=== PATIENT | female | born 1990 | race Caucasian/White ===

== ENCOUNTER 2023-06-28 20:35 | Outpatient (REF) | payer OTHER, SELFPAY ==
[2023-07-03 07:09] LABS: Age Gdln ACOG Testing Note (.); HPV Aptima Negative (Negative); IGP, Aptima HPV, rfx 16/18,45 Note (.)
== END 2023-06-28 20:36 | disposition home or self-care (01) ==
LOC: LAB 20:35
PROVIDERS: Visit Provider Obstetrics & Gynecology
DX: Z12.4 Encounter for screening for malignant neoplasm of cervix (principal)
CPT/HCPCS: 87624; G0145

== ENCOUNTER 2023-06-30 08:31 | Outpatient (OUT) | payer OTHER, SELFPAY ==
--- NOTE | 2023-06-30 08:32 | US_ITS ---
The [address] [address] Patient Name: PAM LAST MRN: [id number] date: 1990 Sex: F Assigned Patient Location: Current Patient Location: US Accession/Order Number: [id number] Exam Date: 06/30/2023 08:31 Report Date: 06/30/2023 09:19 At the request of: AMAN IRVING Procedure: US pelvis w/ transvaginal EXAM: Pelvic ultrasound HISTORY: . IUD PLACEMENT . COMPARISON: None. TECHNIQUE: Transabdominal and transvaginal scanning was performed FINDINGS: Scanning of the pelvis demonstrates an anteverted uterus measuring 7.8 x 3.9 x 4.9 cm. Endometrial complex measures 7 mm. Echogenic linear foci are noted within the endometrial complex consistent with an IUD which appears in adequate position. Right ovary measures 3.3 x 1.8 x 2.8 cm. Color-flow is noted. Resistive indexes 0.6. Follicles are noted. Left ovary measures 2.3 x 1 x 1.9 cm. Color-flow was noted. Follicles are noted. No free fluid was noted in the cul-de-sac. US/US pelvis w/ transvaginal IMPRESSION: 1. Normal-appearing uterus and endometrial complex with IUD in place. 2. Normal-appearing ovaries. Electronically authenticated by: ELVIN SMITH Date: 06/30/2023 09:19
== END 2023-06-30 08:32 | disposition home or self-care (01) ==
LOC: US 08:31
PROVIDERS: Visit Provider Obstetrics & Gynecology
DX: N93.8 Other specified abnormal uterine and vaginal bleeding (principal)
CPT/HCPCS: 76830; 76856

== ENCOUNTER 2023-09-30 10:10 | Emergency (ER) | payer OTHER, SELFPAY ==
[2023-09-30 10:16] VITALS: BP 122/86; PULSE 92; RESP 16; TEMP 36.7; O2SAT 96; BMI 39.0
--- NOTE | 2023-09-30 10:33 | ED.ABDPAIN1 ---
HPI - Abdominal Pain General Chief Complaint: Abdominal Pain Stated Complaint: ABD PAIN X3 DAYS Time Seen by Provider: 09/30/23 10:27 Source: patient Mode of arrival: walk-in History of Present Illness HPI narrative: 33-year-old female presents for abdominal pain. It's in the epigastric area and right upper quadrant and she's had it for three days. It's keeping her awake at night. She's never had gallbladder issues. The fever or constipation. She has had some slight diarrhea but that is normal for her. The pain is moderate. Related Data Home Medications Medication Instructions Recorded Confirmed empagliflozin 25 mg tablet 25 mg PO DAILY 09/30/23 09/30/23 (Jardiance) metformin 500 mg tablet 1,000 mg PO QAM 09/30/23 09/30/23 tirzepatide 10 mg/0.5 mL 10 mg subcut QAM 09/30/23 09/30/23 subcutaneous pen injector (Mounjaro) Previous Rx's Medication Instructions Recorded acetaminophen 300 mg-codeine 30 mg 1 tab PO Q6H PRN pain 5 days #20 09/30/23 tablet tabs ondansetron 4 mg disintegrating 4 mg PO Q6H PRN nausea and 09/30/23 tablet vomiting #20 tabs Allergies Allergy/AdvReac Type Severity Reaction Status Date / Time No Known Drug Allergies Allergy Verified 09/30/23 10:16 Review of Systems ROS Narrative A ten point review of systems is negative except as noted above. Exam Narrative Exam Narrative: Nurses note and vital signs reviewed and patient is not hypoxic. General: The patient appears well and in no apparent distress. Patient is resting comfortably on cart. Skin: Warm, dry, no pallor noted. There is no rash noted. Head: Normocephalic, atraumatic Eye: Normal conjunctiva, no drainage Ears, Nose, Mouth, and Throat: oral mucosa is moist. Nares patent. Cardiovascular: Regular Rate and Rhythm Respiratory: Patient is in no distress, no accessory muscle use, lungs are clear to auscultation, no wheezing, rales or rhonchi Back: non-tender GI: mild tenderness in the epigastric area and right upper quadrant. No mass. Musculoskeletal: The patient has no evidence of calf tenderness, no pitting edema, symmetrical pulses noted bilaterally Neurological: A&O, normal speech Psychiatric: Cooperative Constitutional Vital Signs, click to edit/add: Last Vital Signs Temp 98.0 F 09/30/23 10:16 Pulse 92 H 09/30/23 10:16 Resp 16 09/30/23 10:16 BP 122/86 09/30/23 10:16 Pulse Ox 96 09/30/23 10:16 O2 Del Method Room Air 09/30/23 10:16 Course Vital Signs Vital signs: Vital Signs Temperature 98.0 F 09/30/23 10:16 Pulse Rate 92 H 09/30/23 10:16 Respiratory Rate 16 09/30/23 10:16 Blood Pressure 122/86 09/30/23 10:16 Pulse Oximetry 96 09/30/23 10:16 Oxygen Delivery Method Room Air 09/30/23 10:16 Temperature 98.0 F 09/30/23 10:16 Pulse Rate 92 H 09/30/23 10:16 Respiratory Rate 16 09/30/23 10:16 Blood Pressure 122/86 09/30/23 10:16 Pulse Oximetry 96 09/30/23 10:16 Oxygen Delivery Method Room Air 09/30/23 10:16 MDM - Abdominal Pain MDM Narrative Medical decision making narrative: Blood work is nonspecific. GB ultrasound shows stones. She is referred to general surgery. No evidence of acute cholecystitis. Treatment diagnosis and follow-up were discussed with the patient. Differential Diagnosis Differential diagnosis: Likely abdominal pain, pancreatitis and other (biliary colic, cholelithiasis, hepatitis) Lab Data Attestation: I reviewed the patient's lab results. Labs: Lab Results 09/30/23 Range/Units 10:25 WBC 11.1 H (4.0-11.0) 10^3/uL RBC 5.21 (4.20-5.40) 10^6/uL Hgb 13.1 (12.0-16.0) g/dL Hct 42.0 (36.0-48.0) % MCV 80.6 L (81.0-99.0) fL MCH 25.1 L (26.7-34.0) pg MCHC 31.2 (29.9-35.2) g/dL RDW 15.4 H (11.0-15.0) % Plt Count 368 (150-450) 10^3/uL MPV 9.3 L (9.5-13.5) fL Neut % (Auto) 61.1 (43.0-75.0) % Lymph % (Auto) 31.7 (20.5-60.0) % [place] % (Auto) 5.1 (1.7-12.0) % Eos % (Auto) 0.8 L (0.9-7.0) % Baso % (Auto) 0.6 (0.2-2.0) % Neut # (Auto) 6.8 H (1.4-6.5) 10^3/uL Lymph # (Auto) 3.5 (1.2-3.8) 10^3/uL [place] # (Auto) 0.6 (0.3-0.8) 10^3/uL Eos # (Auto) 0.1 (0.0-0.7) 10^3/uL Baso # (Auto) 0.1 (0.0-0.1) 10^3/uL Abs Immat Gran (auto) 0.08 H (0.00-0.03) 10^3/uL Imm/Tot Granulo (auto) 0.7 H (0.0-0.5) % Sodium 135 L (136-145) mmol/L Potassium 3.5 (3.5-5.1) mmol/L Chloride 100 (98-107) mmol/L Carbon Dioxide 25.2 (21.0-32.0) mmol/L Anion Gap 13.3 BUN 6.0 L (7.0-18.0) mg/dL Creatinine 0.67 (0.55-1.02) mg/dL Est GFR ( Amer) >60 (>=60) Est GFR (Non-Af Amer) >60 (>=60) BUN/Creatinine Ratio 9.0 Glucose 142 H (74-106) mg/dL Calcium 9.5 (8.5-10.1) mg/dL Total Bilirubin 1.0 (0.2-1.0) mg/dL Direct Bilirubin 0.2 (0.0-0.2) mg/dL AST 9 L (15-37) U/L ALT 20 (14-59) U/L Alkaline Phosphatase 67 (46-116) U/L Total Protein 7.9 (6.4-8.2) g/dL Albumin 3.7 (3.4-5.0) g/dL Globulin 4.2 g/dL Albumin/Globulin Ratio 0.9 Amylase 31 (25-115) U/L Lipase 24.0 (16.0-77.0) U/L Imaging Data gallbladder ultrasound: Radiologist's impression: ITS Impressions Upper Quadrant Ultrasound 09/30/23 11:13 IMPRESSION: Enlarged echogenic liver. Consider hepatic steatosis Cholelithiasis without evidence of acute cholecystitis Electronically authenticated by: ELVIN DELGADILLO Date: 09/30/2023 11:57 Discharge Plan Discharge Chief Complaint: Abdominal Pain Clinical Impression: Cholelithiasis Patient Disposition: Home, Self-Care Time of Disposition Decision: 12:08 Condition: Good Mode of Transportation: Private Vehicle Prescriptions / Home Meds: New acetaminophen-codeine 300-30 mg tablet 1 tab PO Q6H PRN (Reason: pain) 5 Days Qty: 20 0RF ondansetron 4 mg tablet,disintegrating 4 mg PO Q6H PRN (Reason: nausea and vomiting) Qty: 20 0RF No Action Jardiance 25 mg tablet 25 mg PO DAILY metformin 500 mg tablet 1,000 mg PO QAM Mounjaro 10 mg/0.5 mL pen injector 10 mg SUBCUT QAM Instructions: Gallstones (ED) Additional Instructions: Follow-up with Dr. Ellsworth Stand Alone Forms: Portal Instructions Referrals: Physician,Non-Staff, MD [Primary Care Provider] - 1 week
[2023-09-30 10:39] LABS: Basophils Absolute Auto 0.1 10^3/uL (0.0-0.1); Basophils Percent Auto 0.6 % (0.2-2.0); Eosinophils Absolute Auto 0.1 10^3/uL (0.0-0.7); Eosinophils Percent Auto 0.8 % (0.9-7.0); Hemoglobin 13.1 g/dL (12.0-16.0); Immature Granulocytes Abs Auto 0.08 10^3/uL (0.00-0.03); Immature Granulocytes Pct Auto 0.7 % (0.0-0.5); Lymphocytes Absolute Auto 3.5 10^3/uL (1.2-3.8); Lymphocytes Percent Auto 31.7 % (20.5-60.0); Mean Corpuscular HGB Conc 31.2 g/dL (29.9-35.2); Mean Corpuscular Hemoglobin 25.1 pg (26.7-34.0); Mean Corpuscular Volume 80.6 fL (81.0-99.0); Mean Platelet Volume 9.3 fL (9.5-13.5); Monocytes Absolute Auto 0.6 10^3/uL (0.3-0.8); Monocytes Percent Auto 5.1 % (1.7-12.0); Neutrophils Absolute Auto 6.8 10^3/uL (1.4-6.5); Neutrophils Percent Auto 61.1 % (43.0-75.0); Platelet Count 368 10^3/uL (150-450); Red Blood Count 5.21 10^6/uL (4.20-5.40); Red Cell Distribution Width 15.4 % (11.0-15.0); White Blood Count 11.1 10^3/uL (4.0-11.0)
[2023-09-30 10:56] LABS: Alanine Aminotransferase 20 U/L (14-59); Albumin Globulin Ratio 0.9; Albumin Level 3.7 g/dL (3.4-5.0); Alkaline Phosphatase 67 U/L (46-116); Amylase 31 U/L (25-115); Anion Gap 13.3; Aspartate Amino Transferase 9 U/L (15-37); Bilirubin Direct 0.2 mg/dL (0.0-0.2); Calcium 9.5 mg/dL (8.5-10.1); Carbon Dioxide 25.2 mmol/L (21.0-32.0); Chloride 100 mmol/L (98-107); Estimated GFR (African America >60 (>=60); Estimated GFR (Non-African Ame >60 (>=60); Globulin 4.2 g/dL; Glucose 142 mg/dL (74-106); Potassium 3.5 mmol/L (3.5-5.1); Sodium 135 mmol/L (136-145); Total Protein 7.9 g/dL (6.4-8.2)
--- NOTE | 2023-09-30 11:13 | US_ITS ---
The [place] [id number] Patient Name: PAM LAST MRN: [id number] date: 1990 Sex: F Assigned Patient Location: ER Current Patient Location: ER Accession/Order Number: [id number] Exam Date: 09/30/2023 11:15 Report Date: 09/30/2023 11:57 At the request of: NATHALIA ACUNA Procedure: US right upper quadrant EXAM: US right upper quadrant HISTORY: pain COMPARISON: None. TECHNIQUE: Grayscale, color and Doppler FINDINGS: The liver is enlarged in size measuring 23 cm in length. Diffuse increase in hepatic echotexture with no focal mass. Hepatopedal flow in the main portal vein. The gallbladder is normal in size. Negative sonographic Walker sign. The wall measures 2 mm. Echogenic foci in the anterior wall measuring 7 mm, an adherent stone is favored. The common bile duct measures 3.7 mm, normal. The visualized pancreas is normal The right kidney is normal measuring 13.4 x 5.9 x 5.4 cm. US/US right upper quadrant IMPRESSION: Enlarged echogenic liver. Consider hepatic steatosis Cholelithiasis without evidence of acute cholecystitis Electronically authenticated by: ELVIN DELGADILLO Date: 09/30/2023 11:57
== END 2023-09-30 12:19 | disposition home or self-care (01) ==
PROVIDERS: Emergency Provider Emergency Medicine
DX: K80.20 Calculus of gallbladder without cholecystitis without obstruction (principal); Z79.899 Other long term (current) drug therapy; Z79.84 Long term (current) use of oral hypoglycemic drugs
CPT/HCPCS: 36415; 76705; 80048; 80076; 82150; 83690; 85025; 99284

== ENCOUNTER 2023-11-17 09:20 | Emergency (ER) | payer OTHER, SELFPAY ==
[2023-11-17] VITALS (20 sets, daily range): BP systolic 126–129; BP diastolic 85; PULSE 75–91; RESP 9–19; TEMP 36.7; O2SAT 91–100; BMI 36.9
--- OUTSIDE RECORDS SUMMARY | 2023-11-17 09:37 | XMS_ITS | CCD ---
Author Name Unknown Address [email or web address] [place] [address] Organization [facility] Care Team Providers Care Vocational Rehabilitation Administrator Name Role Phone Abbi Martin Unavailable Unavailable Abbi Martin Unavailable Unavailable YUMIKO BOUDREAUX Unavailable Unavailable Abbi Martin Unavailable Unavailable Abbi Martin Unavailable Unavailable NONE, XXXX Unavailable Unavailable MD Lisa Moe Primary Care Provider MD Kelly Black Attending Provider MD Lisa Meo Primary Care Provider MD Kelly Black Attending Provider [phone] MD Dimple Del Rosario Attending Provider MD Kelly Black Referring Provider DO Leeroy Collazo M Emergency Provider ABHI, DR LAND Primary Care Unavailable ARISTIDES ., DR NEWTON Attending Unavailable ARISTIDES ., DR NEWTON Admitting Unavailable ABHI, DR LAND Primary Care Unavailable ARISTIDES ., DR NEWTON Attending Unavailable ARISTIDES ., DR NEWTON Admitting Unavailable ARISTIDES ., DR NEWTON Consulting Unavailable ZIEBER, DR JUAN JOSE Lopez Consulting Unavailable ARISTIDES ., DR NEWTON Attending Unavailable REQUEST, DR FISHER LISTED Primary Care Unavaila ble ARISTIDES ., DR NEWTON Admitting Unavailable ABHI, DR LAND Primary Care Unavailable ARISTIDES ., DR NEWTON Attending Unavailable ARISTIDES ., DR NEWTON Admitting Unavailable ABHI, DR LAND Primary Care Unavailable ARISTIDES ., DR NEWTON Attending Unavailable ARISTIDES ., DR NEWTON Admitting Unavailable ARISTIDES ., DR NEWTON Admitting Unavailable ARISTIDES ., DR NEWTON Attending Unavailable REQUEST, NONE LISTED Primary Care Unavaila ble ABHI, DR LAND Primary Care Unavailable KEARA, DR LOERA Admitting Unavailable KEARA, DR LOERA Attending Unavailable GRECHNY ., BENITO LECHUGA Consulting Unavailabl e HO, ARACELIS Consulting Unavailable KLIPPER, ELVIN Consulting Unavailable ABHI, DR LAND Primary Care Unavailable MISC, DR YANG Admitting Unavailable MISC, DR YANG Attending Unavailable MISC, DR YANG Consulting Unavailable ARISTIDES ., DR NEWTON Attending Unavailable ABHI, DR LAND Primary Care Unavailable PEVELY, DR ELVIN George Consulting Unavailable ARISTIDES ., DR NEWTON Admitting Unavailable ARISTIDES ., DR NEWTON Consulting Unavailable ARISTIDES ., DR NEWTON Consulting Unavailable ARISTIDES ., DR NEWTON Admitting Unavailable ARISTIDES ., DR NEWTON Attending Unavailable REQUEST, DR NONE LISTED Primary Care Unavaila ble ZIEBER, DR JUAN JOSE Lopez Consulting Unavailable ABHI, DR LAND Primary Care Unavailable ARISTIDES ., DR NEWTON Consulting Unavailable ARISTIDES ., DR NEWTON Attending Unavailable ARISTIDES ., DR NEWTON Admitting Unavailable KARASIK ., DR SIU Attending Unavailabl e KARASIK ., DR SIU Admitting Unavailabl e KARASIK ., DR SIU Consulting Unavailabl e REQUEST, NONE LISTED Primary Care Unavaila ble ABHI, DR LAND Primary Care Unavailable ARISTIDES ., DR NEWTON Attending Unavailable ARISTIDES ., DR NEWTON Consulting Unavailable ARISTIDES ., DR NEWTON Admitting Unavailable ZIEBER, DR JUA NJOSE Lopez Consulting Unavailable KARASIK ., DR SIU Attending Unavailabl e KARASIK ., DR SIU Admitting Unavailabl e KARASIK ., DR SIU Consulting Unavailabl e ABHI, DR LAND Primary Care Unavailable ARISTIDES ., DR NEWTON Consulting Unavailable ZIEBER, DR JUAN JOSE Lopez Consulting Unavailable ABHI, DR LAND Primary Care Unavailable IMMANUEL VARGHESE Attending Unavailable HALIMA, IMMANUEL Admitting Unavailable IMMANUEL VARGHESE Consulting Unavailable ABHI, DR LAND Primary Care Unavailable ARISTIDES ., DR NEWTON Attending Unavailable ARISTIDES ., DR NEWTON Consulting Unavailable ARISTIDES ., DR NEWTON Admitting Unavailable ZIEBER, DR JUAN JOSE Lopez Consulting Unavailable ABHI, DR LAND Primary Care Unavailable ARISTIDES ., DR NEWTON Admitting Unavailable ARISTIDES ., DR NEWTON Consulting Unavailable ARISTIDES ., DR NEWTON Attending Unavailable ARISTIDES ., DR NEWTON Admitting Unavailable REQUEST, DR NONE LISTED Primary Care Unavaila ble ARISTIDES ., DR NEWTON Consulting Unavailable ARISTIDES ., DR NEWTON Attending Unavailable PASQUALE VERDUZCO Consulting Unavailable UGBANA, SHERRYWA Consulting Unavailable NAINA II, BROOKLYN Consulting Unavailable ARISTIDES ., DR NEWTON Admitting Unavailable REQUEST, DR NONE LISTED Primary Care Unavaila ble ARISTIDES ., DR NEWTON Attending Unavailable Vale, Leeroy M Attending Unavailable Vale, Leeroy M Admitting Unavailable [place], Rugen M Primary Care Unavailable [place] Lisa LOVETT Primary Care Provider [phone] ABHI, RUGEN M Referring Unavailable ABHI, RUGEN M Primary Care Unavailable ELVIN VALENTE Attending Unavailable ELVIN VALENTE Referring Unavailable ABHI, RUGEN M Primary Care Unavailable ELVIN VALENTE Referring Unavailable ABHI, RUGEN M Primary Care Unavailable WALDEMAR, MENNATALLAH M Admitting Unavailable WALDEMAR, MENNATALLAH M Attending Unavailable WALDEMAR, MENNATALLAH M Referring Unavailable ABHI, RUGEN M Primary Care Unavailable MAINOR FINE Attending Unavailable ABHI, RUGEN M Primary Care Unavailable ABHI, RUGEN M Referring Unavailable ABHI, RUGEN M Primary Care Unavailable ABHI, RUGEN M Referring Unavailable ABHI, RUGEN M Primary Care Unavailable ABHI, RUGEN M Referring Unavailable ABHI, RUGEN M Primary Care Unavailable WALDEMAR, MENNATALLAH M Attending Unavailable ABHI, RUGEN M Referring Unavailable ABHI, RUGEN M Primary Care Unavailable FEMI GARCIA Attending Unavailable ABHI, RUGEN M Referring Unavailable ABHI, RUGEN M Primary Care Unavailable Medications Current Medications Medication Drug Class(es) Dates Sig (Normalized) Sig (Original) amphetamine aspartate 7.5 mg / amphetamine sulfate 7.5 mg / dextroamphetamine saccharate 7.5 mg / dextroamphetamine sulfate 7.5 mg oral tablet (3 sources) Central Nervous System Stimulant Start: 08-24-2023 take 1 tablet by mouth in the morning dextroamphetamine- amphetamine (ADDERALL) 30 mg tablet Take 1 tablet (30 mg total) by mouth in the morning. 0 08/24/2023 Active empagliflozin 25 mg oral tablet (3 sources) Sodium-Glucose Cotransporter 2 Inhibitor Start: 02-26-2023 End: 02-21-2024 take 1 tablet by mouth in the morning empagliflozin (JARDIANCE) 25 mg tablet tablet Take 1 tablet (25 mg total) by mouth in the morning. 0 02/26/2023 02/21/2024 Active ferrous sulfate 325 mg oral tablet (3 sources) Start: 07-13-2022 take 1 tablet by mouth twice daily Ferrous Sulfate (Iron) 325 mg (65 mg iron) Tablet Active 325 MG PO Twice daily July 12, 2022 11:00pm End: 10-12-2023 take 1 tablet by mouth once daily at breakfast ferrous sulfate 325 (65 FE) mg tablet Take 1 tablet (325 mg total) by mouth daily with breakfast. 0 10/12/2023 Discontinued (Therapy completed) 3 ml insulin glargine 300 unt/ml pen injector (2 sources) Insulin Analog Start: 07-13-2022 inject 22 [IU] by subcutaneous injection once daily Insulin Glargine U-300 Conc (Toujeo Max U-300 Solostar) 300 unit/mL (3 mL) Insulin Pen Active 22 UNIT SUBCUT Daily July 12, 2022 11:00pm levonorgestrel 0.063235 mg/hr intrauterine system (3 sources) Progestin, Progestin-contain ing Intrauterine Device Start: 03-16-2023 levonorgestreL (MIRENA) 21 mcg/24 hours (8 yrs) 52 mg IUD 1 each by intrauterine route once. 0 03/16/2023 Active metFORMIN hydrochloride 500 mg oral tablet (5 sources) Biguanide Start: 07-13-2022 metFORMIN (GLUCOPHAGE) 500 mg tablet Take 1000 mg (2 tablets) in the AM with breakfast and 1000 mg (2 tablets) in the evening 120 tablet 1 12/03/2022 Active ondansetron 4 mg disintegrating oral tablet (3 sources) Serotonin-3 Receptor Antagonist Start: 09-30-2023 take 1 tablet by mouth every eight hours as needed ondansetron ODT (ZOFRAN ODT) 4 mg disintegrating tablet Dissolve 1 tablet (4 mg total) on tongue every 8 (eight) hours as needed. 0 09/30/2023 Active Vit 28-Iron Fum-Folic (2 sources) Start: 07-13-2022 take 1 tablet by mouth once daily Vit 28-Iron Fum-Folic Active 1 TAB PO Daily July 12, 2022 11:00pm tirzepatide (MOUNJARO) 10 mg/0.5 mL pen injector (2 sources) tirzepatide (MOUNJARO) 10 mg/0.5 mL pen injector Inject 10 mg under the skin every 7 days. sundays 0 Active Completed/Discontinued Medications Medication Drug Class(es) Dates Sig (Normalized) Sig (Original) acetaminophen 500 mg oral tablet (1 source) Start: 10-25-2023 End: 11-08-2023 take 2 tablets by mouth every six hours acetaminophen (TYLENOL EXTRA STRENGTH) 500 mg tablet Take 2 tablets (1,000 mg total) by mouth every 6 (six) hours. 30 tablet 0 10/25/2023 11/08/2023 Discontinued (Patient Stopped On Own) aspirin 81 mg chewable tablet (1 source) Platelet Aggregation Inhibitor, Nonsteroidal Anti-inflammatory Drug Start: 09-27-2022 End: 10-12-2023 aspirin 81 mg chewable tablet Indications: with 11 completed weeks gestation , Pre-existing type 2 diabetes mellitus in in first trimester CHEW AND SWALLOW 1 TABLET BY MOUTH IN THE MORNING FOR 220 DAYS 90 tablet 1 09/27/2022 10/12/2023 Discontinued (Therapy completed) blood-glucose meter,continuous (DEXCOM G6 ASSOCIATE SOFTWARE DEVELOPER) misc (1 source) Start: 11-09-2022 End: 10-12-2023 blood-glucose meter,continuous (DEXCOM G6 ASSOCIATE SOFTWARE DEVELOPER) misc Indications: Pre-existing type 2 diabetes mellitus in in first trimester One unit 1 each 0 11/09/2022 10/12/2023 Discontinued (Therapy completed) blood-glucose sensor (DEXCOM G6 SENSOR) device (1 source) Start: 11-12-2022 End: 10-12-2023 blood-glucose sensor (DEXCOM G6 SENSOR) device Replace sensor every 10 days 9 each 3 11/12/2022 10/12/2023 Discontinued (Therapy completed) blood-glucose transmitter (DEXCOM G6 TRANSMITTER) device (1 source) Start: 11-12-2022 End: 10-12-2023 blood-glucose transmitter (DEXCOM G6 TRANSMITTER) device Indications: Pre-existing type 2 diabetes mellitus in in first trimester 1 unit to be used every 90 days 1 each 2 11/12/2022 10/12/2023 Discontinued (Therapy completed) cholecalciferol 0.025 mg oral capsule (1 source) Vitamin D Start: 01-05-2023 End: 10-12-2023 take 1 capsule by mouth in the morning cholecalciferol, vitamin D3, 25 mcg (1,000 unit) capsule Take 1 capsule (1,000 Units total) by mouth in the morning. 30 capsule 6 01/05/2023 10/12/2023 Discontinued (Therapy completed) DEXCOM G6 SENSOR device (1 source) Start: 09-08-2022 End: 10-12-2023 DEXCOM G6 SENSOR device Indications: Pre-existing type 2 diabetes mellitus in in first trimester USE 1 UNIT ONCE DAILY FOR 1 DOSE 3 each 20 09/08/2022 10/12/2023 Discontinued (Therapy completed) ibuprofen 600 mg oral tablet (1 source) Nonsteroidal Anti-inflammatory Drug Start: 10-25-2023 End: 11-08-2023 take 1 tablet by mouth every six hours ibuprofen (MOTRIN) 600 mg tablet Take 1 tablet (600 mg total) by mouth every 6 (six) hours. 30 tablet 0 10/25/2023 11/08/2023 Discontinued (Patient Stopped On Own) 3 ml insulin, regular, human 500 unt/ml pen injector (1 source) Insulin Start: 01-11-2023 End: 10-12-2023 insulin regular human U-500 concentrated (HumuLIN R U-500 conc KWIKPEN) injection Take 190 units with breakfast, 50 units with lunch and 210 units with dinner. Stop all other insulins 30 mL 1 01/11/2023 10/12/2023 Discontinued (Therapy completed) labetalol hydrochloride 200 mg oral tablet (1 source) beta-Adrenergic Saul End: 10-12-2023 take 1 tablet by mouth in the morning, then take 1 tablet by mouth at bedtime labetaloL (NORMODYNE) 200 mg tablet Take 1 tablet (200 mg total) by mouth in the morning and 1 tablet (200 mg total) before bedtime. 0 10/12/2023 Discontinued (Therapy completed) [id number] fumarate-FA () 28-800 mg-mcg tablet (1 source) End: 10-12-2023 SLC838-jplylim fumarate-FA () 28-800 mg-mcg tablet Take by mouth. 0 10/12/2023 Discontinued (Therapy completed) semaglutide 3 mg oral tablet (1 source) Start: 01-20-2023 End: 10-12-2023 take 1 tablet by mouth in the morning semaglutide (RYBELSUS) 3 mg tablet Take 3 mg by mouth in the morning. Not to start until after completed (estimated date February 02). 30 tablet 1 01/20/2023 10/12/2023 Discontinued (Therapy completed) Problems Active Problems Problem Classification Problem Date Documented Date Episodic/Chronic Biliary tract disease (4 sources) Biliary colic; Translations: [Calculus of bile duct without cholangitis or cholecystitis without obstruction] Onset: 10-12-2023 10-12-2023 Episodic Diabetes mellitus without complication (2 sources) Type 2 diabetes mellitus without complication; Translations: [Type 2 diabetes mellitus without complications] Onset: 10-15-2023 10-12-2023 Chronic Diabetes or abnormal glucose tolerance complicating ; childbirth; or the puerperium (4 sources) Pre-existing type 2 diabetes mellitus, in , third trimester; Translations: [Pre-existing type 2 diabetes mellitus in ] Onset: 08-19-2022 12-07-2022 Chronic Diabetes or abnormal glucose tolerance complicating ; childbirth; or the puerperium (4 sources) Gestational diabetes mellitus in , insulin controlled; Translations: [GESTATIONAL DM PREG INSULIN CONTROL] Onset: 01-12-2023 Episodic Hemorrhage during ; abruptio placenta; placenta previa (2 sources) Antepartum hemorrhage; Translations: [Hemorrhage in early , unspecified] 07-31-2022 Episodic Hypertension complicating ; childbirth and the puerperium (4 sources) Unspecified pre-existing hypertension complicating , third trimester; Translations: [Chronic hypertension complicating AND/OR reason for care during ] Onset: 11-10-2022 11-10-2022 Chronic Hypertension complicating ; childbirth and the puerperium (1 source) Gestational [-induced] hypertension without significant proteinuria, third trimester; Translations: [GEST HTN NO SIG PROTEINURIA 3RD TRI] Onset: 01-10-2023 Episodic Nutritional deficiencies (3 sources) Iron deficiency; Translations: [Iron deficiency] 07-14-2022 Episodic Other complications of (3 sources) Obesity; Translations: [Obesity complicating , unspecified trimester] Onset: 10-05-2022 11-10-2022 Chronic Other complications of (4 sources) Other specified related conditions, third trimester; Translations: [OTH SPEC PREG RELATED COND 3RD TRI] Onset: 12-25-2022 Episodic Other complications of (1 source) Supervision of other high risk pregnancies, third trimester; Translations: [SUP OTH HIGH RISK 3RD TRI] Onset: 12-18-2022 Episodic Residual codes; unclassified (1 source) 34 weeks gestation of ; Translations: [34 WEEKS GESTATION OF ] Onset: 01-16-2023 Episodic Residual codes; unclassified (1 source) 33 weeks gestation of ; Translations: [33 WEEKS GESTATION OF ] Onset: 01-10-2023 Episodic Residual codes; unclassified (1 source) 32 weeks gestation of ; Translations: [32 WEEKS GESTATION OF ] Onset: 01-03-2023 Episodic Residual codes; unclassified (1 source) 31 weeks gestation of ; Translations: [31 WEEKS GESTATION OF ] Onset: 12-25-2022 Episodic Residual codes; unclassified (1 source) 30 weeks gestation of ; Translations: [30 WEEKS GESTATION OF ] Onset: 12-18-2022 Episodic Residual codes; unclassified (1 source) 29 weeks gestation of ; Translations: [29 WEEKS GESTATION OF ] Onset: 12-12-2022 Episodic Residual codes; unclassified (1 source) Acquired absence of other specified parts of digestive tract; Translations: [Acquired absence of other specified parts of digestive tract] Onset: 11-08-2023 Episodic Residual codes; unclassified (1 source) Pain, unspecified; Translations: [Pain, unspecified] Onset: 10-05-2023 Episodic Thyroid disorders (3 sources) Hypothyroidism; Translations: [Hypothyroidism, unspecified] 07-14-2022 Chronic Unclassified (1 source) Post-op Onset: 11-08-2023 Unclassified (1 source) Cholelithiasis Onset: 10-12-2023 Past or Other Problems Problem Classification Problem Date Documented Da te Episodic/Chronic Abdominal pain (4 sources) Pelvic and perineal pain; Translations: [Unspecified abdominal pain] Onset: 07-31-2022 Episodic E Codes: Fall (1 source) Fall on same level from slipping, tripping and stumbling with subsequent striking against unspecified object, initial encounter; Translations: [FALL SAME LVL SLIP STRK UNS OBJ INT] Onset: 09-18-2022 Episodic Other aftercare (1 source) shelter (current) use of aspirin; Translations: [OCEAN FORWARDER CURRENT USE OF ASPIRIN] Onset: 09-18-2022 Episodic Other aftercare (1 source) petroleum terminal plant operator (current) use of insulin; Translations: [JAIL CURRENT USE OF INSULIN] Onset: 09-18-2022 Episodic Other aftercare (1 source) Other long chain quiller tender (current) drug therapy; Translations: [OTH OCEAN FORWARDER CURRENT DRUG THERAPY] Onset: 09-18-2022 Episodic Other circulatory disease (1 source) Elevated blood-pressure reading, without diagnosis of hypertension; Translations: [ELEVATED BP READING W/O DX HTN] Onset: 09-09-2022 Episodic Other complications of (1 source) Injury, poisoning and certain other consequences of external causes complicating , second trimester; Translations: [INJ POISON OTH EXT COMP PG 2ND TRI] Onset: 09-18-2022 Episodic Other complications of (4 sources) Other specified related conditions, second trimester; Translations: [OTH SPEC PREG RELATED COND 2ND TRI] Onset: 09-02-2022 Episodic Other complications of (1 source) Spotting complicating , unspecified trimester; Translations: [Spotting complicating , unspecified trimester] Onset: 07-31-2022 Episodic Other complications of (3 sources) Abnormal glucose tolerance in mother complicating , childbirth AND/OR puerperium; Translations: [Other specified related conditions, unspecified trimester] Onset: 11-10-2022 11-10-2022 Episodic Other complications of (3 sources) Edema; Translations: [Gestational edema, third trimester] Onset: 01-14-2023 01-14-2023 Episodic Residual codes; unclassified (1 source) 17 weeks gestation of ; Translations: [17 WEEKS GESTATION OF ] Onset: 09-18-2022 Episodic Residual codes; unclassified (1 source) 15 weeks gestation of ; Translations: [15 WEEKS GESTATION OF ] Onset: 09-09-2022 Episodic Screening and history of mental health and substance abuse codes (1 source) Personal history of nicotine dependence; Translations: [PERSONAL HISTORY OF NICOTINE DEPEND] Onset: 09-18-2022 Episodic Sprains and strains (1 source) Unspecified sprain of left wrist, initial encounter; Translations: [UNSPECIFIED SPRAIN LT WRIST INITIAL] Onset: 09-18-2022 Episodic Superficial injury; contusion (1 source) Contusion of abdominal wall, initial encounter; Translations: [CONTUSION ABDOMINAL WALL INITIAL] Onset: 09-18-2022 Episodic Results Test Name Value Interpretation Reference Range Facility HCG ( test) Ql (U)o n 10-25-2023 Beta HCG ( test) Ql (U) Negative Normal NEG [facility] Comment on above: Performed By: #### 2 106-3 #### [facility] ([id number]) [address] [place] [address], [place] [address] Surgical Pathologyon 024 Surgical Pathology Normal [facility] Comment on above: Result Comment: [facility] [address] [place] [address] Surgical Pathology Consultation Patient Name:SHANELL LAST:1990 (Age: 33)Gender:FTaken:4Reported:10/28/2023hysician(s):Colin Medeiros MD ([phone])Copy To: Rec. #:[id number]: #[id number] Final Pathologic Diagnosis Gallbladder (1 H&E): Mild chronic cholecystitis. Cholesterolosis. Report Electronically Signed Out gp/10/28/2023Mansoor Jefferson MD Interpretation performed at [address] [address], License number: [id number]. Clinical History Biliary colic. Gross Description Received in formalin labeled LAST, gallbladder is an intact gallbladder, 7.0 x 3.0 x 2.3 cm. The cystic duct is marked with a white plastic clamp, which is removed and the resection margin is shaved. The serosa is sanches-carrera smooth and glistening and the opposing hepatic bed is sanches-brown roughened and cauterized. The gallbladder is opened to reveal hemorrhagic mucoid bile. No calculi are identified within the lumen or within the container. The gallbladder mucosa is hemorrhagic and entirely surfaced by yellow flecks. Reproduction Technician sections are submitted in a single cassette to include the shaved cystic duct, a outside sales representative section of the gallbladder neck body and fundus. (1,ss,[id number], m6) [facility]/10/25/2023O Microscopic Findings Microscopic examination performed. Specimen(s) Received Gallbladder Fee Codes(s): 1; 38082 BASIC METABOLIC PANLon 10-15 Anion gap [Moles/Vol] 9 mmol/L Normal 5-15 [facility] Comment on above: Performed By: #### B MP #### [facility] ([id number]) [address] [place] [address] Calcium [Mass/Vol] 9.4 mg/dL Normal 8.5-10.5 [facility] Comment on above: Performed By: #### B MP #### [facility] ([id number]) [address] [place] [address] Chloride [Moles/Vol] 104 mmol/L Normal 98-109 [facility] Comment on above: Performed By: #### B MP #### [facility] ([id number]) [address] [facility] [place] [address] CO2 [Moles/Vol] 27 mmol/L Normal 22-[address] [facility] Comment on above: Performed By: #### B MP #### [facility] ([id number]) [address] [facility] [place] [address] Creatinine [Mass/Vol] 0.68 mg/dL Normal 0.40-1.00 [facility] Comment on above: Result Comment: METH OD TRACEABLE TO IDMS STANDARD Performed By: #### B MP #### [facility] ([id number]) [address] [place] [address] eGFR (CKD-EPI) NON-RACE DEPENDENT >90 Normal >59 [facility] Comment on above: Result Comment: Reported eGFR is based on the CKD-EPI 2020 equation that does not use a race coefficient. Performed By: #### B MP #### [facility] ([id number]) [address] [place] [address] Glucose [Mass/Vol] 118 mg/dL High 65-99 [facility] Comment on above: Performed By: #### B MP #### [facility] ([id number]) [address] [address] Potassium [Moles/Vol] 3.8 mmol/L Normal 3.5-5.0 [facility] Comment on above: Performed By: #### B MP #### [facility] ([id number]) [address] [address] Sodium [Moles/Vol] 140 mmol/L Normal 134-146 [facility] Comment on above: Performed By: #### B MP #### [facility] ([id number]) [address] [address] Urea nitrogen [Mass/Vol] 10 mg/dL Normal 5-23 [facility] Comment on above: Performed By: #### B MP #### [facility] ([id number]) [address] [address] Basic Metabolic Panelon 09-21 Anion gap [Moles/Vol] 9 mmol/L 5 - 15 mmol/L [facility] Calcium [Mass/Vol] 9.4 mg/dL 8.5 - 10. 5 mg/dL [facility] Chloride [Moles/Vol] 104 mmol/L 98 - 10 9 mmol/L [facility] CO2 [Moles/Vol] 27 mmol/L 22 - 32 mmol/L [facility] Creatinine [Mass/Vol] 0.68 mg/dL 0.40 - 1.00 mg/dL [facility] Comment on above: METHOD TRACEABLE TO IDIL STANDARD eGFR (CKD-EPI)non-race dependent - PINF [facility] Comment on above: Reported eGFR is based on the CKD-EPI 2020 equation that does not use a race coefficient. Glucose [Mass/Vol] 118 mg/dL High 65 - 99 mg/dL [facility] Interpretation and review of laboratory results Abnormal [facility] Potassium [Moles/Vol] 3.8 mmol/L 3.5 - 5.0 mmol/L [facility] Sodium [Moles/Vol] 140 mmol/L 134 - 146 mmol/L [facility] Urea nitrogen [Mass/Vol] 10 mg/dL 5 - 23 mg/dL [facility] ECG 12 leadon 10-15-2023 TRACEMASTERVUE [facility] CBC AUTO DIFFon 01-21-2023 BASO # 0.1 103/ul Normal 0.0-0.1 [facility] Comment on above: Performed By: #### C BC #### [facility] [address] [place] [address] Dr. Debby Mota Basophils/100 WBC (Bld) 0.5 % Normal 0.2-2.0 [facility] Comment on above: Performed By: #### C BC #### [facility] [address] [place] [address] Dr. Debby Mota EO # 0.1 103/ul Normal 0.0-0.7 [facility] Comment on above: Performed By: #### C BC #### [facility] [address] [place] [address] Dr. Debby Mota Eosinophils/100 WBC (Bld) 0.6 % Critically low 0.9-7.0 [facility] Comment on above: Performed By: #### C BC #### [facility] [address] [place] [address] Dr. Debby Mota Erythrocyte distribution width (RBC) [Ratio] 15.8 % Critically high 11.0-15.0 [facility] Comment on above: Performed By: #### C BC #### [facility] [address] [place] [address] Dr. Debby Mota Hematocrit (Bld) [Volume fraction] 34.9 % Critically low 36.0-48.0 [facility] Comment on above: Performed By: #### C BC #### [facility] [address] [place] [address] Dr. Debby Mota Hemoglobin (Bld) [Mass/Vol] 10.8 g/dL Critically low 12.0-16.0 [facility] Comment on above: Performed By: #### C BC #### [facility] [address] [place] [address] Dr. Debby Mota IG # 0.24 10e3/ul Critically high 0.00-0.[address] [facility] Comment on above: Performed By: #### C BC #### [facility] [address] [place] [address] Dr. Debby Mota IG % 1.7 % Critically high 0.0-0.5 [facility] Comment on above: Performed By: #### C BC #### [facility] [address] [place] [address] Dr. Debby Mota LYMPH # 2.4 103/ul Normal 1.2-3.8 [facility] Comment on above: Performed By: #### C BC #### [facility] [address] [place] [address] Dr. Debby Mota Lymphocytes/100 WBC (Bld) 16.8 % Critically low 20.5-60.0 [facility] Comment on above: Performed By: #### C BC #### [facility] [address] [place] [address] Dr. Debby Mota MANUAL DIFF REQ NO Normal [facility] Comment on above: Performed By: #### C BC #### [facility] [address] [place] [address] Dr. Debby Mota MCH (RBC) [Entitic mass] 24.9 pg Critically low 26.7-34.0 [facility] Comment on above: Performed By: #### C BC #### [facility] [address] [address] [address] Debby Mota MCHC (RBC) [Mass/Vol] 30.9 g/dL Normal 29.9-35.2 [facility] Comment on above: Performed By: #### C BC #### [facility] [address] [address] [address] Debby Mota MCV (RBC) [Entitic vol] 80.6 fL Critically low 81.0-99. 0 [facility] Comment on above: Performed By: #### C BC #### [facility] [address] [address] [address] Debby Mota MONO # 0.8 103/ul Normal 0.3-0.8 [facility] Comment on above: Performed By: #### C BC #### [facility] [address] [address] [address] Debby Mota Monocytes/100 WBC (Bld) 5.8 % Normal 1.7-12.0 [facility] Comment on above: Performed By: #### C BC #### [facility] [address] [address] [address] Debby Mota NEUT # 10.6 103/ul Critically high 1.4-6.5 [facility] Comment on above: Performed By: #### C BC #### [facility] [address] [address] [address] Debby Mota Neutrophils/100 WBC (Bld) 74.6 % Normal 43.0-75.0 [facility] Comment on above: Performed By: #### C BC #### [facility] [address] [address] [address] Debby Mota Platelet mean volume (Bld) [Entitic vol] 9.8 fL Normal 9.5-13.5 [facility] Comment on above: Performed By: #### C BC #### [facility] [address] [address] [address] Debby Mota PLT 319 103/ul Normal 150-450 [facility] Comment on above: Performed By: #### C BC #### [facility] [address] [place] [address] Dr. Debby Mota RBC 4.33 106/ul Normal 4.20-5.40 [facility] Comment on above: Performed By: #### C BC #### [facility] [address] [place] [address] Dr. Debby Mota WBC 14.2 103/ul Critically high 4.0-11.0 [facility] Comment on above: Performed By: #### C BC #### [facility] [address] [place] [address] Dr. Debby Mota CBC AUTO DIFFon 01-20-2023 BASO # 0.1 103/ul Normal 0.0-0.1 [facility] Comment on above: Performed By: #### U MICRO, UACSIND #### [facility] [address] [place] [address] Dr. Debby Mota Basophils/100 WBC (Bld) 0.5 % Normal 0.2-2.0 [facility] Comment on above: Performed By: #### U MICRO, UACSIND #### [facility] [address] [place] [address] Dr. Debby Mota EO # 0.1 103/ul Normal 0.0-0.7 [facility] Comment on above: Performed By: #### U MICRO, UACSIND #### [facility] [address] [place] [address] Dr. Debby Mota Eosinophils/100 WBC (Bld) 0.4 % Critically low 0.9-7.0 [facility] Comment on above: Performed By: #### U MICRO, UACSIND #### [facility] [address] [place] [address] Dr. Debby Mota Erythrocyte distribution width (RBC) [Ratio] 15.6 % Critically high 11.0-15.0 [facility] Comment on above: Performed By: #### U MICRO, UACSIND #### [facility] [address] [place] [address] Dr. Debby Mota Hematocrit (Bld) [Volume fraction] 33.9 % Critically low 36.0-48.0 [facility] Comment on above: Performed By: #### U MICRO, UACSIND #### [facility] [address] [address] [address] Debby Mota Hemoglobin (Bld) [Mass/Vol] 11.0 g/dL Critically low 12.0-16.0 [facility] Comment on above: Performed By: #### U MICRO, UACSIND #### [facility] [address] [address] [address] Debby Mota IG # 0.29 10e3/ul Critically high 0.00-0.[address] [facility] Comment on above: Performed By: #### U MICRO, UACSIND #### [facility] [address] [place] [address] Dr. Debby Mota IG % 2.0 % Critically high 0.0-0.5 [facility] Comment on above: Performed By: #### U MICRO, UACSIND #### [facility] [address] [place] [address] Dr. Debby Mota LYMPH # 1.8 103/ul Normal 1.2-3.8 [facility] Comment on above: Performed By: #### U MICRO, UACSIND #### [facility] [address] [place] [address] Dr. Debby Mota Lymphocytes/100 WBC (Bld) 12.5 % Critically low 20.5-60.0 [facility] Comment on above: Performed By: #### U MICRO, UACSIND #### [facility] [address] [place] [address] Dr. Debby Mota MANUAL DIFF REQ NO Normal [facility] Comment on above: Performed By: #### U MICRO, UACSIND #### [facility] [address] [place] [address] Dr. Debby Mota MCH (RBC) [Entitic mass] 25.3 pg Critically low 26.7-34.0 [facility] Comment on above: Performed By: #### U MICRO, UACSIND #### [facility] [address] [place] [address] Dr. Debby Mota MCHC (RBC) [Mass/Vol] 32.4 g/dL Normal 29.9-35.2 [facility] Comment on above: Performed By: #### U MICRO, UACSIND #### [facility] [address] [address] [address] Debyb Mota MCV (RBC) [Entitic vol] 78.1 fL Critically low 81.0-99. 0 [facility] Comment on above: Performed By: #### U MICRO, UACSIND #### [facility] [address] [place] [address] Dr. Debby Mota MONO # 0.7 103/ul Normal 0.3-0.8 [facility] Comment on above: Performed By: #### U MICRO, UACSIND #### [facility] [address] [place] [address] Dr. Debby Mota Monocytes/100 WBC (Bld) 4.8 % Normal 1.7-12.0 [facility] Comment on above: Performed By: #### U MICRO, UACSIND #### [facility] [address] [place] [address] Dr. Debby Mota NEUT # 11.4 103/ul Critically high 1.4-6.5 [facility] Comment on above: Performed By: #### U MICRO, UACSIND #### [facility] [address] [place] [address] Dr. Debby Mota Neutrophils/100 WBC (Bld) 79.8 % Critically high 43.0-75.0 [facility] Comment on above: Performed By: #### U MICRO, UACSIND #### [facility] [address] [place] [address] Dr. Debby Mota Platelet mean volume (Bld) [Entitic vol] 9.7 fL Normal 9.5-13.5 [facility] Comment on above: Performed By: #### U MICRO, UACSIND #### [facility] [address] [place] [address] Dr. Debby Mota PLT 282 103/ul Normal 150-450 [facility] Comment on above: Performed By: #### U MICRO, UACSIND #### [facility] [address] [address] [address] Debby Mota RBC 4.34 106/ul Normal 4.20-5.40 [facility] Comment on above: Performed By: #### U MICRO, UACSIND #### [facility] [address] [address] [address] Debby Mota WBC 14.3 103/ul Critically high 4.0-11.0 [facility] Comment on above: Performed By: #### U MICRO, UACSIND #### [facility] [address] [address] [address] Debby Mota DRUG SCREEN RAPID (URINE)on 01-20-2023 AMP Negative Normal NEGATIVE [facility] Comment on above: Performed By: #### U MICRO, UACSIND #### [facility] [address] [place] [address] Dr. Debby Mota BAR Negative Normal NEGATIVE [facility] Comment on above: Performed By: #### U MICRO, UACSIND #### [facility] [address] [address] [address] Debby Mota BUP Negative Normal NEGATIVE [facility] Comment on above: Performed By: #### U MICRO, UACSIND #### [facility] [address] [place] [address] Dr. Debby Mota BZO Negative Normal NEGATIVE [facility] Comment on above: Performed By: #### U MICRO, UACSIND #### [facility] [address] [address] [address] Debby Mota LINCOLN Negative Normal NEGATIVE [facility] Comment on above: Performed By: #### U MICRO, UACSIND #### [facility] [address] [place] [address] Dr. Debby Mota CUT-OFFS SEE BELOW Normal [facility] Comment on above: Result Comment: AMP (Amphetamine): 500ng/mL, BAR (Barbituates): 200 ng/mL, BZO (Benzodiazepines): 150 ng/mL, BUP (Buprenorphine): 10 ng/mL, LINCOLN (Cocaine): 150 ng/mL, mAMP (Methamphetamine): 500 ng/mL, MTD (Methadone): 200 ng/mL, OPI (Opiates): 100 ng/mL, OXY (Oxycodone): 100 ng/mL, PCP (Phencyclidine): 25 ng/mL, PPX (Propoxyphene): 300 ng/mL, THC (Cannabinoids): 50 ng/mL, TCA (Trycyclic Antidepressants): 300 ng/mL Performed By: #### U MICRO, UACSIND #### [facility] [address] [place] [address] Dr. Debby Mota DRUG CUT HEADER DRUG CLASS TEST SYSTEM CUT-OFF CONCENTRATIONS ARE FOLLOWS: Normal [facility] Comment on above: Performed By: #### U MICRO, UACSIND #### [facility] [address] [place] [address] Dr. Debby Mota mAMP Negative Normal NEGATIVE [facility] Comment on above: Performed By: #### U MICRO, UACSIND #### [facility] [address] [place] [address] Dr. Debby Mota MTD Negative Normal NEGATIVE [facility] Comment on above: Performed By: #### U MICRO, UACSIND #### [facility] [address] [place] [address] Dr. Debby Mota OPI Negative Normal NEGATIVE [facility] Comment on above: Performed By: #### U MICRO, UACSIND #### [facility] [address] [place] [address] Dr. Debby Mota OXY Negative Normal NEGATIVE [facility] Comment on above: Performed By: #### U MICRO, UACSIND #### [facility] [address] [place] [address] Dr. Debby Mota PCP Negative Normal NEGATIVE [facility] Comment on above: Performed By: #### U MICRO, UACSIND #### [facility] [address] [place] [address] Dr. Debby Mota PPX Negative Normal NEGATIVE [facility] Comment on above: Performed By: #### U MICRO, UACSIND #### [facility] [address] [place] [address] Dr. Debby Mota TCA Negative Normal NEGATIVE [facility] Comment on above: Performed By: #### U MICRO, UACSIND #### [facility] [address] [place] [address] Dr. Debby Mota THC Negative Normal NEGATIVE [facility] Comment on above: Performed By: #### U MICRO, UACSIND #### [facility] [address] [place] [address] Dr. Debby Mota LDHon 01-20-2023 LDH 149 U/L Normal 81-234 [facility] Comment on above: Performed By: #### U MICRO, UACSIND #### [facility] [address] [address] [address] Debby Mota PROF 14(COMP METB)on 023 Albumin [Mass/Vol] 2.2 g/dL Critically low 3.4-5.0 [facility] Comment on above: Performed By: #### U MICRO, UACSIND #### [facility] [address] [place] [address] Dr. Debby Mota Albumin/Globulin [Mass ratio] 0.5 {ratio} Normal [facility] Comment on above: Performed By: #### U MICRO, UACSIND #### [facility] [address] [place] [address] Dr. Debby Mota ALP [Catalytic activity/Vol] 107 U/L Normal 46-116 [facility] Comment on above: Performed By: #### U MICRO, UACSIND #### [facility] [address] [place] [address] Dr. Debby Mota ALT [Catalytic activity/Vol] 17 U/L Normal 14-59 [facility] Comment on above: Performed By: #### U MICRO, UACSIND #### [facility] [address] [place] [address] Dr. Debby Mota Anion gap [Moles/Vol] 12.5 mmol/L Normal [facility] Comment on above: Performed By: #### U MICRO, UACSIND #### [facility] [address] [place] [address] Dr. Debby Mota AST [Catalytic activity/Vol] 19 U/L Normal 15-37 [facility] Comment on above: Performed By: #### U MICRO, UACSIND #### [facility] [address] [address] [address] Debby Mota Bilirubin [Mass/Vol] 0.4 mg/dL Normal 0.2-1.0 [facility] Comment on above: Performed By: #### U MICRO, UACSIND #### [facility] [address] [address] [address] Debby Mota Calcium [Mass/Vol] 9.4 mg/dL Normal 8.5-10.1 [facility] Comment on above: Performed By: #### U MICRO, UACSIND #### [facility] [address] [place] [address] Dr. Debby Mota Chloride [Moles/Vol] 105 mmol/L Normal 98-107 [facility] Comment on above: Performed By: #### U MICRO, UACSIND #### [facility] [address] [place] [address] Dr. Debby Mota CO2 [Moles/Vol] 24.1 mmol/L Normal 21.0-32.0 [facility] Comment on above: Performed By: #### U MICRO, UACSIND #### [facility] [address] [place] [address] Dr. Debby Mota Creatinine [Mass/Vol] 0.52 mg/dL Critically low 0.55-1.02 [facility] Comment on above: Performed By: #### U MICRO, UACSIND #### [facility] [address] [place] [address] Dr. Debby Mota EGFR-AF QATARI >60 Normal >=60 [facility] Comment on above: Performed By: #### U MICRO, UACSIND #### [facility] [address] [place] [address] Dr. Debby Mota EGFR-NON AF QATARI >60 Normal >=60 [facility] Comment on above: Performed By: #### U MICRO, UACSIND #### [facility] [address] [address] [address] Debby Mota Globulin (S) [Mass/Vol] 4.6 g/dL Normal [facility] Comment on above: Performed By: #### U MICRO, UACSIND #### [facility] [address] [address] [address] Debby Mota Glucose [Mass/Vol] 103 mg/dL Normal 74-106 [facility] Comment on above: Performed By: #### U MICRO, UACSIND #### [facility] [address] [address] [address] Debby Mota Potassium [Moles/Vol] 3.6 mmol/L Normal 3.5-5.1 [facility] Comment on above: Performed By: #### U MICRO, UACSIND #### [facility] [address] [place] [address] Dr. Debby Mota Protein [Mass/Vol] 6.8 g/dL Normal 6.4-8.2 [facility] Comment on above: Performed By: #### U MICRO, UACSIND #### [facility] [address] [address] [address] Debby Mota Sodium [Moles/Vol] 138 mmol/L Normal 136-145 [facility] Comment on above: Performed By: #### U MICRO, UACSIND #### [facility] [address] [place] [address] Dr. Debby Mota Urea nitrogen [Mass/Vol] 5.0 mg/dL Critically low 7.0-18.0 [facility] Comment on above: Performed By: #### U MICRO, UACSIND #### [facility] [address] [address] [address] Debby Mota Urea nitrogen/Creatinine [Mass ratio] 9.6 mg/mg Normal [facility] Comment on above: Performed By: #### U MICRO, UACSIND #### [facility] [address] [address] [address] Debby Mota PROTIMEon 01-20-2023 INR Coag (PPP) [Relative time] {INR} Normal [facility] Comment on above: Performed By: #### P T, PTT #### [facility] [address] [place] [address] Dr. Debby Mota INR GUIDELINES SEE BELOW Normal [facility] Comment on above: Result Comment: GAVIN RED INR: 2.0 - 3.0 CONDITIONS NOT LISTED BELOW 2.5 - 3.5 FOR PROSTHETIC HEART VALVE REPLACEMENT 2.5 - 3.5 RECURRENT THROMBOSIS Performed By: #### P T, PTT #### [facility] [address] [place] [address] Dr. Debby Mota PT Coag (PPP) [Time] 9.8 s Normal 9.0-11.6 [facility] Comment on above: Performed By: #### P T, PTT #### [facility] [address] [place] [address] Dr. Debby Mota PTTon 01-20-2023 aPTT Coag (Bld) [Time] 27.1 s Normal 22.3-36.2 [facility] Comment on above: Performed By: #### P T, PTT #### [facility] [address] [place] [address] Dr. Debby Mota TYPE AND SCREENon 01-20-2023 TYPE AND SCREEN Negative Normal [facility] Comment on above: Performed By: #### U MICRO, UACSIND #### [facility] [address] [place] [address] Dr. Debby Mota UA (CLEAN/CATCH) SEWER CLEANER/MICRO I F IND.on 01-20-2023 Bilirubin Ql (U) Negative Normal NEGATIVE [facility] Comment on above: Performed By: #### U MICRO, UACSIND #### [facility] [address] [place] [address] Dr. Debby Mota Clarity (U) CLEAR Normal CLEAR [facility] Comment on above: Performed By: #### U MICRO, UACSIND #### [facility] [address] [place] [address] Dr. Debby Mota Color (U) LT. YELLOW Normal YELLOW [facility] Comment on above: Performed By: #### U MICRO, UACSIND #### [facility] [address] [address] [address] Debby Mota Glucose Ql (U) Negative Normal NEGATIVE [facility] Comment on above: Performed By: #### U MICRO, UACSIND #### [facility] [address] [address] [address] Debby Mota Hemoglobin Ql (U) TRACE-INTACT Abnormal NEGATIVE [facility] Comment on above: Performed By: #### U MICRO, UACSIND #### [facility] [address] [address] [address] Debby Mota Ketones Ql (U) Negative Normal NEGATIVE [facility] Comment on above: Performed By: #### U MICRO, UACSIND #### [facility] [address] [place] [address] Dr. Debby Mota LEUKOCYTES Negative Normal NEGATIVE [facility] Comment on above: Performed By: #### U MICRO, UACSIND #### [facility] [address] [place] [address] Dr. Debby Mota Nitrite Ql (U) Negative Normal NEGATIVE [facility] Comment on above: Performed By: #### U MICRO, UACSIND #### [facility] [address] [place] [address] Dr. Debby Mota pH (U) 7.0 [pH] Normal 5-9 [facility] Comment on above: Performed By: #### U MICRO, UACSIND #### [facility] [address] [place] [address] Dr. Debby Mota SPEC GRAVITY 1.010 Normal 1.005-<=1.02 5 [facility] Comment on above: Performed By: #### U MICRO, UACSIND #### [facility] [address] [place] [address] Dr. Debby Mota UA PROTEIN 30 mg/dl Abnormal NEGATIVE/ TRACE [facility] Comment on above: Performed By: #### U MICRO, UACSIND #### [facility] [address] [place] [address] Dr. Debby Mota UR MICRO IND INDICATED Normal [facility] Comment on above: Performed By: #### U MICRO, UACSIND #### [facility] [address] [address] [address] Debby Mota Urobilinogen Qn (U) 0.2 {Terrance'U}/dL Normal 0.2 - 1.0 [facility] Comment on above: Performed By: #### U MICRO, UACSIND #### [facility] [address] [place] [address] Dr. Debby Mota URIC ACID SERUMon 01-20-2023 Urate [Mass/Vol] 3.7 mg/dL Normal 2.6-6.0 [facility] Comment on above: Performed By: #### U MICRO, UACSIND #### [facility] [address] [place] [address] Dr. Debby Mota URINE MICROSCOPIC ONLYon BACTERIA NONE SEEN Normal NONE SEEN [facility] Comment on above: Performed By: #### U MICRO, UACSIND #### [facility] [address] [place] [address] Dr. Debby Mota Bacteria identified Cx Nom (U) NOT INDICATED Normal [facility] Comment on above: Performed By: #### U MICRO, UACSIND #### [facility] [address] [place] [address] Dr. Debby Mota CAST NONE SEEN Normal NONE SEEN [facility] Comment on above: Performed By: #### U MICRO, UACSIND #### [facility] [address] [place] [address] Dr. Debby Mota Crystals LM Nom (Urine sed) NONE SEEN Normal NONE SEEN [facility] Comment on above: Performed By: #### U MICRO, UACSIND #### [facility] [address] [place] [address] Dr. Debby Mota Epithelial cells LM Ql (Urine sed) FEW Abnormal NONE SEEN /RARE [facility] Comment on above: Performed By: #### U MICRO, UACSIND #### [facility] [address] [place] [address] Dr. Debby Mota MUCOUS NONE SEEN Normal NONE SEEN [facility] Comment on above: Performed By: #### U MICRO, UACSIND #### [facility] [address] [address] [address] Debby Mota RBC 0-2 Normal 0-2 [facility] Comment on above: Performed By: #### U MICRO, UACSIND #### [facility] [address] [address] [address] Debby Mota WBC 0-2 Abnormal NONE SEEN [facility] Comment on above: Performed By: #### U MICRO, UACSIND #### [facility] [address] [address] [address] Debby Mota US PREG BIOPHY W NON STRESSo n 01-12-2023 US PREG BIOPHY W NON STRESS EXAMINATION: US PREG BIOPHY W NON STRESS HISTORY: Gestational diabetes mellitus COMPARISON: Ultrasound biophysical 01/05/2023 FINDINGS: BREATHING MOVEMENTS: 2.0 GROSS BODY MOVEMENTS: 2.0 TONE: 2.0 QUALITATIVE AMNIOTIC FLUID VOLUME: 2.0 PRESENTATION: CEPHALIC HEART RATE: 157.0 bpm bpm. AMNIOTIC FLUID VOLUME: 20.2 cm GESTATIONAL AGE: 34 weeks 4 days CONCLUSION: Total biophysical profile score 8.0. Electronically authenticated by: JUAN JOSE MATIAS Date: 2023-01-12 17:02 Normal [facility] US PREG BIOPHY W NON STRESSo n 01-05-2023 US PREG BIOPHY W NON STRESS EXAMINATION: US PREG BIOPHY W NON STRESS HISTORY: Gestational diabetes mellitus COMPARISON: Ultrasound biophysical 12/29/2022 FINDINGS: BREATHING MOVEMENTS: 2.0 GROSS BODY MOVEMENTS: 2.0 TONE: 2.0 QUALITATIVE AMNIOTIC FLUID VOLUME: 2.0 PRESENTATION: CEPHALIC HEART RATE: 130.4 bpm bpm. AMNIOTIC FLUID VOLUME: 20.0 cm GESTATIONAL AGE: 33 weeks 4 days CONCLUSION: Total biophysical profile score 8.0. Electronically authenticated by: JUAN JOSE MATIAS Date: 2023-01-05 16:32 Normal [facility] B-HYDROXYBUTYRATEon 12-30-19 23 B-HYDROXYBUTYRATE 0.9 mg/dL Normal [facility] Comment on above: Result Comment: Refe rence Range: All Ages (fasting): 0.2 - 2.8 Performed By: #### B HYDROX #### [facility] [address] [address] [address] Debby Mota US PREG BIOPHY W NON STRESSo n 12-29-2022 US PREG BIOPHY W NON STRESS EXAMINATION: US PREG BIOPHY W NON STRESS HISTORY: Gestational diabetes mellitus COMPARISON: Ultrasound biophysical 12/22/2022 FINDINGS: BREATHING MOVEMENTS: 2.0 GROSS BODY MOVEMENTS: 2.0 TONE: 2.0 QUALITATIVE AMNIOTIC FLUID VOLUME: 2.0 PRESENTATION: CEPHALIC HEART RATE: 134.3 bpm bpm. AMNIOTIC FLUID VOLUME: 14.9 cm GESTATIONAL AGE: 32 weeks 4 days CONCLUSION: Total biophysical profile score 8.0. Electronically authenticated by: JUAN JOSE MATIAS Date: 2022-12-29 16:42 Normal [facility] GLYCOHEMOGLOBIN A1Con 2022 ADA RECOMMENDATION SEE BELOW Normal [facility] Comment on above: Result Comment: ADA RECOMMENDED LIMIT 4.0 - 6.0 ADA THERAPEUTIC TARGET < 7.0 ACTION SUGGESTED > 7.0 Performed By: #### A 1C #### [facility] [address] [place] [address] Dr. Debby Mota Glucose [Mass/Vol] 126 mg/dL Normal [facility] Comment on above: Performed By: #### A 1C #### [facility] [address] [address] [address] eDbby Mota HbA1c (Bld) [Mass fraction] 6.0 % Normal 4.5-6.2 [facility] Comment on above: Performed By: #### A 1C #### [facility] [address] [address] [address] Debby Mota PROF 14(COMP METB)on 023 Albumin [Mass/Vol] 2.5 g/dL Critically low 3.4-5.0 [facility] Comment on above: Performed By: #### C MP #### [facility] [address] [address] [address] Debby Mota Albumin/Globulin [Mass ratio] 0.6 {ratio} Normal [facility] Comment on above: Performed By: #### C MP #### [facility] [address] [address] [address] Debby Mota ALP [Catalytic activity/Vol] 96 U/L Normal 46-116 [facility] Comment on above: Performed By: #### C MP #### [facility] [address] [address] [address] Debby Mota ALT [Catalytic activity/Vol] 16 U/L Normal 14-59 [facility] Comment on above: Performed By: #### C MP #### [facility] [address] [address] [address] Debby Mota Anion gap [Moles/Vol] 14.2 mmol/L Normal Th [facility] Comment on above: Performed By: #### C MP #### [facility] [address] [address] [address] Debby Mota AST [Catalytic activity/Vol] 12 U/L Critically low 15-37 [facility] Comment on above: Performed By: #### C MP #### [facility] [address] [address] [address] Debby Mota Bilirubin [Mass/Vol] 0.4 mg/dL Normal 0.2-1.0 [facility] Comment on above: Performed By: #### C MP #### [facility] [address] [address] [address] Debby Mota Calcium [Mass/Vol] 9.2 mg/dL Normal 8.5-10.1 [facility] Comment on above: Performed By: #### C MP #### [facility] [address] [address] [address] Debby Mota Chloride [Moles/Vol] 102 mmol/L Normal 98-107 [facility] Comment on above: Performed By: #### C MP #### [facility] [address] [address] [address] Debby Mota CO2 [Moles/Vol] 24.3 mmol/L Normal 21.0-32.0 [facility] Comment on above: Performed By: #### C MP #### [facility] [address] [address] [address] Debby Mota Creatinine [Mass/Vol] 0.44 mg/dL Critically low 0.55-1.02 [facility] Comment on above: Performed By: #### C MP #### [facility] [address] [address] [address] Debby Mota EGFR-AF QATARI >60 Normal >=60 [facility] Comment on above: Performed By: #### C MP #### [facility] [address] [address] [address] Debby Mota EGFR-NON AF QATARI >60 Normal >=60 [facility] Comment on above: Performed By: #### C MP #### [facility] [address] [address] [address] Debby Mota Globulin (S) [Mass/Vol] 4.5 g/dL Normal [facility] Comment on above: Performed By: #### C MP #### [facility] [address] [address] [address] Debby Mota Glucose [Mass/Vol] 136 mg/dL Critically high 74-106 [facility] Comment on above: Performed By: #### C MP #### [facility] [address] [address] [address] Debby Mota Potassium [Moles/Vol] 3.5 mmol/L Normal 3.5-5.1 [facility] Comment on above: Performed By: #### C MP #### [facility] [address] [address] [address] Debby Mota Protein [Mass/Vol] 7.0 g/dL Normal 6.4-8.2 [facility] Comment on above: Performed By: #### C MP #### [facility] [address] [address] [address] Debby Mota Sodium [Moles/Vol] 137 mmol/L Normal 136-145 [facility] Comment on above: Performed By: #### C MP #### [facility] [address] [address] [address] Debby Mota Urea nitrogen [Mass/Vol] 3.0 mg/dL Critically low 7.0-18.0 [facility] Comment on above: Performed By: #### C MP #### [facility] [address] [address] [address] Debby Mota Urea nitrogen/Creatinine [Mass ratio] 6.8 mg/mg Normal [facility] Comment on above: Performed By: #### C MP #### [facility] [address] [place] [address] Dr. Debby Mota URINE T PROTEIN CREAT RATIOo n 12-25-2022 Protein (U) [Mass/Vol] 16.6 mg/dL Critically high <=12.0 [facility] Comment on above: Performed By: #### U RTPCR #### [facility] [address] [place] [address] Dr. Debby Mota UR PROT CREAT RAT 0.[address] [facility] Comment on above: Performed By: #### U RTPCR #### [facility] [address] [place] [address] Dr. Debby Mota URINE CREAT 51.76 mg/dL Normal 20.00-300.00 [facility] Comment on above: Performed By: #### U RTPCR #### [facility] [address] [place] [address] Dr. Debby Mota US PREG BIOPHY W NON STRESSo n 12-23-2022 US PREG BIOPHY W NON STRESS EXAMINATION: US PREG BIOPHY W NON STRESS HISTORY: Gestational diabetes mellitus COMPARISON: No relevant comparison available. TECHNIQUE: Ultrasound biophysical profile was performed in the radiology department. non-reactive stress testing was performed by nursing staff in the birthing center. FINDINGS: BREATHING MOVEMENTS: 2.0 GROSS BODY MOVEMENTS: 2.0 TONE: 2.0 QUALITATIVE AMNIOTIC FLUID VOLUME: 2.0 PRESENTATION: TRANS RT HEART RATE: 137.1 bpm H.B./min AMNIOTIC FLUID VOLUME: 15.5 cm cm GESTATIONAL AGE: 31 weeks 4 days CONCLUSION: Total biophysical profile score: 8.0 Electronically authenticated by: ELVIN DELGADILLO Date: 2022-12-23 07:46 Normal [facility] US PREG BIOPHY W NON STRESSo n 12-15-2022 US PREG BIOPHY W NON STRESS EXAMINATION: US PREG BIOPHY W NON STRESS HISTORY: Gestational diabetes mellitus COMPARISON: Ultrasound biophysical 12/08/2022 FINDINGS: BREATHING MOVEMENTS: 2 GROSS BODY MOVEMENTS: 2 TONE: 2 QUALITATIVE AMNIOTIC FLUID VOLUME: 2 PRESENTATION: CEPHALIC HEART RATE: 146.7 bpm bpm. AMNIOTIC FLUID VOLUME: 23.1 cm GESTATIONAL AGE: 30 weeks 4 days CONCLUSION: Total biophysical profile score 8. Electronically authenticated by: JUAN JOSE MATIAS Date: 2022-12-15 21:43 Normal [facility] US PREG BIOPHY W NON STRESSo n 12-08-2022 US PREG BIOPHY W NON STRESS EXAMINATION: US PREG BIOPHY W NON STRESS HISTORY: Gestational diabetes mellitus COMPARISON: No relevant comparison available. FINDINGS: BREATHING MOVEMENTS: 2.0 GROSS BODY MOVEMENTS: 2.0 TONE: 2.0 QUALITATIVE AMNIOTIC FLUID VOLUME: 2.0 PRESENTATION: BREECH HEART RATE: 147.5 bpm bpm. AMNIOTIC FLUID VOLUME: 12.0 cm GESTATIONAL AGE: 29 weeks 4 days CONCLUSION: Total biophysical profile score 8.0. Electronically authenticated by: JUAN JOSE MATIAS Date: 2022-12-08 21:41 Normal [facility] US PREG PLACENTAon US PREG PLACENTA EXAM: US PREG PLACENTA HISTORY: Placental abruption patient: Abdomen 20 minutes ago. Clinical gestational age 17 weeks 6 days. COMPARISON: None. TECHNIQUE: Transabdominal obstetrical ultrasound FINDINGS: There is a single viable intrauterine fetus in transverse position. heart rate of 153 bpm. The placenta is posterior in location and is homogeneous in appearance. There is no intraplacental or retroplacental fluid. Amniotic fluid volume is grossly within normal limits on visual inspection. IMPRESSION: 1. Single viable intrauterine fetus in transverse position with heart rate of 153 bpm. 2. Posterior placenta that is normal in ultrasound appearance. Placenta is homogeneous without intraplacental or retroplacental fluid to reflect placental hemorrhage/abrupt ion. Recommend followup imaging if symptoms worsen or persist. Electronically authenticated by: ARACELIS HO Date: 2022-09-17 14:25 Normal [facility] XR WRIST LT MIN 3 Von 2021 XR WRIST LT MIN 3 V EXAM: XR WRIST LT MIN 3 V HISTORY: Pain COMPARISON: None. TECHNIQUE: 3 views FINDINGS: No osseous lesion, fracture, dislocation or subluxation. Joint spaces are normal. No visualized effusion. No visualized soft tissue edema. IMPRESSION: Normal x-rays Electronically authenticated by: ELVIN GUNN Date: 2022-09-17 15:15 Normal [facility] Basophils Auto (Bld) [#/Vol] Ordered By: Leeroy Collazo on 07-31-2022 Basophils (Bld) [#/Vol] 0.0 10*3/uL 0.0-0.2 [facility] Basophils/100 WBC Auto (Bld) Ordered By: Leeroy Collazo on 07-31-2022 Basophils/100 WBC (Bld) 0.5 % . [facility] Bilirubin Test strip Ql (U)O rdered By: Leeroy Collazo on 07-31-2022 Bilirubin Ql (U) Negative Negative [facility] Color Auto (U)Ordered By: Cristhian Collazo on 07-31-2022 Color (U) Yellow Yellow [facility] Creatinine and Glomerular fi ltration rate.predicted panel (S/P/Bld)Ordered By: Leeroy Collazo on 07-31-2022 Creatinine [Mass/Vol] 0.54 mg/dL 0.44-1.03 [facility] Eosinophils Auto (Bld) [#/Vo l]Ordered By: Leeroy Collazo on 07-31-2022 Eosinophils (Bld) [#/Vol] 0.1 10*3/uL 0.0-0.45 [facility] Eosinophils/100 WBC Auto (Bl d)Ordered By: Leeroy Collazo on 07-31-2022 Eosinophils/100 WBC (Bld) 0.9 % . [facility] Erythrocyte distribution wid th Auto (RBC) [Ratio]Ordered By: Leeroy Collazo on 07-31-2022 Erythrocyte distribution width (RBC) [Ratio] 18.9 % 11.9-15.3 [facility] Estimated glomerular filtrat ion rate (GFR) non- AmericanOrdered By: Leeroy Collazo on 07-31-2022 GFR/1.73 sq M.predicted among non-blacks MDRD (S/P/Bld) [Vol rate/Area] > 60 mL/Min [facility] Hematocrit Auto (Bld) [Volum e fraction]Ordered By: Leeroy Collazo on 07-31-2022 Hematocrit (Bld) [Volume fraction] 38.6 % 34.0-46.4 [facility] Hemoglobin [Mass/volume] in BloodOrdered By: Leeroy Collazo on 07-31-2022 Hemoglobin (Bld) [Mass/Vol] 12.6 g/dL 11.8-15.4 [facility] Ketones Auto test strip (U) [Mass/Vol]Ordered By: Leeroy Collazo on 07-31-2022 Ketones (U) [Mass/Vol] Negative Negative [facility] - Hematology and Cell countsOrdered By: Leeroy Collazo on 07-31-2022 Nucleated RBC/100 WBC (Bld) [Ratio] 0.0 % 0-0.5 [facility] Leukocytes [#/volume] in Blo od by Automated countOrdered By: Leeroy Collazo on 07-31-2022 WBC (Bld) [#/Vol] 9.3 10*3/uL 4.5-11.0 [facility] Lymphocytes Auto (Bld) [#/Vo l]Ordered By: Leeroy Collazo on 07-31-2022 Lymphocytes (Bld) [#/Vol] 2.3 10*3/uL 1.00-4.8 [facility] Lymphocytes/100 WBC Auto (Bl d)Ordered By: Leeroy Collazo on 07-31-2022 Lymphocytes/100 WBC (Bld) 24.3 % . [facility] MCH Auto (RBC) [Entitic mass ]Ordered By: Leeroy Collazo on 07-31-2022 MCH (RBC) [Entitic mass] 26.5 pg 24.7-34.3 [facility] MCHC Auto (RBC) [Mass/Vol]Or dered By: Leeroy Collazo on 07-31-2022 MCHC (RBC) [Mass/Vol] 32.5 g/dL 32.0-35.0 [facility] MCV Auto (RBC) [Entitic vol] Ordered By: Leeroy Collazo on 07-31-2022 MCV (RBC) [Entitic vol] 81.7 fL 80-100 [facility] Monocytes Auto (Bld) [#/Vol] Ordered By: Leeroy Collazo on 07-31-2022 Monocytes (Bld) [#/Vol] 0.4 10*3/uL 0.0-0.8 [facility] Monocytes/100 WBC Auto (Bld) Ordered By: Leeroy Collazo on 07-31-2022 Monocytes/100 WBC (Bld) 4.1 % . [facility] Neutrophils Auto (Bld) [#/Vo l]Ordered By: Leeroy Collazo on 07-31-2022 Neutrophils (Bld) [#/Vol] 6.5 10*3/uL 1.8-7.7 [facility] Neutrophils/100 WBC Auto (Bl d)Ordered By: Leeory Collazo on 07-31-2022 Neutrophils/100 WBC (Bld) 70.2 % . [facility] Nitrite Test strip Ql (U)Ord ered By: Leeroy Collazo on 07-31-2022 Nitrite Ql (U) Negative Negative [facility] No Panel InformationOrdered By: Leeroy Collazo on 07-31-2022 Estimated GFR () > 60 mL/Min [facility] Comment on above: GFR estimated refere nce range: According to KDOQI guidelines, <60 ml/min/1.73m2 is sufficient to diagnose a patient with chronic kidney disease. Pharmacy Creatinine Clearance (Chem 210.08 [facility] Platelet mean volume Auto (B ld) [Entitic vol]Ordered By: Leeroy Collazo on 07-31-2022 Platelet mean volume (Bld) [Entitic vol] 7.5 fL 6.3-10.7 [facility] Platelets Auto (Bld) [#/Vol] Ordered By: Leeroy Collazo on 07-31-2022 Platelets (Bld) [#/Vol] 274 10*3/uL 150-450 [facility] Protein Auto test strip (U) [Mass/Vol]Ordered By: Leeroy Collazo on 07-31-2022 Protein (U) [Mass/Vol] Negative Negative [facility] RBC Auto (Bld) [#/Vol]Ordere d By: Leeroy Collazo on 07-31-2022 RBC (Bld) [#/Vol] 4.73 10*6/uL 3.60-5.00 [facility] Serum or plasma anion gap de terminationOrdered By: Leeroy Collazo on 11-11-2022 Anion gap [Moles/Vol] 10.2 mmol/L 6.0-15.0 [facility] Serum or plasma beta choriog onadotropin measurement (units/volume)Ordered By: Leeroy Collazo on 07-31-2022 [place] [address].00 m[IU]/mL [facility] Comment on above: Approximate Approxim ate hCG Gestational Age Range (mIU/ml) (weeks)0.2-1 5-50 1-2 50-500 2-3 100-5,000 3-4 500-10,000 4-5 1,000-50,000 5-6 10,000-100,000 6-8 15,000-200,000 8-12 10,000-100,000 Serum or plasma calcium harley urement (mass/volume)Ordered By: Leeroy Collazo on 07-31-2022 Calcium [Mass/Vol] 9.2 mg/dL 8.2-10.2 [facility] Serum or plasma chloride dominga surement (moles/volume)Ordered By: Leeroy Collazo on 07-31-2022 Chloride [Moles/Vol] 104 mmol/L 95-114 [facility] Serum or plasma glucose harley urement (mass/volume)Ordered By: Leeroy Collazo on 07-31-2022 Glucose [Mass/Vol] 148 mg/dL 70-100 [facility] Comment on above: ADA recommended refe rence rangeRandom Glucose Reference Range is dependent on time and content of last meal. Glucose of more than 200 mg/dL in a nonstressed, ambulatory subject supports the diagnosis of Diabetes Mellitus. Serum or plasma potassium me asurement (moles/volume)Ordered By: Leeroy Collazo on 07-31-2022 Potassium [Moles/Vol] 3.6 mmol/L 3.5-5.1 [facility] Serum or plasma sodium measu rement (moles/volume)Ordered By: Leeroy Collazo on 07-31-2022 Sodium [Moles/Vol] 134 mmol/L 136-146 [facility] Serum or plasma total carbon dioxide measurement (moles/volume)Ordered By: Leeroy Collazo on 07-31-2022 CO2 [Moles/Vol] 23.4 mmol/L 22.0-30.0 [facility] Serum or plasma urea nitroge n measurement (mass/volume)Ordered By: Leeroy Collazo on 07-31-2022 Urea nitrogen [Mass/Vol] 5 mg/dL 06-12 [facility] Specific gravity Auto test s trip (U) [Rel density]Ordered By: Leeroy Collazo on 07-31-2022 Specific gravity (U) [Rel density] 1.014 1.001-1.030 [facility] Urine clarity by refractomet ry automatedOrdered By: Leeroy Collazo on 07-31-2022 Clarity Refractometry automated (U) Clear Clear [facility] Urine glucose measurement by automated test strip (mass/volume)Ordered By: Leeroy Collazo on 07-31-2022 Glucose Auto test strip (U) [Mass/Vol] Normal mg/dL Normal [facility] Urine hemoglobin detection b y automated test stripOrdered By: Leeroy Collazo on 07-31-2022 Hemoglobin Auto test strip Ql (U) Negative Negative [facility] Urine leukocyte esterase det ection by automated test stripOrdered By: Leeroy Collazo on 07-31-2022 Leukocyte esterase Auto test strip Ql (U) Negative Negative [facility] Urobilinogen Auto test strip (U) [Mass/Vol]Ordered By: Leeroy Collazo on 07-31-2022 Urobilinogen (U) [Mass/Vol] Normal mg/dL Normal [facility] pH Auto test strip (U)Ordere d By: Leeroy Collazo on 07-31-2022 pH (U) 5.5 [pH] 5.0-9.0 [facility] Basophils Auto (Bld) [#/Vol] Ordered By: RENATO Black on 07-07-2022 Basophils (Bld) [#/Vol] 0.1 10*3/uL 0.0-0.2 [facility] Basophils/100 WBC Auto (Bld) Ordered By: RENATO Black on 07-07-2022 Basophils/100 WBC (Bld) 0.9 % . [facility] Eosinophils Auto (Bld) [#/Vo l]Ordered By: RENATO Black on 07-07-2022 Eosinophils (Bld) [#/Vol] 0.1 10*3/uL 0.0-0.45 [facility] Eosinophils/100 WBC Auto (Bl d)Ordered By: RENATO Black on 07-07-2022 Eosinophils/100 WBC (Bld) 0.8 % . [facility] Erythrocyte distribution wid th Auto (RBC) [Ratio]Ordered By: RENATO Black on 07-07-2022 Erythrocyte distribution width (RBC) [Ratio] 18.4 % 11.9-15.3 [facility] Hematocrit Auto (Bld) [Volum e fraction]Ordered By: RENATO Black on 07-07-2022 Hematocrit (Bld) [Volume fraction] 40.4 % 34.0-46.4 [facility] Hemoglobin [Mass/volume] in BloodOrdered By: RENATO Black on 07-07-2022 Hemoglobin (Bld) [Mass/Vol] 12.8 g/dL 11.8-15.4 [facility] Laboratory - Hematology and Cell countsOrdered By: RENATO Black on 07-07-2022 Nucleated RBC/100 WBC (Bld) [Ratio] 0.1 % 0-0.5 [facility] Leukocytes [#/volume] in Blo od by Automated countOrdered By: RENATO Black on 07-07-2022 WBC (Bld) [#/Vol] 7.4 10*3/uL 4.5-11.0 [facility] Lymphocytes Auto (Bld) [#/Vo l]Ordered By: RENATO Black on 07-07-2022 Lymphocytes (Bld) [#/Vol] 2.1 10*3/uL 1.00-4.8 [facility] Lymphocytes/100 WBC Auto (Bl d)Ordered By: RENATO Black on 07-07-2022 Lymphocytes/100 WBC (Bld) 27.6 % . [facility] MCH Auto (RBC) [Entitic mass ]Ordered By: RENATO Black on 07-07-2022 MCH (RBC) [Entitic mass] 25.4 pg 24.7-34.3 [facility] MCHC Auto (RBC) [Mass/Vol]Or dered By: RENATO Black on 07-07-2022 MCHC (RBC) [Mass/Vol] 31.6 g/dL 32.0-35.0 [facility] MCV Auto (RBC) [Entitic vol] Ordered By: RENAOT Black on 07-07-2022 MCV (RBC) [Entitic vol] 80.5 fL 80-100 [facility] Monocytes Auto (Bld) [#/Vol] Ordered By: RENATO Black on 07-07-2022 Monocytes (Bld) [#/Vol] 0.3 10*3/uL 0.0-0.8 [facility] Monocytes/100 WBC Auto (Bld) Ordered By: RENATO Black on 07-07-2022 Monocytes/100 WBC (Bld) 4.4 % . [facility] Neutrophils Auto (Bld) [#/Vo l]Ordered By: RENATO Black on 07-07-2022 Neutrophils (Bld) [#/Vol] 4.9 10*3/uL 1.8-7.7 [facility] Neutrophils/100 WBC Auto (Bl d)Ordered By: RENATO Black on 07-07-2022 Neutrophils/100 WBC (Bld) 66.3 % . [facility] Platelet mean volume Auto (B ld) [Entitic vol]Ordered By: RENATO Black on 07-07-2022 Platelet mean volume (Bld) [Entitic vol] 7.4 fL 6.3-10.7 [facility] Platelets Auto (Bld) [#/Vol] Ordered By: RENATO Black on 07-07-2022 Platelets (Bld) [#/Vol] 291 10*3/uL 150-450 [facility] RBC Auto (Bld) [#/Vol]Ordere d By: RENATO Black on 07-07-2022 RBC (Bld) [#/Vol] 5.02 10*6/uL 3.60-5.00 [facility] Serum or plasma beta choriog onadotropin measurement (units/volume)Ordered By: RENATO Black on 06-19-2022 HCG.beta subunit Qn 412.41 m[IU]/mL [facility] Comment on above: Approximate Approxim ate hCG Gestational Age Range (mIU/ml) (weeks)0.2-1 5-50 1-2 50-500 2-3 100-5,000 3-4 500-10,000 4-5 1,000-50,000 5-6 10,000-100,000 6-8 15,000-200,000 8-12 10,000-100,000 Serum or plasma beta choriog onadotropin measurement (units/volume)Ordered By: RNEATO Black on 06-17-2022 HCG.beta subunit Qn 199.16 m[IU]/mL [facility] Comment on above: Approximate Approxim ate hCG Gestational Age Range (mIU/ml) (weeks)0.2-1 5-50 1-2 50-500 2-3 100-5,000 3-4 500-10,000 4-5 1,000-50,000 5-6 10,000-100,000 6-8 15,000-200,000 8-12 10,000-100,000 Serum or plasma beta choriog onadotropin measurement (units/volume)Ordered By: RENATO Black on 06-15-2022 HCG.beta subunit Qn 89.92 m[IU]/mL [facility] Comment on above: Approximate Approxim ate hCG Gestational Age Range (mIU/ml) (weeks)0.2-1 5-50 1-2 50-500 2-3 100-5,000 3-4 500-10,000 4-5 1,000-50,000 5-6 10,000-100,000 6-8 15,000-200,000 8-12 10,000-100,000 Coding Summary.on 03-08-2018 Coding Summary. CODING DATE: 03/08/2018 FINAL [facility] STATUS: PAYOR: Self Pay ADMIT DX: REASON FOR VISIT DX: Z01.419 Encounter for gynecological examination (general) (routine) without abnormal findings FINAL DX: PRINCIPAL: Z01.419 Encounter for gynecological examination (general) (routine) without abnormal findings SECONDARY: PROCEDURES DOCTOR NAME DATE NOTE: The code number assigned matches the documented diagnosis and / or procedure in the patient's chart. However, the narrative phrase printed from the coding software may appear abbreviated, or result in slightly different terminology. Coded By: Genet Landon Date Saved: 03/08/2018 12:01 pm [facility] Coding Summary.on 11-03-2017 Coding Summary. CODING DATE: 11/03/2017 [facility] STATUS: Home (Routine DC) PAYOR: Self Pay ADMIT DX: REASON FOR VISIT DX: Z01.419 Encounter for gynecological examination (general) (routine) without abnormal findings FINAL DX: PRINCIPAL: Z01.419 Encounter for gynecological examination (general) (routine) without abnormal findings SECONDARY: PROCEDURES DOCTOR NAME DATE NOTE: The code number assigned matches the documented diagnosis and / or procedure in the patient's chart. However, the narrative phrase printed from the coding software may appear abbreviated, or result in slightly different terminology. Coded By: Genet Landon Date Saved: 11/03/2017 12:30 pm [facility] Vital Signs Date Time Vital Sign Value Performing Clinician Brad valenzuela 11-08-2023 14:16-0500 Body height 171 cm Femi Garcia APRN-PRESTON Work Phone: [facility] 11-08-2023 14:16-0500 Body mass index (BMI) [Ratio] 39.56 kg/m2 Femi Garcia APRN-DISBURSEMENT CLERK Work Phone: [facility] 11-08-2023 14:16-0500 Body weight 115.67 kg Femi Garcia APRN-DISBURSEMENT CLERK Work Phone: [facility] 11-08-2023 14:16-0500 Diastolic blood pressure 77 mm[Hg] Femi Garcia APRN-DISBURSEMENT CLERK Work Phone: [facility] 11-08-2023 14:16-0500 Heart rate 80 /min Femi Garcia APRN-DISBURSEMENT CLERK Work Phone: [facility] 11-08-2023 14:16-0500 Systolic blood pressure 143 mm[Hg] Femi Garcia ON AWAKE COUNSELOR-DISBURSEMENT CLERK Work Phone: [facility] 10-15-2023 08:34-0500 Body height 171.5 cm Pmh 1 [facility] 10-15-2023 08:34-0500 Body mass index (BMI) [Ratio] 38.27 kg/m2 Pmh 1 [facility] 10-15-2023 08:34-0500 Body weight 112.49 kg Pmh 1 [facility] 10-12-2023 10:57-0500 Body height 170.2 cm Isabel Medeiros MD Work Phone: [facility] 10-12-2023 10:57-0500 Body mass index (BMI) [Ratio] 39.94 kg/m2 Isabel Medeiros MD Work Phone: [facility] 10-12-2023 10:57-0500 Body weight 115.67 kg Isabel Medeiros MD Work Phone: [facility] 07-31-2022 11:30-0500 Diastolic blood pressure 88 mm[Hg] MD Lisa Moe Work Phone: [facility] 07-31-2022 11:30-0500 Heart rate 86 /min MD Lisa Moe Work Phone: [facility] 07-31-2022 11:30-0500 Respiratory rate 20 /min MD Lisa Moe Work Phone: [facility] 07-31-2022 11:30-0500 SaO2% (BldA) [Mass fraction] 98 % MD iLsa Moe Work Phone: [facility] 07-31-2022 11:30-0500 Systolic blood pressure 148 mm[Hg] MD Lisa Moe Work Phone: [facility] 07-31-2022 09:37-0500 Body height 170.18 cm MD Lisa Moe Work Phone: [facility] 07-31-2022 09:37-0500 Body temperature 97.8 [degF] MD Lisa Moe Work Phone: [facility] 07-31-2022 09:37-0500 Body weight 128 kg MD Lisa Moe Work Phone: [facility] 07-14-2022 10:39-0400 Body temperature 98 [degF] MD Lisa Moe Work Phone: [facility] 07-14-2022 10:39-0400 Body weight 129.22 kg MD Lisa Moe Work Phone: [facility] 07-14-2022 10:39-0400 Diastolic blood pressure 79 mm[Hg] MD Lisa Moe Work Phone: [facility] 07-14-2022 10:39-0400 Heart rate 86 /min MD Lisa Moe Work Phone: [facility] 07-14-2022 10:39-0400 Respiratory rate 20 /min MD Lisa Moe Work Phone: [facility] 07-14-2022 10:39-0400 SaO2% (BldA) [Mass fraction] 97 % MD Lisa Moe Work Phone: [facility] 07-14-2022 10:39-0400 Systolic blood pressure 131 mm[Hg] MD Lisa Moe Work Phone: [facility] 07-14-2022 10:31-0400 Body height 170.18 cm MD Lisa Moe Work Phone: [facility] 07-07-2022 10:51-0400 Diastolic blood pressure 77 mm[Hg] MD Lisa Moe Work Phone: [facility] 07-07-2022 10:51-0400 Heart rate 68 /min MD Lisa Moe Work Phone: [facility] 07-07-2022 10:51-0400 Systolic blood pressure 120 mm[Hg] MD Lisa Moe Work Phone: [facility] 07-07-2022 08:37-0400 Body temperature 97.1 [degF] MD Lisa Moe Work Phone: [facility] 07-07-2022 08:37-0400 Respiratory rate 18 /min MD Lisa Moe Work Phone: [facility] 07-07-2022 08:37-0400 SaO2% (BldA) [Mass fraction] 97 % MD Lisa Moe Work Phone: [facility] Encounters Encounter Date Encounter Type Care Provider Facility Start: 11-08-2023 End: 11-08-2023 ambulatory [facility] Start: 11-08-2023 End: 11-08-2023 Postop follow up visit related to original px [facility] ON AWAKE COUNSELOR-DISBURSEMENT CLERK Work Phone: [facility] Comment on above: Status post laparosc opic cholecystectomy (Primary Dx) Start: 10-25-2023 End: 10-25-2023 Evaluation and management of inpatient [place] Start: 10-25-2023 End: 10-25-2023 Evaluation and management of inpatient [facility] Start: 10-15-2023 End: 10-16-2023 ambulatory ELVIN VALENTE [facility] Start: 10-15-2023 Encounter for other preprocedural examination [facility] Start: 10-15-2023 End: 10-15-2023 Patient encounter procedure [facility] Pre-Admission Testing 1 [facility] - Pre Admit Comment on above: Preop examination (P rimary Dx); Type 2 diabetes mellitus without complication, without long-term current use of insulin ([facility]) Start: 10-15-2023 End: 10-15-2023 Preprocedural examination done P[facility] 1 [facility] Start: 10-12-2023 End: 10-12-2023 ambulatory [facility] Start: 10-12-2023 End: 10-12-2023 Office outpatient new 45 minutes Isabel Medeiros MD Work Phone: [facility] Comment on above: Biliary colic (Prima ry Dx) Start: 10-06-2023 ambulatory [facility] Start: 10-05-2023 ambulatory [facility] Start: 02-09-[address] AMAN CHURCH . Facili ty:[facility] Start: 02-02-[address] LISA MOE Facility: [facility] Start: 01-26-[address] LISA MOE Facility: [facility] Start: 01-20-2023 End: 01-22-2023 Evaluation and management of inpatient DR AMAN CHURCH . Facility:[facility] Start: 01-19-[address] LISA MOE Facility: [facility] Start: 01-14-[address] AMAN CHURCH . Facili ty:[facility] Start: 01-12-2023 End: 01-12-[address] AMAN CHURCH . Facility:[facility] Start: 01-08-2023 End: 01-08-[address] MANSOOR MIRANDA . Facility:[facility] Start: 01-05-2023 End: 01-05-[address] LISA MOE Facility:[facility] Start: 01-01-2023 End: 01-01-[address] LISA MOE Facility:[facility] Start: 12-29-2022 End: 12-29-[address] MANSOOR MIRANDA . Facility:[facility] Start: 12-25-2022 End: 12-26-[address] LISA MOE Facility:[facility] Start: 12-22-2022 End: 12-22-[address] AMAN CHURCH . Facility:[facility] Start: 12-15-2022 End: 12-15-[address] LISA MOE Facility:[facility] Start: 12-08-2022 End: 12-08-[address] LISA MOE Facility:[facility] Start: 09-17-2022 End: 09-17-[address] LISA MOE Facility:[facility] Start: 09-02-2022 End: 09-02-[address] LISA MOE Facility:[facility] Start: 07-31-2022 End: 07-31-2022 Emergency department patient visit Leeroy Iraheta Vale Facility:[facility] Start: 07-31-2022 End: 07-31-2022 Emergency department patient visit MD Lisa Moe Work Phone: [facility]Emergency [facility] Start: 07-14-2022 Registered Recurring MD Lisa Moe Work Phone: [facility] Start: 07-07-2022 End: 07-07-2022 ambulatory MD Lisa Moe Work Phone: [facility] Work Phone: Start: 07-07-2022 End: 07-07-2022 Discharged Recurring MD Lisa Moe Work Phone: [facility]-Infusion Therapy - O/P Start: 06-19-2022 End: 06-19-2022 Patient encounter procedure MD Lisa Moe Work Phone: [facility] Start: 06-17-2022 End: 06-17-2022 Patient encounter procedure MD Lisa Moe Work Phone: [facility] Start: 06-15-2022 End: 06-15-2022 Patient encounter procedure MD Lisa Moe Work Phone: [facility] Start: 10-27-2017 End: 10-28-2017 Patient encounter Abbi Martin Facility:[facility] Start: 10-27-2017 End: 10-27-2017 Patient encounter Abbi Martin Facility:[facility] Procedures Date Procedure Procedure Detail Performing Clinician Start: 08-21-2022 Microalbumin [Mass/volume] in Urine by Test strip Isabel Medeiros MD Work Phone: Start: 07-31-2022 Diagnostic ultrasound of gravid uterus MD Lisa Moe Work Phone: History of cholecystectomy Status post laparoscopic cholecystectomy Femi Garcia ON AWAKE COUNSELOR-DISBURSEMENT CLERK Work Phone: Plan of Treatment Date Care Activity Detail Author Start: 11-08-2024 Adult BMI Screening Adult BMI Screen ing [facility] Start: 11-08-2024 Tobacco Screening Tobacco Screening [facility] Start: 10-15-2024 Adult BMI Screening Adult BMI Screen ing [facility] Start: 10-15-2024 Tobacco Screening Tobacco Screening [facility] Start: 10-12-2024 Adult BMI Screening Adult BMI Screen ing [facility] Start: 10-12-2024 Tobacco Screening Tobacco Screening [facility] Start: 11-09-2023 End: 11-09-2023 Patient encounter procedure 11/09/2023 10:30 AM EST Office Visit [facility] General Surgery [address] [place] [id number] Femi Garcia, [facility] [address] [place], [place] [id number] [facility] General Surgery Start: 10-25-2023 End: 10-25-2023 Admission to same day surgery center 10/25/2023 9:30 AM EST - 10/25/2023 11:15 AM EST Surgery [facility] - Surgery [address] [place] [phone] Isabel Medeiros MD [address] [place] [phone] DAVINCI CHOLECYSTECTOMY [17102 (CPT )] [facility] - Surgery Comment on above: DAVINCI CHOLECYSTECT SUN [19605 (CPT )] Start: 10-25-2023 End: 10-25-2023 Laparoscopy surg cholecystectomy DAVINCI CHOLECYSTECTOMY biliary colic 10/25/2023 9:30 AM EST [facility] Start: 10-25-2023 Subsequent hospital visit by physician 10/25/2023 9:30 AM EST Hospital Encounter [facility] - Surgery [address] [place] [address] Isabel Medeiros MD [address] [facility] [place] [phone] [facility] - Surgery Start: 10-15-2023 End: 10-15-2023 Patient encounter procedure 10/15/2023 8:15 AM EST Procedure visit [facility] - Pre Admit [address] [place] [address] [facility] - Pre Admit Start: 08-21-2023 Urine screening for protein Urine Microalbumin [facility] Start: 05-21-2023 COVID-19 Vaccine ( season) COVID-19 Vaccine () [facility] Start: 05-21-2023 Influenza vaccination Influenza Vacc ine [facility] Start: 07-14-2022 [facility] Start: 2011 Screening for malign ant neoplasm of cervix Pap Smear [facility] Start: 2008 Adult BMI Follow Up Plan Adult BMI F ollow Up Plan [facility] Start: 2008 Diabetic foot examination Diabetic F oot Exam [facility] Start: 2002 Depression Screening Depression Scre ening [facility] Start: 2001 DTaP,Tdap and Td Vac cines (6 - Tdap) DTaP,Tdap and Td Vaccines (6 - Tdap) [facility] Start: 1990 Glaucoma screening Diabetic Op hthalmology Exam [facility] Comprehensive metabo lic 1999 panel - Serum or Plasma [facility] Ferritin [Mass/volum e] in Serum or Plasma [facility] Patient Education Bleeding in Ea rly ED [facility] Work Phone: Patient referral [facility] Work Phone: Thyrotropin [Units/volume] in Serum or Plasma [facility] End: 10-11-2024 Unlisted Procedure / Surgery Unlisted Procedure / Surgery Procedures Routine Biliary colic 1 Occurrences starting 10/12/2023 until 10/11/2024 [facility] Work Phone: Comment on above: 1 Occurrences starti ng 10/12/2023 until 10/11/2024 Payers Date Payer Category Payer Private Health Insurance [id number] 2018 Self-pay 1990 Unknown [id number] 2.16.84 0.1.109180.3.579.2.593 1990 Unknown [id number] 2.16.84 0.1.990292.3.579.2.593 1990 Unknown [id number] 2.16.84 0.1.399595.3.579.2.593 1990 Unknown [id number] 2.16.84 0.1.064171.3.579.2.593 1990 Unknown [id number] 2.16.84 0.1.181044.3.579.2.593 1990 Unknown [id number] 2.16.84 0.1.961635.3.579.2.593 1990 Unknown [id number] 2.16.84 0.1.580235.3.579.2.593 1990 Unknown [id number] 2.16.84 0.1.832002.3.579.2.593 1990 Unknown [id number] 2.16.84 0.1.774028.3.579.2.593 1990 Unknown [id number] 2.16.84 0.1.030994.3.579.2.593 1990 Unknown [id number] 2.16.84 0.1.606715.3.579.2.593 1990 Unknown [id number] 2.16.84 0.1.740456.3.579.2.593 1990 Unknown [id number] 2.16.84 0.1.189895.3.579.2.593 1990 Unknown [id number] 2.16.84 0.1.689271.3.579.2.593 1990 Unknown [id number] 2.16.84 0.1.487522.3.579.2.593 1990 Unknown [id number] 2.16.84 0.1.573233.3.579.2.593 1990 Unknown [id number] 2.16.84 0.1.961155.3.579.2.593 1990 Unknown [id number] 2.16.84 0.1.661462.3.579.2.593 1990 Unknown [id number] 2.16.84 0.1.592037.3.579.2.593 1990 Unknown [id number] 2.16.8 40.1.287784.3.579.2.1286 1990 Unknown [id number] 2.16.8 40.1.226657.3.579.2.1286 1990 Unknown [id number] 2.16.8 40.1.920316.3.579.2.1286 1990 Unknown [id number] 2.16.8 40.1.176139.3.579.2.1286 1990 Unknown [id number] 2.16.8 40.1.130995.3.579.2.1286 1990 Unknown [id number] 2.16.8 40.1.748331.3.579.2.1286 1990 Unknown [id number] 2.16.8 40.1.309255.3.579.2.1286 1990 Unknown [id number] 2.16.84 0.1.374784.3.579.2.1286 1990 Unknown [id number] 2.16.84 0.1.849155.3.579.2.1286 1990 Unknown [id number] 2.16.84 0.1.417600.3.579.2.1286 1990 Unknown [id number] 2.16.84 0.1.167278.3.579.2.1286 1990 Unknown [id number] 2.16.8 40.1.552025.3.579.2.1286 1959 Medicaid [id number] 1959 Private Health Insurance [id number] 1959 Unknown [id number] Unknown [id number] 2.16.8 40.1.757025.3.579.2.531 Social History Date Type Detail Facility Tobacco smoking stat [facility] Unknown if ever smoked [facility] Work Phone: Start: 1990 Sex Assigned At Female F [facility] Start: 07-31-2022 End: 11-08-2023 Tobacco smoking status ARIS Ex-smoker (finding) [facility] End: 09-20-2016 History of tobacco use Current smoker [facility] End: 09-20-2016 History of tobacco use Cigarette Smoker [facility] Start: 07-30-2022 End: 11-08-2023 Tobacco use and exposure Smokeless tobacco non-user [facility] Start: 10-12-2023 End: 11-08-2023 Alcohol intake Ex-drinker (finding) [facility] Start: 10-12-2023 End: 11-08-2023 History of Social function [facility] Start: 10-12-2023 End: 11-08-2023 Tobacco use panel [facility] Within the past 12 months we worried whether our food would run out before we got money to buy more. Never True [facility] Start: 1990 Sex Assigned At Not on file P [facility] Start: 11-08-2023 Tobacco Comment Social smoker [facility] Medical Equipment Procedure Code Equipment Code Equipment Origin al Text Equipment Identifier Dates Test for ketones with blood glucose >200 [id number] Start: 11-03-2022 End: 10-12-2023 Clinical Notes 01-20-2023 to 11-08-2023 GLENNY Solitario - 11/08/2023 2:15 PM ESTPatient InstructionsIsabel Medeiros MD - 10/12/2023 11:15 AM EST Note Date & Type Note Facility 11-08-2023 History of Present illness Narrative Images from the original note were not included. Subjective Shanell Last is a 33 y.o. female status post robotic assisted laparoscopic cholecystectomy on 10/25/2023. She states 2-3 nights ago she woke up due to nausea. She took an antiemetic. She did not vomit. She states she had nausea prior to surgery due to her metformin. She has also had some intermittent discomfort in her lower chest/epigastric region. She is not having it right now. She had a normal echo 10/10/2022. She has had acid reflux and regurgitation in the past. She does not smoke or drink an increased amount of caffeine. She denies any fevers or chills. She is tolerating oral intake. She reports at least 1 loose bowel movement daily. She states she feels pretty good overall. 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 Objective Vitals: 11/08/23 1416 BP: 143/77 Pulse: 80 Physical Exam Constitutional: Appearance: Normal appearance. She is obese. Abdominal: General: There is no distension. Palpations: Abdomen is soft. Tenderness: There is no abdominal tenderness. There is no guarding or rebound. Skin: General: Skin is warm and dry. Findings: No bruising or erythema. Comments: Lap sites x4 clean, dry and intact. No signs of infection. Neurological: Mental Status: She is alert. Assessment Shanell Last is a 33 y.o.female postop laparoscopic cholecystectomy. Plan Final pathology discussed and given to patient in office today. No heavy lifting for 4 more weeks. Nausea - patient was having this prior to surgery, could be underlying GERD, recommended omeprazole daily OTC. If symptoms persist or worsen follow-up in office. Patient verbalizes understanding. Status post laparoscopic cholecystectomy [Z90.49] [facility] [place] This note was created with the assistance of a speech recognition program. While intending to generate a timely document that accurately reflects the content of the visit, no guarantee can be provided that every grammatical or spelling mistake has been or will be identified or corrected. Thank you for your understanding. GLENNY Solitario 11/08/23 1439 documented in this encounter [facility] [employer] [facility] 10-15-2023 Instructions Sangita Newby RN - 10/15/2023 8:15 AM EST Preoperative Education Checklist- General Surgery date: 10/25/23 Surgery time: 930a Arrival time: 730a 1. Bring a photo ID and your insurance card with you the day of surgery. You will check in at the main lobby of the [facility]- registration desk is straight ahead as soon as you walk in. Tell them you are here for surgery. 2. If you have a Living Will/Durable Power of Optical Brightener Maker Helper for Health Care that is not on file here, please bring a copy the day of surgery. 3. Please shower/bathe the night before surgery with the provided soap or wipes. Do not shower the morning of surgery- you will do use wipes when you arrive here at the hospital before getting into your surgical gown. Do not shave the area of your procedure for 2 days prior to your surgery. 4. NO powder, lotion, perfume/cologne, aftershave, make-up, deodorant, or hair products after you have bathed. 5. NO nail georgian/acrylic on at least one finger. If you are having a hand, wrist or foot surgery then all nail georgian and artificial/acrylic nails must be removed from that hand or foot. 6. Avoid ALL Aspirin and non-steroidal anti-inflammatory drugs and certain vitamins (Ibuprofen, Advil, Aleve, Excedrin, Meloxicam, Celebrex, fish/krill oil, etc.) for 7 days prior to surgery as instructed by your surgeon and/or your prescribing doctor. Tylenol IS ALLOWED. If you are on Ticlid, Xarelto, Eliquis, Pradaxa, Plavix or Coumadin, please check with your prescribing doctor for instructions for when to stop them. 7. If you use an inhaler, continue to use it routinely. 8. Nothing to eat or drink (not even water, gum, mints, or hard candy!) AFTER midnight prior to your surgery. 9. Take only medications that you are instructed to on the morning of surgery with a TINY SIP OF WATER. 10. Choose a responsible adult that will be able to drive you home when you are discharged from your hospital stay for your surgery and can stay with you in your home for 24 hours after your procedure. You must NOT drive any vehicle or operate any machinery for 24 hours after surgery. 11. When you dress for your appointment, please wear loose fitting clothing that is appropriate to accommodate your surgical area procedure. BRING WITH YOU ANY DEVICES YOU MAY NEED: SANDRA hose, ice machine, sling/swath, brace or special shoe, oversized zip-up or button up shirt, CPAP machine if staying overnight. 12. Do NOT wear jewelry, watches, or any piercings or metal for surgery- leave these valuables and money at home. 13. Do NOT wear contact lenses for surgery- glasses are okay if needed. 14. The anesthesiologist will talk with you the day of surgery and will ask you to sign a Consent Form. 15. Refrain from smoking or any type of tobacco use for at least 8 hours and marijuana for 24 hours prior to arrival for your surgery. 16. If a GREEN BLOOD band is given to you, please bring it with you for the day of surgery. 17. Notify your surgeon if you develop any illness before your surgery. 18. If you are staying overnight, please DO NOT BRING your home medications with you. 19. If you have any questions prior to surgery, please call the Preadmission Testing office at [phone], Mon.-Fri. 7 a.m.-3 p.m. Leave a voicemail if needed. Pre-Surgery Instructions: Medication Instructions dextroamphetamine-amphetamine (ADDERALL) 30 mg tablet Stop taking 1 days prior to procedure empagliflozin (JARDIANCE) 25 mg tablet tablet Stop taking 0 days prior to procedure levonorgestreL (MIRENA) 21 mcg/24 hours (8 yrs) 52 mg IUD Stop taking 0 days prior to procedure metFORMIN (GLUCOPHAGE) 500 mg tablet Stop taking 0 days prior to procedure ondansetron ODT (ZOFRAN ODT) 4 mg disintegrating tablet Stop taking 0 days prior to procedure tirzepatide (MOUNJARO) 10 mg/0.5 mL pen injector Stop now-ask prescribing doctor if ok to stop now How to Avoid an Infection after Your Surgery Your doctor will give you specific instructions, but remember: -ALWAYS wash hands before caring for your incision. -No picking, scratching, or rubbing your incision. -No creams, lotion, powder, rubbing alcohol or hydrogen peroxide on the incision (can harm the tissue and slow healing). -Your doctor will give you specific instructions for what type of dressing you will need and how often it will need changed for infection purposes. -No tight clothing on incision. -Do not allow anyone to touch your incision unless they are cleaning, checking, or redressing it (be sure they wash their hands first). -No contact of your incision with pets; avoid sleeping with pets. -Take full course of antibiotic if prescribed for you after surgery- do not stop unless directed to by your physician. You may also be given an antibiotic prior to your surgery to help prevent surgical site infections. -Eat a healthy and varied diet including proteins, fruits, and vegetables to help promote wound healing and keep blood sugars under control if you are diabetic. -Smoking slows the healing process by decreasing the amount of oxygen in your blood that is needed for tissue healing. Try to avoid or stop smoking if possible. LOOK at your incision each morning and each night to check the progress of healing. Some soreness, numbness, itching and/or mild bruising around the incision is normal. Call your doctor if you notice any of the following: -Increased redness or hardening around the incision area. -Increased pain at the incision site. -Incision feels hot to the touch. -Swelling or pulling apart of the incision edges. -Yellow or green drainage or foul odor coming from the incision. -Bleeding from the incision (apply pressure as needed). -Fever higher than 101 degrees Fahrenheit for more than 4 hours. SHOWERING: Your doctor will give you specific instructions, but remember: -Be careful getting into and out of the shower. -Showers should be quick (5 minutes or less). -Use a clean washcloth to gently wash your incision with soap and water and pat the area dry with a clean towel. -No re-using wash cloths or towels; get a fresh one to clean your incision. -Do not soak in the bathtub, go swimming or use a hot tub (Jacuzzi), or perform activities where your incision is submerged in water or exposed to any fluids or substances until instructed by your doctor. -If your have the sticky strips (steri-strips) over the incision, it is OK to shower with them. Do not remove them. Let them fall off on their own. If you have a question, call your doctor s office. Go to the follow-up appointment with your doctor. documented in this encounter [facility] 10-12-2023 History of Present illness Narrative Images from the original note were not included. Chief Complaint: Abdominal pain History of Present Illness: Shanell Last is a 33 y.o. female who presents to the office for ER follow-up. She presented to the ER on 09/30/2023 with abdominal pain. The abdominal pain was located in the epigastric region in the right upper quadrant. The pain began 3 days prior to presentation to the ER. She notes that she had pizza for lunch prior to symptom onset. The pain was constant and became more intense so she presented to the ER. She reports that the pain was worst in the right upper quadrant. It radiated across her abdomen. She notes chronic nausea secondary to her diabetes medication. She denies any emesis. She denies any changes in bowel habits. She reports that her right upper quadrant was tender when the ER physician pressed on it. She notes recent intentional weight loss of 111 lbs, prior to this she gained 124 lb with and prior to that she would lost 80 lb. She denies any similar episodes. In the ER labs as well as ultrasound gallbladder were performed. Labs were unremarkable. Ultrasound of the gallbladder revealed cholelithiasis. 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 HPI Review of Systems Constitutional: Negative for fever and chills. Respiratory: Negative for shortness of breath. Cardiovascular: Negative for chest pain and palpitations. Gastrointestinal: Positive for abdominal pain. Negative for nausea and vomiting. Genitourinary: Negative for dysuria and difficulty urinating. Skin: Negative for rash and wound. Allergic/Immunologic: Negative for immunocompromised state. Neurological: Negative for weakness and light-headedness. Hematological: Does not bruise/bleed easily. Psychiatric/Behavioral: Negative for behavioral problems and confusion. Past Medical History: Diagnosis Date ADHD ADHD Asthma 2007 Chlamydia GERD (gastroesophageal reflux disease) Type 2 [place] mellitus [place] Past Surgical History: Procedure Laterality Date SECTION 01/20/2023 No Known Allergies Current Outpatient Medications: dextroamphetamine-amphetamine (ADDERALL) 30 mg tablet, Take 1 tablet (30 mg total) by mouth in the morning., Disp: , Rfl: empagliflozin (JARDIANCE) 25 mg tablet tablet, Take 1 tablet (25 mg total) by mouth in the morning., Disp: , Rfl: levonorgestreL (MIRENA) 21 mcg/24 hours (8 yrs) 52 mg IUD, 1 each by intrauterine route once., Disp: , Rfl: metFORMIN (GLUCOPHAGE) 500 mg tablet, Take 1000 mg (2 tablets) in the AM with breakfast and 1000 mg (2 tablets) in the evening, Disp: 120 tablet, Rfl: 1 ondansetron ODT (ZOFRAN ODT) 4 mg disintegrating tablet, Dissolve 1 tablet (4 mg total) on tongue every 8 (eight) hours as needed., Disp: , Rfl: ferrous sulfate 325 (65 FE) mg tablet, Take 1 tablet (325 mg total) by mouth daily with breakfast. (Patient not taking: Reported on 10/12/2023), Disp: , Rfl: Social History Socioeconomic History Marital status: Spouse name: Not on file Number of children: Not on file Years of education: Not on file Highest education level: Not on file Occupational History Not on file Tobacco Use Smoking status: Former Types: Cigarettes Quit date: 09/20/2016 Years since quittin.0 Smokeless tobacco: Never Vaping Use Vaping Use: Never used Substance and Sexual Activity Alcohol use: Not Currently Drug use: Never Sexual activity: Yes Other Topics Concern Not on file Social History Narrative Not on file Social Determinants of Health Financial Resource Strain: Not on file Food Insecurity: No Food Insecurity (09/22/2022) Hunger Screening Food Insecurity - Worry: Never True Food Insecurity - Inability: Never True Transportation Needs: Not on file Physical Activity: Not on file Stress: Not on file Social Connections: Not on file Interpersonal Safety: Not on file Housing Instability: Not on file Family History Problem Relation Age of Onset Hypertension Father Deep vein thrombosis Father Arthritis Father Skin cancer Father Diabetes Maternal Aunt Skin cancer Maternal Grandmother Thyroid disease Paternal Grandmother Physical Exam Vitals reviewed. Constitutional: Appearance: Normal appearance. HENT: Head: Normocephalic and atraumatic. Eyes: Pupils: Pupils are equal, round, and reactive to light. Cardiovascular: Rate and Rhythm: Normal rate. Pulmonary: Effort: Pulmonary effort is normal. Abdominal: General: There is no distension. Palpations: Abdomen is soft. Tenderness: There is no abdominal tenderness. Musculoskeletal: General: No swelling. Skin: General: Skin is warm and dry. Neurological: Mental Status: She is alert and oriented to person, place, and time. Mental status is at baseline. Psychiatric: Mood and Affect: Mood normal. Behavior: Behavior normal. Vital Signs: Height 170.2 cm (5' 7 ), weight 115.7 kg (255 lb), unknown if currently . Respiratory Source: No data recorded Admission Weight: Weight: 115.7 kg (255 lb) Labs: Lab Results Component Value Date WBC 13.1 (H) 01/14/2023 HGB 10.6 (L) 01/14/2023 HCT 32.3 (L) 01/14/2023 MCV 77 (L) 01/14/2023 PLT 302 01/14/2023 Lab Results Component Value Date GLU 80 01/14/2023 CALCIUM 9.3 01/14/2023 K 3.9 01/14/2023 CO2 25 01/14/2023 CL 103 01/14/2023 BUN 5 01/14/2023 CREATININE 0.46 01/14/2023 No results found for: AMYLASE No results found for: LIPASE Lab Results Component Value Date ALT 13 01/14/2023 AST 12 01/14/2023 ALKPHOS 88 01/14/2023 No results found for: INR , PROTIME Imaging: Upper quadrant shows a large echogenic liver, consider hepatic steatosis. Cholelithiasis without evidence of acute cholecystitis. Assessment: Shanell Last is a 33 y.o.female with biliary colic Biliary colic [K80.50] Plan: Robotic cholecystectomy, possible open, possible intraoperative cholangiogram Mennatallah Waldemar, MD [facility] Evaluation included: Preparing to see the patient (e.g., review of tests) Obtaining and/or reviewing separately obtained history Performing a medically appropriate examination and/or evaluation Counseling and educating the patient/family/caregiver Referring and communicating with other health animal caretaker Isabel Medeiros MD [facility] documented in this encounter [facility] 01-20-2023 Note DISCHARGE SUMMARY DISCHARGE DATE: 02/15/2023 PRIMARY DIAGNOSES: 1. Intrauterine at 35 5/7 weeks. 2. Elevated blood pressure. 3. Severe preeclampsia. 4. Uncontrolled gestational diabetes. PROCEDURE: Primary low transverse section. HOSPITAL COURSE: As expected. Please see chart for full details. LABORATORY DATA: Please see chart. COMPLICATIONS: None. DISCHARGE CONDITION: Stable. CONSULTATION: Anesthesia. DISCHARGE INSTRUCTIONS: 1. Diet: Regular. 2. Medications: a. Percocet 5/325 one to two p.o. every 4-6 hours p.r.n. pain. b. Motrin 800 one p.o. every 8 hours p.r.n. pain. c. Patient was sent home on labetalol 300 mg one p.o. t.i.d. 3. Followup in one week. Restrictions: Pelvic rest for 6 weeks. No heavy lifting. May drive when pain free and no longer on narcotics. [facility] 01-20-2023 Note OPERATIVE NOTE OPERATION DATE: 01/20/2023 PROCEDURE: Primary low transverse section. PREOPERATIVE DIAGNOSIS: 1. Intrauterine at 35 5/7 weeks. 2. Possible preeclampsia 3. Uncontrolled gestational diabetes. 4. Morbid obesity. POSTOPERATIVE DIAGNOSIS: 1. Intrauterine at 35 5/7 weeks. 2. Possible preeclampsia 3. Uncontrolled gestational diabetes. 4. Morbid obesity. ANESTHESIA: Spinal with Duramorph. SURGEON: Aman Church D.O. SHIPPING AND RECEIVING ASSISTANT: SHANIA Liang URINE OUTPUT: Yellow and clear. BLOOD LOSS: 600 mL. FINDINGS: Viable infant. Apgars and weight unknown at this time. SPECIMEN: Placenta. PROCEDURE: Patient was taken back to the Operating Room where she was given a spinal anesthesia with Duramorph without difficulty. She was prepped and draped in the normal sterile fashion. A Pfannenstiel skin incision was then made 2 cm above the symphysis pubis and carried down to underlying rectus fascia using a Bovie. The fascia was incised in the midline and extended laterally using Hamilton scissors. Two Milan clamps were placed on the superior aspect of the fascia and dissected off the underlying rectus muscles. The same was performed on the inferior aspect as well. The muscles were then in the midline. Peritoneum was identified and entered bluntly. The peritoneum was then extended superiorly and inferiorly with good visualization of the bladder. The bladder blade was inserted. A low transverse incision was made on the patient's uterus and extended laterally digitally. The was then delivered atraumatically after the bladder blade was removed in the cephalic position. The cord was clamped and cut. Cord blood was obtained. The was handed off to awaiting team. The patient's placenta was spontaneously delivered. The uterus was then exteriorized. The uterus was cleared of all clots and debris. The bladder blade was reinserted. The patient's uterine incision was closed using #0 Vicryl in a running lock fashion. Excellent hemostasis was assured. The uterus was then returned to the patient's abdomen. The patient's abdomen was copiously irrigated using warm saline. Peritoneal gutters were cleared of all clots and debris. Again excellent hemostasis was assured. The patient's peritoneum was closed using 3-0 Vicryl in a running fashion. The patient's fascia was closed using #0 Vicryl in a running fashion. The patient's skin was closed using 4-0 Vicryl subcuticularly. The patient tolerated the procedure well. Sponge, lap, and needle counts were correct x2. The patient was taken to the Recovery Room in stable condition. [facility] Evaluation note No assessment inform ation available [facility] Work Phone: Evaluation note Diagnosis Onset Date Hypothyroidism acute Iron deficiency acute [facility] Work Phone: Evaluation note* Diagnosis Biliary colic- Primary Calculus of gallbladder without mention of cholecystitis or obstruction Preop examination- Primary Unspecified pre-operative examination Type 2 diabetes mellitus without complication, without long-term current use of insulin ([facility]) [facility] Diagnosis Preop examination- Primary Unspecified pre-operative examination Type 2 diabetes mellitus without complication, without long-term current use of insulin ([facility]-HCC) Preop examination Unspecified pre-operative examination Type 2 diabetes mellitus without complication, without long-term current use of insulin ([facility]) [facility] Diagnosis Status post laparoscopic cholecystectomy- Primary Other postprocedural status [facility] Additional Instructions Follow-up with your BANK COMPLIANCE OFFICER Return to the ED if develop worsening symptoms or [facility] Work Phone: InstructionsNot on filedocumented in this encounter [facility]ructionsNot on filedocumented in this encounter [facility] Summary Purpose Family History No Family History Records Found Relationship Condition Age at Onset Recorded Date/T gato father Pulmonary embolism Unknown Hypertension Unknown Advance Directives No Advanced Directives Records Found Advance Directive Response Recorded Date/ Time Advance Directives No March 18 10:00am Advance Directive Response Recorded Date/ Time Advance Directives No March 18 9:00am Chief Complaint and Reason for Visit Chief Complaint O20.9 O20.9 O20.9 anemia. Chief Complaint O20.9 O20.9 O20.9 anemia. Anemia 10 wks iup, abd pain/cramps Reason for Visit Hypothyroidism Iron deficiency Reason for Referral Specialty Diagnoses / Procedures Referred By Juan botello Referred To Contact Diagnoses Biliary colic Procedures Unlisted Procedure / Surgery Isabel Medeiros MD [address] [place] [address] Referral ID Status Reason Start Date Expiration Date V isits Requested Visits Authorized [id number] Pending Review 10/12/2023 10/11/2024 1 1 Specialty Diagnoses / Procedures Referred By Juan t Referred To Contact Diagnoses Preop examination Type 2 diabetes mellitus without complication, without long-term current use of insulin ([facility]) Procedures ECG 12 lead Elvin Valente MD [address] [place] [address] Referral ID Status Reason Start Date Expiration Date V isits Requested Visits Authorized [id number] Pending Review 10/12/2023 10/11/2024 1 1 Additional Source Comments INFORMATION SOURCE (unrecogn ized section and content) DATE CREATED AUTHOR 06/17/2018 Gabo Dawsonus [facility] DATE CREATED AUTHOR AUTHOR'S ORGANIZ ATION 02/26/2023 [facility] DATE CREATED AUTHOR AUTHOR'S ORGANIZ ATION 08/21/2023 [facility] DATE CREATED AUTHOR AUTHOR'S ORGANIZ ATION 10/31/2023 [facility] DATE CREATED AUTHOR AUTHOR'S ORGANIZ ATION 11/10/2023 [facility] Care Teams (unrecognized sec tion and content) Team Status: Inactive Member Role Status Dates Lisa Moe MD Primary Care Provider Active Kelly Black MD Attending Provider Active Team Status: Active Member Role Status Dates Lisa Moe MD Primary Care Provider Active Team Status: Inactive Member Role Status Dates Lisa Moe MD Primary Care Provider Active Leeroy Collazo DO Emergency Provider Active Team Status: Active Member Role Status Dates Lisa Moe MD Primary Care Provider Active Dimple Del Rosario MD Attending Provider Active Kelly Black MD Referring Provider Active 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 Rehabilitation Administrator Relationship Specialty Start Date End Date Lisa Moe MD [facility] [place] [place] [address] PCP - General Family Medicine 08/21/22 Vocational Rehabilitation Administrator Relationship Specialty Start Date [place] [address] PCP - General Family Medicine 08/21/22 Vocational Rehabilitation Administrator Relationship Specialty Start Date End [place] [address] PCP - General Family Medicine 08/21/22 Goals (unrecognized section and content) Goals may be documented in a n alternate sectionGoals may be documented in an alternate sectionGoals may be documented in an alternate sectionNot on filedocumented as of this encounterNot on filedocumented as of this encounterNot on filedocumented as of this encounter Reason for Visit (unrecogniz ed section and content) Reason Comments Cholelithiasis CHOLELITHIASIS, [facility] 09/30/23 Reason Comments Post-op Post op davinci chol ecystectomy performed 10/25/23 at [facility] FOR RECORDS PERTAINING TO PATIENTS WHO ARE OR HAVE BEEN ENROLLED IN A CHEMICAL DEPENDENCY/SUBSTANCEABUSE PROGRAM, SOME INFORMATION MAY BE OMITTED. This clinical summary was aggregated from multiple sources. Caution should be exercised in using it in the provision of clinical care. This summary normalizes information from multiple sources, and as a consequence, information in this document may materially change the coding, format and clinical context of patient data. In addition, data may be omitted in some cases. CLINICAL DECISIONS SHOULD BE BASED ON THE PRIMARY CLINICAL RECORDS. [facility] [employer] [facility]. provides no warranty or guarantee of the accuracy or completeness of information in this document.
--- NOTE | 2023-11-17 09:54 | ECG_ITS ---
The [facility] Test Date: 2023-11-17 Pat Name: PAM LAST Department: Room: - Gender: Female Entry Operator: : [id number] Requested By: [id number] Order Number: [id number] Reading MD: GRAHAM DE LA CRUZ Measurements Intervals [place] Rate: 83 P: 72 CA: 186 QRS: 52 QRSD: 84 T: 270 QT: 348 QTc: 387 Interpretive Statements 1100 Sinus rhythm 4068 Nonspecific Twave abnormality 8102 Low QRS voltage in chest leads 9130 borderline ECG No previous ECG available for comparison Electronically Signed On 11-18-2023 6:35:25 EST by GRAHAM DE LA CRUZ
--- NOTE | 2023-11-17 09:54 | ED_ITS ---
HPI - General Adult General Chief complaint: Abdominal Pain Stated complaint: ABDOMINAL PAIN Time Seen by Provider: 11/17/23 09:51 Mode of arrival: walk-in History of Present Illness HPI narrative: Patient is a 33-year-old female who is presenting to the ER with chief complaint of 3 different episodes since October 25 when her gallbladder was removed have extreme intense pain to the midepigastric area that radiates underneath both breast to the upper quadrants bilateral that lasts for several hours with nausea. Patient had 1 episode of intense vomiting after her surgery. Patient had her gallbladder removed at [facility] with Dr. Medeiros. Patient has not done any type of heavy lifting, twisting or turning recently. No chest pain or shortness of breath. Patient's pain and nausea has subsided. Patient has no fever or chills. Patient has no urinary complaints, no diarrhea or constipation. Patient patient's grandmother and are in the room as well. Patient called the [facility] office this morning, and was told to go to the ER. Her surgeon is in surgery today. Patient saw the nurse practitioner and the surgeon's office once after surgery and brought up these concerns and no testing was done. Patient states she is having normal bowel movements, no complications. Patient states she knows what acid reflux feels like, this is not it. No history of kidney stones. Patient stated to this last episode started about 14 hours after she ate, started acutely at 5:00 this morning, and has subsided and is almost gone during initial interview approximately 10 AM. All systems are negative except as noted/marked. All systems reviewed and otherwise negative. Nurses note and vital signs reviewed and patient is not hypoxic. General: The patient appears well and in no apparent distress. Patient is resting comfortably on cart. Patient is not toxic, lethargic, or listless Skin: Warm, dry, no pallor noted. There is no rash noted. No petechiae, purpura. Head: Normocephalic, atraumatic Eye: Normal conjunctiva, no drainage, EOMI. PERRL Ears, Nose, Mouth, and Throat: oral mucosa is moist. Nares patent. Mouth without vesicles. Cardiovascular: Regular Rate and Rhythm, no murmur, gallop, rub Respiratory: Patient is in no distress, no accessory muscle use, lungs are clear to auscultation, no wheezing, rales or rhonchi Back: non-tender, no CVA tenderness bilaterally to percussion. No CT LS midline pain GI: Obese, mild midepigastric tenderness to palpation, no right upper quadrant or left upper quadrant tenderness to palpation. Otherwise no tenderness to palpation, no masses appreciated. No rebound, guarding, or rigidity noted. No distention no peritoneal signs.. Musculoskeletal: Patient has full range of motion of all of the extremities, no motor, sensory, or focal neurological deficits Neurological: A&O x4, normal speech Psychiatric: Cooperative Related Data Home Medications Medication Instructions Recorded Confirmed empagliflozin 25 mg tablet 25 mg PO DAILY 09/30/23 09/30/23 (Jardiance) metformin 500 mg tablet 1,000 mg PO QAM 09/30/23 09/30/23 tirzepatide 10 mg/0.5 mL 10 mg subcut QAM 09/30/23 09/30/23 subcutaneous pen injector (Layla) Previous Rx's Medication Instructions Recorded acetaminophen 300 mg-codeine 30 mg 1 tab PO Q6H PRN pain 5 days #20 09/30/23 tablet tabs ondansetron 4 mg disintegrating 4 mg PO Q6H PRN nausea and 09/30/23 tablet vomiting #20 tabs dicyclomine 20 mg tablet 20 mg PO TID PRN abdominal pain #7 11/17/23 tabs ondansetron 4 mg disintegrating 4 mg PO Q4H PRN nausea and 11/17/23 tablet vomiting 3 days #6 tabs Allergies Allergy/AdvReac Type Severity Reaction Status Date / Time No Known Drug Allergies Allergy Verified 09/30/23 10:16 Exam Constitutional Vital Signs, click to edit/add: Last Vital Signs Temp 98.1 F 11/17/23 09:27 Pulse 76 11/17/23 12:40 Resp 10 L 11/17/23 12:40 BP 126/85 11/17/23 11:06 Pulse Ox 97 11/17/23 12:40 Course Vital Signs Vital signs: Vital Signs Temperature 98.1 F 11/17/23 09:27 Pulse Rate 85 11/17/23 09:27 Respiratory Rate 18 11/17/23 09:27 Blood Pressure 129/85 11/17/23 09:27 Pulse Oximetry 98 11/17/23 09:27 Temperature 98.1 F 11/17/23 09:27 Pulse Rate 76 11/17/23 12:40 Respiratory Rate 10 L 11/17/23 12:40 Blood Pressure 126/85 11/17/23 11:06 Pulse Oximetry 97 11/17/23 12:40 Medical Decision Making MDM Narrative Medical decision making narrative: 1120 patient was not having pain and nausea when initially assessed her, patient does not want a thing for pain or nausea at that time. Patient is having return pain to the midepigastric that is radiating to her left upper quadrant to her left back. Patient is given morphine and Zofran. At discharge I have called Dr. Medeiros, leaving a message for her office staff. Will try again to get a hold of her later as well. Patient's CBC, LFTs, lipase, CT of the abdomen pelvis showed no acute findings. Patient is very persistent that something is not right, she has had 3 of these episodes since her surgery October 25. Patient has a stable abdomen at discharge. No peritoneal signs, soft, no guarding, no rigidity, no acute findings on repeat exam of her abdomen. No significant midepigastric pain. She is having no nausea. Patient states her something not right with her, does not believe this is flatulence, states she is not constipated, states this is not acid reflux. Possible differential diagnoses were discussed initially when patient arrived and at discharge, patient will follow-up with Dr. Medeiros as well. We also discussed possibility of side effects from her diabetic medication as well. She will follow-up who prescribed her diabetic medication as well to 1410 I spoke to patient's surgeon, Dr. Medeiros. We discussed patient's lab work, CT finding. Patient will follow-up in the office. Patient was sent home with Pooja and Kenia. Dr. Medeiros stated they will start her on a PPI. No other recommendations or concerns from Dr. Medeiros. Patient had left the ER when I finally spoke to Dr. Medeiros, her office will call the patient to start her on a PPI. Lab Data Labs: Lab Results 11/17/23 Range/Units 09:56 WBC 7.8 (4.0-11.0) 10^3/uL RBC 5.40 (4.20-5.40) 10^6/uL Hgb 13.9 (12.0-16.0) g/dL Hct 43.7 (36.0-48.0) % MCV 80.9 L (81.0-99.0) fL MCH 25.7 L (26.7-34.0) pg MCHC 31.8 (29.9-35.2) g/dL RDW 15.0 (11.0-15.0) % Plt Count 346 (150-450) 10^3/uL MPV 9.2 L (9.5-13.5) fL Neut % (Auto) 55.3 (43.0-75.0) % Lymph % (Auto) 36.3 (20.5-60.0) % [place] % (Auto) 5.9 (1.7-12.0) % Eos % (Auto) 1.4 (0.9-7.0) % Baso % (Auto) 0.5 (0.2-2.0) % Neut # (Auto) 4.3 (1.4-6.5) 10^3/uL Lymph # (Auto) 2.8 (1.2-3.8) 10^3/uL [place] # (Auto) 0.5 (0.3-0.8) 10^3/uL Eos # (Auto) 0.1 (0.0-0.7) 10^3/uL Baso # (Auto) 0.0 (0.0-0.1) 10^3/uL Abs Immat Gran (auto) 0.05 H (0.00-0.03) 10^3/uL Imm/Tot Granulo (auto) 0.6 H (0.0-0.5) % Sodium 139 (136-145) mmol/L Potassium 3.4 L (3.5-5.1) mmol/L Chloride 101 (98-107) mmol/L Carbon Dioxide 30.3 (21.0-32.0) mmol/L Anion Gap 11.1 BUN 10.0 (7.0-18.0) mg/dL Creatinine 0.69 (0.55-1.02) mg/dL Est GFR ( Amer) >60 (>=60) Est GFR (Non-Af Amer) >60 (>=60) BUN/Creatinine Ratio 14.5 Glucose 122 H (74-106) mg/dL Calcium 9.1 (8.5-10.1) mg/dL Total Bilirubin 0.8 (0.2-1.0) mg/dL AST 28 (15-37) U/L ALT 34 (14-59) U/L Alkaline Phosphatase 74 (46-116) U/L Troponin I High Sens <4.0 L (4.0-51.3) pg/mL Total Protein 8.2 (6.4-8.2) g/dL Albumin 3.9 (3.4-5.0) g/dL Globulin 4.3 g/dL Albumin/Globulin Ratio 0.9 Lipase 45.0 (16.0-77.0) U/L Urine Color Yellow (YELLOW) Urine Clarity Clear (CLEAR) Urine pH 7.5 (5.0-9.0) Ur Specific [place] 1.020 (1.005-1.025) Urine Protein 30 A (NEG/TRACE) mg/dL Urine Glucose (UA) >=1000 A (NEGATIVE) mg/dL Urine Ketones 40 A (NEGATIVE) mg/dL Urine Occult Blood Negative (NEGATIVE) Urine Nitrite Negative (NEGATIVE) Urine Bilirubin Small A (NEGATIVE) Urine Urobilinogen 0.2 (0.2-1.0) EU/dL Ur Leukocyte Esterase Negative (NEGATIVE) Urine RBC None seen (0-2) #/HPF Urine WBC None seen (NONE SEEN) #/HPF Ur Squamous Epith Cells Many A (NONE/RARE) #/LPF Urine Crystals None seen (None Seen) #/HPF Urine Bacteria Small A (NONE SEEN) #/HPF Urine Casts None seen (NONE SEEN) #/LPF Urine Mucus Small A (NONE SEEN) Urine HCG, Qual Negative (NEGATIVE) ECG Data Attestation: I personally reviewed and interpreted this ECG as follows: (EKG interpretation. Normal sinus rhythm 83 beats a minute. Normal axis deviation. No acute ST elevation, no acute ectopy. QTc of 387) Discharge Plan Discharge Chief Complaint: Abdominal Pain Clinical Impression: Midepigastric pain, Abdominal pain, Biliary colic Patient Disposition: Home, Self-Care Time of Disposition Decision: 12:34 Condition: Fair Prescriptions / Home Meds: New dicyclomine 20 mg tablet 20 mg PO TID PRN (Reason: abdominal pain) Qty: 7 0RF ondansetron 4 mg tablet,disintegrating 4 mg PO Q4H PRN (Reason: nausea and vomiting) 3 Days Qty: 6 0RF No Action Jardiance 25 mg tablet 25 mg PO DAILY metformin 500 mg tablet 1,000 mg PO QAM Mounjaro 10 mg/0.5 mL pen injector 10 mg SUBCUT QAM acetaminophen-codeine 300-30 mg tablet 1 tab PO Q6H PRN (Reason: pain) 5 Days Qty: 20 0RF ondansetron 4 mg tablet,disintegrating 4 mg PO Q6H PRN (Reason: nausea and vomiting) Qty: 20 0RF Instructions: Biliary Colic (ED), Abdominal Pain (ED), Epigastric Pain (ED) Additional Instructions: Follow-up with your general surgeon, Dr Medeiros at [facility]. We attempted to contact your surgeon, we had to leave a message with her office staff, I do not have another way to contact her. Increase liquids, use Zofran as needed for nausea. Use Bentyl as needed for abdominal cramping. Continue medications as prescribed. Also follow-up with PCP or whoever else prescribes her medications for reevaluation. Stand Alone Forms: Portal Instructions Referrals: Physician,Non-Staff, MD [Primary Care Provider] - 1 week Discharge Date/Time: 11/17/23 13:12
[2023-11-17] MEDS: FAMOTIDINE/PF 20 MG/2 ML VIAL IV (10:05)
[2023-11-17] MEDS: 0.9 % SODIUM CHLORIDE 1,000 ML 999 ML IV (10:05)
[2023-11-17 10:07] LABS: Basophils Percent Auto 0.5 % (0.2-2.0); Eosinophils Absolute Auto 0.1 10^3/uL (0.0-0.7); Eosinophils Percent Auto 1.4 % (0.9-7.0); Hematocrit 43.7 % (36.0-48.0); Hemoglobin 13.9 g/dL (12.0-16.0); Immature Granulocytes Abs Auto 0.05 10^3/uL (0.00-0.03); Immature Granulocytes Pct Auto 0.6 % (0.0-0.5); Lymphocytes Absolute Auto 2.8 10^3/uL (1.2-3.8); Lymphocytes Percent Auto 36.3 % (20.5-60.0); Mean Corpuscular HGB Conc 31.8 g/dL (29.9-35.2); Mean Corpuscular Hemoglobin 25.7 pg (26.7-34.0); Mean Corpuscular Volume 80.9 fL (81.0-99.0); Mean Platelet Volume 9.2 fL (9.5-13.5); Monocytes Absolute Auto 0.5 10^3/uL (0.3-0.8); Monocytes Percent Auto 5.9 % (1.7-12.0); Neutrophils Absolute Auto 4.3 10^3/uL (1.4-6.5); Neutrophils Percent Auto 55.3 % (43.0-75.0); Platelet Count 346 10^3/uL (150-450); White Blood Count 7.8 10^3/uL (4.0-11.0)
[2023-11-17 10:12] LABS: Bilirubin Urine SMALL (NEGATIVE); Blood Urine NEGATIVE (NEGATIVE); Clarity Urine CLEAR (CLEAR); Color Urine YELLOW (YELLOW); Glucose Urine UA >=1000 mg/dL (NEGATIVE); Ketones Urine 40 mg/dL (NEGATIVE); Leukocyte Esterase Urine NEGATIVE (NEGATIVE); Nitrite Urine NEGATIVE (NEGATIVE); Protein Urine 30 mg/dL (NEG/TRACE); Urobilinogen Urine 0.2 EU/dL (0.2-1.0); pH Urine 7.5 (5.0-9.0)
[2023-11-17 10:14] LABS: HCG Qualitative Urine* NEGATIVE (NEGATIVE)
[2023-11-17 10:24] LABS: Bacteria Urine SMALL #/HPF (NONE SEEN); Cast Seen? NONE SEEN #/LPF (NONE SEEN); Crystals Seen? None Seen #/HPF (None Seen); Mucus Urine SMALL (NONE SEEN); RBC Urine NONE SEEN #/HPF (0-2); Squamous Epithelial Cell Urine MANY #/LPF (NONE/RARE); WBC Urine NONE SEEN #/HPF (NONE SEEN)
[2023-11-17 10:26] LABS: Anion Gap 11.1
[2023-11-17 10:28] LABS: Alanine Aminotransferase 34 U/L (14-59); Albumin Globulin Ratio 0.9; Albumin Level 3.9 g/dL (3.4-5.0); Alkaline Phosphatase 74 U/L (46-116); Aspartate Amino Transferase 28 U/L (15-37); BUN Creatinine Ratio 14.5; Bilirubin Total 0.8 mg/dL (0.2-1.0); Calcium 9.1 mg/dL (8.5-10.1); Carbon Dioxide 30.3 mmol/L (21.0-32.0); Chloride 101 mmol/L (98-107); Estimated GFR (African America >60 (>=60); Estimated GFR (Non-African Ame >60 (>=60); Globulin 4.3 g/dL; Glucose 122 mg/dL (74-106); Potassium 3.4 mmol/L (3.5-5.1); Sodium 139 mmol/L (136-145); Total Protein 8.2 g/dL (6.4-8.2); Troponin I High Sensitivity <4.0 pg/mL (4.0-51.3)
--- NOTE | 2023-11-17 10:28 | CT_ITS ---
[address] [address] Patient Name: PAM LAST MRN: [id number] date: 1990 Sex: F Assigned Patient Location: ER Current Patient Location: ER Accession/Order Number: [id number] Exam Date: 11/17/2023 11:25 Report Date: 11/17/2023 12:02 At the request of: ADELINA CORNELIUS Procedure: CT abdomen pelvis w con EXAMINATION: CT abdomen pelvis w con HISTORY: Recent cholecystectomy, epigastric pain COMPARISON: 09/30/2023 ultrasound TECHNIQUE: CT images were created with IV contrast. Axial, Coronal, and Sagittal images. Dose reduction techniques were achieved by using automated exposure control and/or adjustment of mA and/or kV according to patient size and/or use of iterative reconstruction technique. FINDINGS: LUNG BASES: No visible pulmonary or pleural disease. LIVER: Hepatomegaly. Diffuse hypoattenuation suggesting hepatic steatosis. BILIARY: The gallbladder is surgically absent PANCREAS: No lesion, fluid collection, ductal dilatation, or atrophy. SPLEEN: No enlargement or focal lesion. ADRENALS: No mass or enlargement. KIDNEYS: No mass, obstruction, or calcification. BOWEL/MESENTERY: No visible mass, obstruction, or bowel wall thickening. AORTA/VASCULAR: No aneurysm or dissection. RETROPERITONEUM: No mass or adenopathy. LYMPH NODES: No adenopathy. URINARY BLADDER: No visible focal wall thickening, lesion, or calculus. PELVIC ORGANS: No visible mass. Pelvic organs appropriate for patient age. IUD normally positioned ABDOMINAL WALL: No mass or hernia. BONES: No bony lesion or fracture. OTHER: Negative. CT/CT abdomen pelvis w con IMPRESSION: No acute intraperitoneal abnormality Electronically authenticated by: ELVIN DELGADILLO Date: 11/17/2023 12:02
[2023-11-17] MEDS: ONDANSETRON PF 4 MG/2 ML VIAL IV (11:41)
[2023-11-17] MEDS: MORPHINE SULFATE 4 MG/ML VIAL IV (11:41)
== END 2023-11-17 13:12 | disposition home or self-care (01) ==
PROVIDERS: Emergency Provider Emergency Medicine
DX: R10.9 Unspecified abdominal pain (principal); R10.13 Epigastric pain; K80.50 Calculus of bile duct without cholangitis or cholecystitis without obstruction; Z90.49 Acquired absence of other specified parts of digestive tract; E66.9 Obesity, unspecified; Z79.84 Long term (current) use of oral hypoglycemic drugs; Z79.899 Other long term (current) drug therapy; Z68.36 Body mass index [BMI] 36.0-36.9, adult
CPT/HCPCS: 36415; 74177; 80053; 81001; 83690; 84484; 84703; 85025; 93005; 96374; 96375; 99285; Q9967

== ENCOUNTER 2024-07-06 19:17 | Outpatient (REF) | payer OTHER, SELFPAY ==
--- OUTSIDE RECORDS SUMMARY | 2024-07-06 19:21 | XMS_ITS | CCD ---
Author Organization [facility] CliniSynh Care Team Providers Care School Social Worker Name Role Phone Abbi Martin Unavailable Unavailable Abbi Martin Unavailable Unavailable YUMIKO BOUDREAUX Unavailable Unavailable Abbi Martin Unavailable Unavailable Abbi Martin Unavailable Unavailable NONE, XXXX Unavailable Unavailable MD Emery Moe Primary Care Provider MD Kelly Black Attending Provider [phone] MD Emery Moe Primary Care Provider [phone] MD Kelly Black Attending Provider MD Dimple Del Rosario Attending Provider MD Kelly Black Referring Provider [phone] DO Leeroy Collazo M Emergency Provider ABHI, [...] REQUEST, NONE LISTED Primary Care Unavaila ble ARISTIDES [...] DR NONE LISTED Primary Care Unavaila ble ABHI, DR LAND Primary Care Unavailable KEARA, DR LOERA Admitting Unavailable KEARA, DR OLERA Attending Unavailable GRECHNY ., BENITO LECHUGA Consulting Unavailabl e HO, ARACELIS Consulting Unavailable KLIPPELVIN RODAS Consulting Unavailable ABHI, DR LAND Primary Care Unavailable MISC, DR YANG Admitting Unavailable MISC, DR YANG Attending Unavailable MISC, DR YANG Consulting Unavailable ARISTIDES ., DR NEWTON Attending Unavailable ABHI, DR LAND Primary Care Unavailable LE CLAIRE, DR ELVIN George Consulting Unavailable ARISTIDES ., [...] ., DR SIU Consulting Unavailabl e REQUEST, DR NONE LISTED Primary Care Unavaila ble ABHI, DR LAND Primary Care Unavailable ARISTIDES ., DR NEWTON Attending Unavailable ARISTIDES ., DR NEWTON Consulting Unavailable ARISTIDES ., DR NEWTON Admitting Unavailable ZIEBER, DR JUAN JOSE Lopez Consulting Unavailable KARASIK ., DR SIU [...] NEWTON Attending Unavailable PASQUALE VERDUZCO Consulting Unavailable UGCLINT MCADAMS Consulting Unavailable NAINA II, BROOKLYN Consulting Unavailable ARISTIDES ., DR NEWTON Admitting Unavailable REQUEST, DR NONE LISTED Primary Care Unavaila ble ARISTIDES ., DR NEWTON Attending Unavailable Leeroy Collazo Attending Unavailable Vale, Leeroy M Admitting Unavailable Abhi, Rugen M Primary Care Unavailable Abhi Emery LOVETT Primary Care Provider [phone] ABHI, RUGEN M Referring Unavailable ABHI, RUGEN M Primary Care Unavailable ELVIN VALENTE Attending Unavailable ELVIN VALENTE Referring Unavailable ABHI, RUGEN M Primary Care Unavailable ELVIN VALENTE Referring Unavailable ABHI, RUGEN M Primary Care Unavailable KRISTY, MENNATALLAH M Admitting Unavailable KRISTY, MENNATALLAH M Attending Unavailable KRISTY, MENNATALLAH M Referring Unavailable ABHI, RUGEN M Primary Care Unavailable MAINOR FINE Attending Unavailable ABHI, RUGEN M Primary Care Unavailable ABHI, RUGEN M Referring Unavailable ABHI, RUGEN M Primary Care Unavailable ABHI, RUGEN M Referring Unavailable ABHI, RUGEN M Primary Care Unavailable ABHI, RUGEN M Referring Unavailable ABIH, RUGEN M Primary Care Unavailable ABHI, RUGEN M Referring Unavailable ABHI, RUGEN M Primary Care Unavailable KRISTY, MENNATALLAH M Attending Unavailable ABHI, RUGEN M Referring Unavailable ABHI, RUGEN M Primary Care Unavailable KIM GARCIA Attending Unavailable ABHI, RUGEN M Referring Unavailable ABHI, RUGEN M Primary Care Unavailable Unavailable Primary Care Provider Unavailabl e PROVIDER, UNKNOWN Admitting Unavailable MIREILLE RILEY Attending Unavailable ABHI, RUGEN M Attending Unavailable ABHI, RUGEN M Attending Unavailable GUS BUSTAMANTE Attending Unavailable SEBASTIÁN GARCIA Attending Unavailable SEBASTIÁN GARCIA Referring Unavailable SEBASTIÁN GARCIA Referring Unavailable NANCY FLOWERS Attending Unavailable NANCY FLOWERS Referring Unavailable NANCY FLOWERS Attending Unavailable GUS BUSTAMANTE Attending Unavailable Emery Moe MD Primary Care Provider Medications Current Medications Medication Drug Class(es) Dates Sig (Normalized) Sig (Original) amphetamine aspartate 7.5 mg / amphetamine sulfate 7.5 mg / dextroamphetamine saccharate 7.5 mg / dextroamphetamine sulfate 7.5 mg oral tablet (9 sources) Central Nervous System Stimulant Start: 04-25-2024 End: 08-02-2024 take 1 tablet by mouth once daily amphetamine-dextro amphetamine (Adderall) 30 MG tablet Indications: Attention deficit hyperactivity disorder, predominantly inattentive type (CMS/HCC) Take 1 tablet (30 mg) by mouth Daily 30 tablet 07/03/2024 08/02/2024 Active Start: 08-24-2023 take 1 tablet by manoj th in the morning dextroamphetamine-amphetamine (ADDERALL) 30 mg tablet Take 1 tablet (30 mg total) by mouth in the morning. 0 08/24/2023 Active empagliflozin 25 mg oral tablet (8 sources) Sodium-Glucose Cotransporter 2 Inhibitor Start: 02-26-2023 End: 02-21-2024 take 1 tablet by mouth in the morning empagliflozin (Jardiance) 25 MG Indications: Type 2 diabetes mellitus with hyperglycemia, without long-term current use of insulin (CMS/HCC) Take 1 tablet (25 mg) by mouth in the morning. 360 tablet 02/26/2023 Active ferrous sulfate 325 mg oral tablet [...] SUBCUT Daily July 12, 2022 11:00pm levonorgestrel 0.448202 mg/hr intrauterine system (8 sources) Progestin, Progestin-contain ing Intrauterine Device Start: 03-16-2023 levonorgestreL (MIRENA) 21 mcg/24 hours (8 yrs) 52 mg IUD 1 each by intrauterine route once. 0 03/16/2023 Active Start: 03-16-2023 Levonorgestrel intrauterine device metFORMIN hydrochloride 500 mg oral tablet (10 sources) Biguanide Start: 04-25-2024 take 2 tablets by mouth in the morning metFORMIN (Glucophage) 500 MG tablet Indications: Type 2 diabetes mellitus without complication, without long-term current use of insulin (CMS/HCC) Take 2 tablets (1,000 mg) by mouth in the morning and 2 tablets (1,000 mg) in the evening. Take with meals. 400 tablet 3 04/25/2024 Active Start: 07-13-2022 metFORMIN (GLU COPHAGE) 500 mg tablet Take 1000 mg (2 tablets) in the AM with breakfast and 1000 mg (2 tablets) in the evening 120 tablet 1 12/03/2022 Active nabumetone 500 mg oral tablet (4 sources) Nonsteroidal Anti-inflammatory Drug Start: 06-13-2024 End: 07-13-2024 take 1 tablet by mouth in the morning nabumetone (Relafen) 500 MG tablet Indications: Arthritis of left sternoclavicular joint Take 1 tablet (500 mg) by mouth in the morning and 1 tablet (500 mg) before bedtime. 30 tablet 1 06/13/2024 07/13/2024 Active ondansetron 4 mg disintegrating oral tablet (4 sources) Serotonin-3 Receptor Antagonist Start: 09-30-2023 take 1 tablet by mouth every eight hours as needed ondansetron ODT (ZOFRAN ODT) 4 mg disintegrating tablet Dissolve 1 tablet (4 mg total) on tongue every 8 (eight) hours as needed. 0 09/30/2023 Active oxymetazoline hydrochloride 10 mg/ml topical cream (4 sources) Start: 04-18-2024 Oxymetazoline HCl (Rhofade) 1 % cream Indications: Other rosacea Apply thin layer to face qd 30 g 11 04/18/2024 Active Vit 28-Iron Fum-Folic (2 sources) Start: 07-13-2022 take 1 tablet by mouth once daily Vit 28-Iron Fum-Folic Active 1 TAB PO Daily July 12, 2022 11:00pm tirzepatide (MOUNJARO) 10 mg/0.5 mL pen injector (3 sources) tirzepatide (MOUNJARO) 10 mg/0.5 mL pen injector Inject 10 mg under the skin every 7 days. sundays 0 Active Tirzepatide (Mounjaro) 10 MG/0.5ML solution pen-injector (4 sources) Start: 06-12-2024 inject 10 mg by subcutaneous injection every week Tirzepatide (Mounjaro) 10 MG/0.5ML solution pen-injector Indications: Type 2 diabetes mellitus with hyperglycemia, without long-term current use of insulin (CMS/HCC) Inject 10 mg under the skin 1 (one) time per week 2 mL 1 06/12/2024 Active Completed/Discontinued Medications Medication Drug Class(es) Dates [...] Discontinued (Therapy completed) blood-glucose meter,continuous (DEXCOM G6 INTERNAL AFFAIRS INVESTIGATOR) misc (1 source) Start: 11-09-2022 End: 10-12-2023 blood-glucose meter,continuous (DEXCOM G6 INTERNAL AFFAIRS INVESTIGATOR) misc Indications: Pre-existing type 2 diabetes mellitus [...] before bedtime. 0 10/12/2023 Discontinued (Therapy completed) [id number] fumarate-FA () 28-800 mg-mcg tablet (1 source) End: 10-12-2023 [id number] fumarate-FA () 28-800 mg-mcg tablet Take by [...] Problem Classification Problem Date Documented Date Episodic/Chronic Abdominal pain (5 sources) Pelvic and perineal pain; Translations: [Unspecified abdominal pain] Onset: 07-31-2022 Episodic Administrative/socia l admission (2 sources) Patient care statuses; Translations: [Encounter for nonprocreative genetic counseling] Onset: 05-23-2024 05-23-2024 Episodic Attention-deficit, conduct, and disruptive behavior disorders (5 sources) Attention deficit hyperactivity disorder, predominantly inattentive type; Translations: [Attention-deficit hyperactivity disorder, predominantly inattentive type] Onset: 02-23-2023 02-23-2023 Chronic Biliary tract disease (4 sources) Biliary colic; Translations: [Calculus of bile duct without cholangitis or cholecystitis without obstruction] Onset: 10-12-2023 10-12-2023 Episodic Diabetes mellitus with complications (4 sources) Hyperglycemia due to type 2 diabetes mellitus; Translations: [Type 2 diabetes mellitus with hyperglycemia] Onset: 02-26-2023 02-26-2023 Chronic Diabetes mellitus without complication (6 sources) Type 2 diabetes mellitus without complication; Translations: [Type 2 diabetes mellitus without complications] Onset: 02-23-2023 10-12-2023 Chronic Diabetes or abnormal glucose tolerance complicating ; childbirth; or the puerperium (9 sources) Pre-existing type 2 diabetes mellitus, in , third trimester; Translations: [Pre-existing type 2 diabetes mellitus in ] Onset: 08-19-2022 12-07-2022 Chronic Diabetes or abnormal glucose tolerance complicating ; childbirth; or the puerperium (4 sources) Gestational diabetes mellitus in , insulin controlled; Translations: [GESTATIONAL DM PREG INSULIN CONTROL] Onset: 01-12-2023 Episodic Esophageal disorders (4 sources) Gastroesophageal reflux disease without esophagitis; Translations: [Gastro-esophageal reflux disease without esophagitis] Onset: 02-23-2023 02-23-2023 Chronic Essential hypertension (4 sources) Essential hypertension; Translations: [Essential (primary) hypertension] Onset: 02-26-2023 02-26-2023 Chronic Hemorrhage during ; abruptio placenta; placenta previa (2 sources) Antepartum hemorrhage; Translations: [Hemorrhage in early , unspecified] 07-31-2022 Episodic Hypertension complicating ; childbirth and the puerperium (13 sources) Unspecified pre-existing hypertension complicating , third trimester; Translations: [Chronic hypertension complicating AND/OR reason for care during ] Onset: 11-10-2022 11-10-2022 Chronic Hypertension complicating ; childbirth and the puerperium (1 source) Gestational [-induced] hypertension without significant proteinuria, third trimester; Translations: [GEST HTN NO SIG PROTEINURIA 3RD TRI] Onset: 01-10-2023 Episodic Malaise and fatigue (4 sources) Fatigue; Translations: [Other fatigue] Onset: 04-13-2024 04-13-2024 Episodic Menstrual disorders (4 sources) Excessive and frequent menstruation; Translations: [Excessive and frequent menstruation with regular cycle] Onset: 02-23-2023 02-23-2023 Chronic Neoplasms of unspecified nature or uncertain behavior (2 sources) Neoplasm of uncertain behavior of skin; Translations: [Neoplasm of uncertain behavior of skin] 06-23-2024 Episodic Nutritional deficiencies (3 sources) Iron deficiency; Translations: [Iron deficiency] 07-14-2022 Episodic Other complications of (4 sources) Obesity; Translations: [Obesity complicating , unspecified trimester] Onset: 10-05-2022 11-10-2022 Chronic Other complications of (4 sources) Other specified related conditions, third trimester; Translations: [OTH SPEC PREG RELATED COND 3RD TRI] Onset: 12-25-2022 Episodic Other complications of (1 source) Supervision of other high risk pregnancies, third trimester; Translations: [SUP OTH HIGH RISK 3RD TRI] Onset: 12-18-2022 Episodic Other skin disorders (1 source) Biopsy result abnormal; Translations: [Disorder of the skin and subcutaneous tissue, unspecified] 05-23-2024 Episodic Other skin disorders (1 source) Disorder of the skin and subcutaneous tissue, unspecified; Translations: [Disorder of the skin and subcutaneous tissue, unspecified] Onset: 05-23-2024 Episodic Residual codes; unclassified (1 source) 34 [...] unspecified; Translations: [Pain, unspecified] Onset: 10-05-2023 Episodic Residual codes; unclassified (1 source) Family history of malignant melanoma; Translations: [Family history of malignant neoplasm of other organs or systems] 05-23-2024 Episodic Residual codes; unclassified (1 source) Family history of malignant neoplasm of kidney; Translations: [Family history of malignant neoplasm of kidney] 05-23-2024 Episodic Residual codes; unclassified (1 source) Family history of malignant neoplasm of lung; Translations: [Family history of malignant neoplasm of trachea, bronchus and lung] 05-23-2024 Episodic Residual codes; unclassified (1 source) Family history of malignant neoplasm of other organs or systems; Translations: [Family history of malignant neoplasm of other organs or systems] Onset: 05-23-2024 Episodic Residual codes; unclassified (1 source) Family history of malignant neoplasm of kidney; Translations: [Family history of malignant neoplasm of kidney] Onset: 05-23-2024 Episodic Residual codes; unclassified (1 source) Family history of malignant neoplasm of trachea, bronchus and lung; Translations: [Family history of malignant neoplasm of trachea, bronchus and lung] Onset: 05-23-2024 Episodic Residual codes; unclassified (4 sources) Amnesia; Translations: [Other amnesia] Onset: 04-13-2024 04-13-2024 Episodic Thyroid disorders (3 sources) Hypothyroidism; Translations: [Hypothyroidism, unspecified] 07-14-2022 Chronic Unclassified (1 source) Post-op Onset: 11-08-2023 Unclassified (1 source) Cholelithiasis Onset: 10-12-2023 Past or Other Problems Problem Classification Problem Date Documented Da te Episodic/Chronic E Codes: Fall (1 source) Fall on same level from slipping, tripping and stumbling with subsequent striking against unspecified object, initial encounter; Translations: [FALL SAME LVL SLIP STRK UNS OBJ INT] Onset: 09-18-2022 Episodic Other aftercare (1 source) [facility] (current) use of aspirin; Translations: [ALF CURRENT USE OF ASPIRIN] Onset: 09-18-2022 Episodic Other aftercare (1 source) rat exterminator (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) use of insulin; Translations: [ALF CURRENT USE OF INSULIN] Onset: 09-18-2022 Episodic Other aftercare (1 source) Other terminal press operator (current) drug therapy; Translations: [OTH ALF CURRENT DRUG THERAPY] Onset: 09-18-2022 Episodic Other [...] trimester] Onset: 07-31-2022 Episodic Other complications of (8 sources) Abnormal glucose tolerance in mother complicating , childbirth AND/OR puerperium; Translations: [Other specified related conditions, unspecified trimester] Onset: 11-10-2022 11-10-2022 Episodic Other complications of (4 sources) Edema; Translations: [Gestational edema, third trimester] [...] Test Name Value Interpretation Reference Range Facility No Panel Informationon 06-23 Lesion length (cm): 0.8 Lesion width (cm): 0.8 Margin per side (cm): 0.3 Total excision diameter (cm): 1.4 Informed consent: discussed and consent obtained Informed consent comment: Risks and possible complications were discussed as noted on the consent form. The consent form was signed prior to the procedure. Timeout: patient name, date of , surgical site, and procedure verified Timeout comment: Patient and provider identified site. Site was marked and excision was drawn out. Photo was taken and shown to patient, patient verified this is the correct site. Procedure prep: Patient was prepped and draped in usual sterile fashion (The planned incision lines were drawn along relaxed skin tension lines, if possible, to minimize scarring and deformity of surrounding structures.) Prep type: Chlorhexidine Anesthesia: the lesion was anesthetized in a standard fashion Anesthesia comment: The local anesthetic was injected to create a field block at the site of the procedure. Anesthetic: 1% lidocaine w/ epinephrine 1-100,000 buffered w/ 8.4% NaHCO3 Instrument used: #15 blade Instrument used comment: Incisions were made as drawn, and the surrounding tissue was undermined until the skin edges could be approximated without undue tension. Any tissue redundancies were removed. Hemostasis achieved with: suture and electrodesiccation Additional details: Amount of lidocaine used: 12.0 ml Estimated blood loss: <1.[facility] ml [facility] Complexity: Intermediate Final length (cm): 5 Reason for type of repair: reduce tension to allow closure and allow closure of the large defect Undermining: edges undermined Undermining comment: The surrounding tissue was undermined until the skin edges could be approximated without undue tension. Any tissue redundancies were removed. Subcutaneous layers (deep stitches): Suture size: 3-0 Suture type comment: Biosyn Stitches: Buried horizontal mattress (Closure was performed in a layered fashion with subcutaneous tissue closed first using tension-bearing absorbable sutures to the level of the superficial fascia.) Fine/surface layer approximation (top stitches): Suture size: 4-0 Suture type: Prolene (polypropylene) Stitches: simple running Stitches comment: Epicuticular skin sutures were then placed with minimal tension. Suture removal (days): 14 Outcome: patient tolerated procedure well with no complications Post-procedure details: sterile dressing applied and wound care instructions given Post-procedure details comment: It was emphasized to the patient to contact the office for any signs of infection, uncontrollable bleeding, or complications. Dressing type: pressure dressing [facility] MR STERNOCLAVICULAR JOINT LE FT W AND WO CONTRASTon 06-09-2024 MR STERNOCLAVICULAR JOINT LEFT W AND WO CONTRAST MR STERNOCLAVICULAR JOINT LEFT W AND WO CONTRAST HISTORY: pain over left Supraclavicluar joint, 1st rib TECHNIQUE: Routine MRI of the left sternoclavicular joint, with and without contrast. Given 10 mL of intravenous Vueway. COMPARISON: CT 05/05/2024. Radiographs 05/01/2024. RESULT: There is bone marrow edema at the left sternoclavicular joint with increased T2/STIR signal, decreased T1 signal, and associated enhancement after contrast involving the clavicle at the AC joint and also a small portion of the sternum. There appears to be a small left sternoclavicular joint effusion, and there is also some adjacent pericapsular enhancement anterior to the joint. Right SC joint grossly unremarkable. Visualized musculature unremarkable. Lung grossly clear. Other subcutaneous tissues grossly unremarkable. IMPRESSION: Bone marrow edema centered at the left sternoclavicular joint with pericapsular edema, and probable small joint effusion. Findings are nonspecific but are concerning for infectious process. Differential also includes inflammatory processes such as rheumatoid arthritis. Findings could possibly be posttraumatic if there is a history of recent injury. Recommend clinical correlation, and could consider correlation with joint aspiration. ELECTRONICALLY SIGNED BY: Roman Nguyen MD Normal Not Available Comment on above: Order Comment: MRI w ith and without supraclavicular joint. ATTENTION 1ST RIB. NOMS CT SHOULDER LEFT WO IV CONTR Jhon 05-05-2024 CT SHOULDER LEFT WO IV CONTRAST Exam: CT - CT LT SHOULDER WO CONTRAST Clinical History: Left clavicular pain for two to three months, pain radiates into shoulder Reference Exam: x-ray TECHNIQUE: Axial imaging is provided. Sagittal/coronal computerized reconstructions were then generated. No IV contrast. FINDINGS: The left sternoclavicular joint and AC joint are located. The left glenohumeral joint is intact. No acute fracture or other bony lesion. No permeative osteolytic focus. Proximal left humeral diaphysis unremarkable. Type II acromion process morphology. No axillary pathology. No mass or adenopathy. Heterogeneous parenchymal left breast tissue. No pneumothorax. No rib fracture. No rib lesion. IMPRESSION: 1. No acute abnormality of the left clavicle. 2. No acute osseous, articular, or definitive soft tissue pathology is identified regional to the left clavicle/shoulder. 3. If indicated, further analysis with MRI is available. Dictated on: 05/05/2024 2:37 PM This report has been electronically signed and approved by the interpreting Radiologist. Electronically Signed Jonathan Livingston M.D. 2024-05-05 14:39:27 Normal Not Available HCG ( test) Ql (U)o n 10-25-2023 Beta HCG ( test) Ql (U) Negative Normal NEG [facility] Comment on above: Performed By: #### 2 106-3 #### [facility] ([id number]) [address] [place] [address], [place] [address] Surgical Pathologyon 024 Surgical Pathology Normal [facility] Comment on above: Result Comment: [facility] [address] [place] [address] Surgical Pathology Consultation Patient Name:PAM LAST:1990 (Age: 33)Gender:FTaken:4Reported:10/28/2023hysician(s):Wilfred Medeiros MD ([phone])Copy To: Rec. #:[id number]: #[id number] Final Pathologic Diagnosis Gallbladder (1 H&E): Mild chronic cholecystitis. Cholesterolosis. Report Electronically Signed Out gp/10/28/2023Sherron Jefferson MD Interpretation performed at [facility], [address] [place] [address], License number: [id number]. Clinical History Biliary colic. Gross Description Received in formalin labeled SHALA, gallbladder is an intact gallbladder, 7.0 x [...] hemorrhagic and entirely surfaced by yellow flecks. Logistics Center Manager sections are submitted in a single cassette to include the shaved cystic duct, a food service representative section of the gallbladder neck body and fundus. (1,ss,[id number], m6) GK gvm/10/25/2023O Microscopic Findings Microscopic examination performed. Specimen(s) Received Gallbladder Fee Codes(s): 1; 16646 BASIC METABOLIC PANLon 10-15 Anion gap [Moles/Vol] 9 mmol/L Normal 5-15 [facility] Comment on above: Performed By: #### B MP #### [facility] ([id number]) [address] [place] [address] Calcium [Mass/Vol] 9.4 mg/dL Normal 8.5-10.5 [facility] Comment on above: Performed By: #### B MP #### [facility] ([id number]) [address] [place] [address] Chloride [Moles/Vol] 104 mmol/L Normal 98-109 [facility] Comment on above: Performed By: #### B MP #### [facility] ([id number]) [address] [place] [address] CO2 [Moles/Vol] 27 mmol/L Normal 22-32 [facility] Comment on above: Performed By: #### B MP #### [facility] ([id number]) [address] [place] [address] Creatinine [Mass/Vol] 0.68 mg/dL Normal 0.40-1.00 [facility] Comment on above: Result Comment: METH OD TRACEABLE TO IDMS STANDARD Performed By: #### B MP #### [facility] ([id number]) [address] [place] [address] eGFR (CKD-EPI) NON-RACE DEPENDENT >90 Normal >59 [facility] Comment on above: Result Comment: Reported eGFR is based on the CKD-EPI 2020 equation that does not use a race coefficient. Performed By: #### B MP #### [facility] ([id number]) [address] [place] [address] Glucose [Mass/Vol] 118 mg/dL High 65-99 [facility] Comment on above: Performed By: #### B MP #### [facility] ([id number]) [address] [place] [address] Potassium [Moles/Vol] 3.8 mmol/L Normal 3.5-5.0 [facility] Comment on above: Performed By: #### B MP #### [facility] ([id number]) [address] [place] [address] Sodium [Moles/Vol] 140 mmol/L Normal 134-146 [facility] Comment on above: Performed By: #### B MP #### [facility] ([id number]) [address] [place] [address] Urea nitrogen [Mass/Vol] 10 mg/dL Normal 5-23 [facility] Comment on above: Performed By: #### B MP #### [facility] ([id number]) [address], [address] [place] [address] Basic Metabolic Panelon 09-21 Anion gap [Moles/Vol] 9 mmol/L 5 - 15 mmol/L [facility] Calcium [Mass/Vol] 9.4 mg/dL 8.5 - 10. 5 mg/dL [facility] Chloride [Moles/Vol] 104 mmol/L 98 - 10 9 mmol/L [facility] CO2 [Moles/Vol] 27 mmol/L 22 - 32 mmol/L [facility] Creatinine [Mass/Vol] 0.68 mg/dL 0.40 - 1.00 mg/dL [facility] Comment on above: METHOD TRACEABLE TO IDMS STANDARD eGFR (CKD-EPI)non-race dependent - PINF [facility] Comment on above: Reported eGFR is based on the CKD-EPI 2020 equation that does not use a race coefficient. Glucose [Mass/Vol] 118 mg/dL High 65 - 99 mg/dL [facility] Interpretation and review of laboratory results Abnormal [facility] Potassium [Moles/Vol] 3.8 mmol/L 3.5 - 5.0 mmol/L [facility] Sodium [Moles/Vol] 140 mmol/L 134 - 146 mmol/L [facility] Urea nitrogen [Mass/Vol] 10 mg/dL 5 - 23 mg/dL [facility] 12 leadon 10-15-2023 TRACEMASTERVUE [facility] CBC AUTO DIFFon 01-21-2023 BASO # 0.1 103/ul Normal 0.0-0.1 [facility] Comment on above: Performed By: #### C BC #### [facility] [address] [place] [address] Dr. Debby Mota Basophils/100 WBC (Bld) 0.5 % Normal 0.2-2.0 [facility] Comment on above: Performed By: #### C BC #### [facility] [address] [place] [address] Dr. Debby Mota EO # 0.1 103/ul Normal 0.0-0.7 [facility] Comment on above: Performed By: #### C BC #### [facility] [address] [place] [address] Dr. Debby Mota Eosinophils/100 WBC (Bld) 0.6 % Critically low 0.9-7.0 [facility] Comment on above: Performed By: #### C BC #### [facility] [address] [place] [address] Dr. Debby Mota Erythrocyte distribution width (RBC) [Ratio] 15.8 % Critically high 11.0-15.0 [facility] Comment on above: Performed By: #### C BC #### [facility] [address] [place] [address] Dr. Debby Mota Hematocrit (Bld) [Volume fraction] 34.9 % Critically low 36.0-48.0 [facility] Comment on above: Performed By: #### C BC #### [facility] [address] [place] [address] Dr. Debby Mota Hemoglobin (Bld) [Mass/Vol] 10.8 g/dL Critically low 12.0-16.0 [facility] Comment on above: Performed By: #### C BC #### [facility] [address] [address] [address] Debby Mota IG # 0.24 10e3/ul Critically high 0.00-0.03 [facility] Comment on above: Performed By: #### C BC #### [facility] [address] [address] [address] Debby Mota IG % 1.7 % Critically high 0.0-0.5 [facility] Comment on above: Performed By: #### C BC #### [facility] [address] [place] [address] Dr. Debby Mtoa LYMPH # 2.4 103/ul Normal 1.2-3.8 [facility] Comment on above: Performed By: #### C BC #### [facility] [address] [place] [address] Dr. Debby Mota Lymphocytes/100 WBC (Bld) 16.8 % Critically low 20.5-60.0 [facility] Comment on above: Performed By: #### C BC #### [facility] [address] [place] [address] Dr. Debby Mota MANUAL DIFF REQ NO Normal [facility] Comment on above: Performed By: #### C BC #### [facility] [address] [address] [address] Debby Mota MCH (RBC) [Entitic mass] 24.9 pg Critically low 26.7-34.0 [facility] Comment on above: Performed By: #### C BC #### [facility] [address] [place] [address] Dr. Debby Mota MCHC (RBC) [Mass/Vol] 30.9 g/dL Normal 29.9-35.2 [facility] Comment on above: Performed By: #### C BC #### [facility] [address] [place] [address] Dr. Debby Mota MCV (RBC) [Entitic vol] 80.6 fL Critically low 81.0-99.0 [facility] Comment on above: Performed By: #### C BC #### [facility] [address] [place] [address] Dr. Debby Mota MONO # 0.8 103/ul Normal 0.3-0.8 [facility] Comment on above: Performed By: #### C BC #### [facility] [address] [place] [address] Dr. Debby Mota Monocytes/100 WBC (Bld) 5.8 % Normal 1.7-12.0 [facility] Comment on above: Performed By: #### C BC #### [facility] [address] [place] [address] Dr. Debby Mota NEUT # 10.6 103/ul Critically high 1.4-6.5 [facility] Comment on above: Performed By: #### C BC #### [facility] [address] [place] [address] Dr. Debby Mota Neutrophils/100 WBC (Bld) 74.6 % Normal 43.0-75.0 [facility] Comment on above: Performed By: #### C BC #### [facility] [address] [place] [address] Dr. Debby Mota Platelet mean volume (Bld) [Entitic vol] 9.8 fL Normal 9.5-13.5 [facility] Comment on above: Performed By: #### C BC #### [facility] [address] [place] [address] Dr. Debby Mota PLT 319 103/ul Normal 150-450 [facility] Comment on above: Performed By: #### C BC #### [facility] [address] [place] [address] Dr. Debby Mota RBC 4.33 106/ul Normal 4.20-5.40 [facility] Comment on above: Performed By: #### C BC #### [facility] [address] [place] [address] Dr. Debby Mota WBC 14.2 103/ul Critically high 4.0-11.0 [facility] Comment on above: Performed By: #### C BC #### [facility] [address] [place] [address] Dr. Debby Mota CBC AUTO DIFFon 01-20-2023 BASO # 0.1 103/ul Normal 0.0-0.1 [facility] Comment on above: Performed By: #### U MICRO, UACSIND #### [facility] [address] [place] [address] Dr. Debby Mota Basophils/100 WBC (Bld) 0.5 % Normal 0.2-2.0 [facility] Comment on above: Performed By: #### U MICRO, UACSIND #### [facility] [address] [place] [address] Dr. Debby Mota EO # 0.1 103/ul Normal 0.0-0.7 [facility] Comment on above: Performed By: #### U MICRO, UACSIND #### [facility] [address] [place] [address] Dr. Debby Mota Eosinophils/100 WBC (Bld) 0.4 % Critically low 0.9-7.0 [facility] Comment on above: Performed By: #### U MICRO, UACSIND #### [facility] [address] [place] [address] Dr. Debby Mota Erythrocyte distribution width (RBC) [Ratio] 15.6 % Critically high 11.0-15.0 [facility] Comment on above: Performed By: #### U MICRO, UACSIND #### [facility] [address] [place] [address] Dr. Debby Mota Hematocrit (Bld) [Volume fraction] 33.9 % Critically low 36.0-48.0 [facility] Comment on above: Performed By: #### U MICRO, UACSIND #### [facility] [address] [place] [address] Dr. Debby Mota Hemoglobin (Bld) [Mass/Vol] 11.0 g/dL Critically low 12.0-16.0 [facility] Comment on above: Performed By: #### U MICRO, UACSIND #### [facility] [address] [address] [address] Debby Mota IG # 0.29 10e3/ul Critically high 0.00-0.03 [facility] Comment on above: Performed By: #### U MICRO, UACSIND #### [facility] [address] [address] [address] Debby Mota IG % 2.0 % Critically high 0.0-0.5 [facility] Comment on above: Performed By: #### U MICRO, UACSIND #### [facility] [address] [address] [address] Debby Mota LYMPH # 1.8 103/ul Normal 1.2-3.8 [facility] Comment on above: Performed By: #### U MICRO, UACSIND #### [facility] [address] [place] [address] Dr. Debby Mota Lymphocytes/100 WBC (Bld) 12.5 % Critically low 20.5-60.0 [facility] Comment on above: Performed By: #### U MICRO, UACSIND #### [facility] [address] [address] [address] Debby Mota MANUAL DIFF REQ NO Normal [facility] Comment on above: Performed By: #### U MICRO, UACSIND #### [facility] [address] [place] [address] Dr. Debby Mota MCH (RBC) [Entitic mass] 25.3 pg Critically low 26.7-34.0 [facility] Comment on above: Performed By: #### U MICRO, UACSIND #### [facility] [address] [address] [address] Debby Mota MCHC (RBC) [Mass/Vol] 32.4 g/dL Normal 29.9-35.2 [facility] Comment on above: Performed By: #### U MICRO, UACSIND #### [facility] [address] [place] [address] Dr. Debby Mota MCV (RBC) [Entitic vol] 78.1 fL Critically low 81.0-99.0 [facility] Comment on above: Performed By: #### U MICRO, UACSIND #### [facility] [address] [address] [address] Debby Mota MONO # 0.7 103/ul Normal 0.3-0.8 [facility] Comment on above: Performed By: #### U MICRO, UACSIND #### [facility] [address] [place] [address] Dr. Debby Mota Monocytes/100 WBC (Bld) 4.8 % Normal 1.7-12.0 [facility] Comment on above: Performed By: #### U MICRO, UACSIND #### [facility] [address] [place] [address] Dr. Debby Mota NEUT # 11.4 103/ul Critically high 1.4-6.5 [facility] Comment on above: Performed By: #### U MICRO, UACSIND #### [facility] [address] [place] [address] Dr. Debby Mota Neutrophils/100 WBC (Bld) 79.8 % Critically high 43.0-75.0 [facility] Comment on above: Performed By: #### U MICRO, UACSIND #### [facility] [address] [place] [address] Dr. Debby Mota Platelet mean volume (Bld) [Entitic vol] 9.7 fL Normal 9.5-13.5 [facility] Comment on above: Performed By: #### U MICRO, UACSIND #### [facility] [address] [place] [address] Dr. Debby Mota PLT 282 103/ul Normal 150-450 [facility] Comment on above: Performed By: #### U MICRO, UACSIND #### [facility] [address] [place] [address] Dr. Debby Mota RBC 4.34 106/ul Normal 4.20-5.40 [facility] Comment on above: Performed By: #### U MICRO, UACSIND #### [facility] [address] [place] [address] Dr. Debby Mota WBC 14.3 103/ul Critically high 4.0-11.0 [facility] Comment on above: Performed By: #### U MICRO, UACSIND #### [facility] [address] [address] [address] Debby Mota DRUG SCREEN RAPID (URINE)on 01-20-2023 AMP Negative Normal NEGATIVE [facility] Comment on above: Performed By: #### U MICRO, UACSIND #### [facility] [address] [address] [address] Debby Mota BAR Negative Normal NEGATIVE [facility] Comment on above: Performed By: #### U MICRO, UACSIND #### [facility] [address] [address] [address] Debby Mota BUP Negative Normal NEGATIVE [facility] Comment on above: Performed By: #### U MICRO, UACSIND #### [facility] [address] [place] [address] Dr. Debby Mota BZO Negative Normal NEGATIVE [facility] Comment on above: Performed By: #### U MICRO, UACSIND #### [facility] [address] [address] [address] Debby Mota LINCOLN Negative Normal NEGATIVE [facility] Comment on above: Performed By: #### U MICRO, UACSIND #### [facility] [address] [place] [address] Dr. Debby Mota CUT-OFFS SEE BELOW Normal [facility] Comment on above: Result Comment: AMP (Amphetamine): [...] Performed By: #### U MICRO, UACSIND #### [facility] [address] [address] [address] Debby Mota DRUG CUT HEADER DRUG CLASS TEST SYSTEM CUT-OFF CONCENTRATIONS ARE FOLLOWS: Normal [facility] Comment on above: Performed By: #### U MICRO, UACSIND #### [facility] [address] [address] [address] Debby Mota mAMP Negative Normal NEGATIVE [facility] Comment on above: Performed By: #### U MICRO, UACSIND #### [facility] [address] [address] [address] Debby Mota MTD Negative Normal NEGATIVE [facility] Comment on above: Performed By: #### U MICRO, UACSIND #### [facility] [address] [address] [address] Debby Mota OPI Negative Normal NEGATIVE [facility] Comment on above: Performed By: #### U MICRO, UACSIND #### [facility] [address] [address] [address] Debby Mota OXY Negative Normal NEGATIVE [facility] Comment on above: Performed By: #### U MICRO, UACSIND #### [facility] [address] [address] [address] Debby Mota PCP Negative Normal NEGATIVE [facility] Comment on above: Performed By: #### U MICRO, UACSIND #### [facility] [address] [place] [address] Dr. Debby Mota PPX Negative Normal NEGATIVE [facility] Comment on above: Performed By: #### U MICRO, UACSIND #### [facility] [address] [address] [address] Debby Mota TCA Negative Normal NEGATIVE [facility] Comment on above: Performed By: #### U MICRO, UACSIND #### [facility] [address] [address] [address] Debby Mota THC Negative Normal NEGATIVE [facility] Comment on above: Performed By: #### U MICRO, UACSIND #### [facility] [address] [address] [address] Debby Mota LDHon 01-20-2023 LDH 149 U/L Normal 81-234 [facility] Comment on above: Performed By: #### U MICRO, UACSIND #### [facility] [address] [address] [address] Debby Mota PROF 14(COMP METB)on 023 Albumin [Mass/Vol] 2.2 g/dL Critically low 3.4-5.0 [facility] Comment on above: Performed By: #### U MICRO, UACSIND #### [facility] [address] [address] [address] Debby Mota Albumin/Globulin [Mass ratio] 0.5 {ratio} Normal [facility] Comment on above: Performed By: #### U MICRO, UACSIND #### [facility] [address] [place] [address] Dr. Debby Mota ALP [Catalytic activity/Vol] 107 U/L Normal 46-116 [facility] Comment on above: Performed By: #### U MICRO, UACSIND #### [facility] [address] [place] [address] Dr. Debby Mota ALT [Catalytic activity/Vol] 17 U/L Normal 14-59 [facility] Comment on above: Performed By: #### U MICRO, UACSIND #### [facility] [address] [address] [address] Debby Mota Anion gap [Moles/Vol] 12.5 mmol/L Normal [facility] Comment on above: Performed By: #### U MICRO, UACSIND #### [facility] [address] [address] [address] Debby Mota AST [Catalytic activity/Vol] 19 U/L Normal 15-37 [facility] Comment on above: Performed By: #### U MICRO, UACSIND #### [facility] [address] [place] [address] Dr. Debby Mota Bilirubin [Mass/Vol] 0.4 mg/dL Normal 0.2-1.0 [facility] Comment on above: Performed By: #### U MICRO, UACSIND #### [facility] [address] [address] [address] Debby Mota Calcium [Mass/Vol] 9.4 mg/dL Normal 8.5-10.1 [facility] Comment on above: Performed By: #### U MICRO, UACSIND #### [facility] [address] [address] [address] Debby Mota Chloride [Moles/Vol] 105 mmol/L Normal 98-107 [facility] Comment on above: Performed By: #### U MICRO, UACSIND #### [facility] [address] [address] [address] Debby Mota CO2 [Moles/Vol] 24.1 mmol/L Normal 21.0-32.0 [facility] Comment on above: Performed By: #### U MICRO, UACSIND #### [facility] [address] [address] [address] Debby Mota Creatinine [Mass/Vol] 0.52 mg/dL Critically low 0.55-1.02 [facility] Comment on above: Performed By: #### U MICRO, UACSIND #### [facility] [address] [address] [address] Debby Mota EGFR-AF ICELANDIC >60 Normal >=60 [facility] Comment on above: Performed By: #### U MICRO, UACSIND #### [facility] [address] [address] [address] Debby Mota EGFR-NON AF ICELANDIC >60 Normal >=60 [facility] Comment on above: Performed By: #### U MICRO, UACSIND #### [facility] [address] [address] [address] Debby Mota Globulin (S) [Mass/Vol] 4.6 g/dL Normal [facility] Comment on above: Performed By: #### U MICRO, UACSIND #### [facility] [address] [address] [address] Debby Mota Glucose [Mass/Vol] 103 mg/dL Normal 74-106 [facility] Comment on above: Performed By: #### U MICRO, UACSIND #### [facility] [address] [address] [address] Debby Mota Potassium [Moles/Vol] 3.6 mmol/L Normal 3.5-5.1 [facility] Comment on above: Performed By: #### U MICRO, UACSIND #### [facility] [address] [address] [address] Debby Mota Protein [Mass/Vol] 6.8 g/dL Normal 6.4-8.2 [facility] Comment on above: Performed By: #### U MICRO, UACSIND #### [facility] [address] [address] [address] Debby Mota Sodium [Moles/Vol] 138 mmol/L Normal 136-145 [facility] Comment on above: Performed By: #### U MICRO, UACSIND #### [facility] [address] [address] [address] Debby Mota Urea nitrogen [Mass/Vol] 5.0 mg/dL Critically low 7.0-18.0 [facility] Comment on above: Performed By: #### U MICRO, UACSIND #### [facility] [address] [address] [address] Debby Mota Urea nitrogen/Creatinine [Mass ratio] 9.6 mg/mg Normal [facility] Comment on above: Performed By: #### U MICRO, UACSIND #### [facility] [address] [address] [address] Debby Mota PROTIMEon 01-20-2023 INR Coag (PPP) [Relative time] {INR} Normal [facility] Comment on above: Performed By: #### P T, PTT #### [facility] [address] [address] [address] Debby Mota INR GUIDELINES SEE BELOW Normal [facility] Comment on above: Result Comment: GAVIN RED INR: 2.0 - 3.0 CONDITIONS NOT LISTED BELOW 2.5 - 3.5 FOR PROSTHETIC HEART VALVE REPLACEMENT 2.5 - 3.5 RECURRENT THROMBOSIS Performed By: #### P T, PTT #### [facility] [address] [place] [address] Dr. Debby Mota PT Coag (PPP) [Time] 9.8 s Normal 9.0-11.6 [facility] Comment on above: Performed By: #### P T, PTT #### [facility] [address] [place] [address] Dr. Debby Mota PTTon 01-20-2023 aPTT Coag (Bld) [Time] 27.1 s Normal 22.3-36.2 [facility] Comment on above: Performed By: #### P T, PTT #### [facility] [address] [place] [address] Dr. Debby Mota TYPE AND SCREENon 01-20-2023 TYPE AND SCREEN Negative Normal [facility] Comment on above: Performed By: #### U MICRO, UACSIND #### [facility] [address] [place] [address] Dr. Debby Mota UA (CLEAN/CATCH) EFFICIENCY ANALYST/MICRO I F IND.on 01-20-2023 Bilirubin Ql (U) Negative Normal NEGATIVE [facility] Comment on above: Performed By: #### U MICRO, UACSIND #### [facility] [address] [place] [address] Dr. Debby Mota Clarity (U) CLEAR Normal CLEAR [facility] Comment on above: Performed By: #### U MICRO, UACSIND #### [facility] [address] [place] [address] Dr. Debby Mota Color (U) LT. YELLOW Normal YELLOW [facility] Comment on above: Performed By: #### U MICRO, UACSIND #### [facility] [address] [place] [address] Dr. Debby Mota Glucose Ql (U) Negative Normal NEGATIVE [facility] Comment on above: Performed By: #### U MICRO, UACSIND #### [facility] [address] [place] [address] Dr. Debby Mota Hemoglobin Ql (U) TRACE-INTACT Abnormal NEGATIVE [facility] Comment on above: Performed By: #### U MICRO, UACSIND #### [facility] [address] [address] [address] Debby Mota Ketones Ql (U) Negative Normal NEGATIVE [facility] Comment on above: Performed By: #### U MICRO, UACSIND #### [facility] [address] [place] [address] Dr. Debby Mota LEUKOCYTES Negative Normal NEGATIVE [facility] Comment on above: Performed By: #### U MICRO, UACSIND #### [facility] [address] [address] [address] Debby Mota Nitrite Ql (U) Negative Normal NEGATIVE The [facility] Comment on above: Performed By: #### U MICRO, UACSIND #### [facility] [address] [place] [address] Dr. Debby Mota pH (U) 7.0 [pH] Normal 5-9 [facility] Comment on above: Performed By: #### U MICRO, UACSIND #### [facility] [address] [place] [address] Dr. Debby Mota SPEC GRAVITY 1.010 Normal 1.005-<=1.0 25 [facility] Comment on above: Performed By: #### U MICRO, UACSIND #### [facility] [address] [place] [address] Dr. Debby Mota UA PROTEIN 30 mg/dl Abnormal NEGATIVE/ TRACE The [facility] Comment on above: Performed By: #### U MICRO, UACSIND #### [facility] [address] [address] [address] Debby Mota UR MICRO IND INDICATED Normal The [facility] Comment on above: Performed By: #### U MICRO, UACSIND #### [facility] [address] [address] [address] Debby Mota Urobilinogen Qn (U) 0.2 {Terrance'U}/dL Normal 0.2 - 1. 0 [facility] Comment on above: Performed By: #### U MICRO, UACSIND #### [facility] [address] [place] [address] Dr. Debby Mota URIC ACID SERUMon 01-20-2023 Urate [Mass/Vol] 3.7 mg/dL Normal 2.6-6.0 [facility] Comment on above: Performed By: #### U MICRO, UACSIND #### [facility] [address] [place] [address] Dr. Debby Mota URINE MICROSCOPIC ONLYon BACTERIA NONE SEEN Normal NONE SEEN The [facility] Comment on above: Performed By: #### U MICRO, UACSIND #### [facility] [address] [place] [address] Dr. Debby Mota Bacteria identified Cx Nom (U) NOT INDICATED Normal The [facility] Comment on above: Performed By: #### U MICRO, UACSIND #### [facility] [address] [place] [address] Dr. Debby Mota CAST NONE SEEN Normal NONE SEEN [facility] Comment on above: Performed By: #### U MICRO, UACSIND #### [facility] [address] [place] [address] Dr. Debby Mota Crystals LM Nom (Urine sed) NONE SEEN Normal NONE SEEN The [facility] Comment on above: Performed By: #### U MICRO, UACSIND #### [facility] [address] [place] [address] Dr. Debby Mota Epithelial cells LM Ql (Urine sed) FEW Abnormal NONE SEEN /RARE The [facility] Comment on above: Performed By: #### U MICRO, UACSIND #### [facility] [address] [place] [address] Dr. Debby Mota MUCOUS NONE SEEN Normal NONE SEEN The [facility] Comment on above: Performed By: #### U MICRO, UACSIND #### [facility] [address] [place] [address] Dr. Debby Mota RBC 0-2 Normal 0-2 [facility] Comment on above: Performed By: #### U MICRO, UACSIND #### [facility] [address] [place] [address] Dr. Debby Mota WBC 0-2 Abnormal NONE SEEN The [facility] Comment on above: Performed By: #### U MICRO, UACSIND #### [facility] [address] [address] [address] Debby Mota US PREG BIOPHY W [...] JUAN JOSE MATIAS Date: 2023-01-12 17:02 Normal [facility] US PREG BIOPHY W NON STRESSo [...] JOSE MATIAS Date: 2023-01-05 16:32 Normal [facility] B-HYDROXYBUTYRATEon 12-30-19 23 B-HYDROXYBUTYRATE 0.9 mg/dL Normal [facility] Comment on above: Result Comment: Refe rence Range: All Ages (fasting): 0.2 - 2.8 Performed By: #### B HYDROX #### [facility] [address] [address] [address] Debby Mota PREG BIOPHY W NON STRESSo n 12-29-2022 [...] JUAN JOSE MATIAS Date: 2022-12-29 16:42 Normal [facility] GLYCOHEMOGLOBIN A1Con 2022 ADA RECOMMENDATION SEE BELOW Normal [facility] Comment on above: Result Comment: ADA RECOMMENDED LIMIT 4.0 - 6.0 ADA THERAPEUTIC TARGET < 7.0 ACTION SUGGESTED > 7.0 Performed By: #### A 1C #### [facility] [address] [place] [address] Dr. Debby Mota Glucose [Mass/Vol] 126 mg/dL Normal [facility] Comment on above: Performed By: #### A 1C #### [facility] [address] [place] [address] Dr. Debby Mota HbA1c (Bld) [Mass fraction] 6.0 % Normal 4.5-6.2 [facility] Comment on above: Performed By: #### A 1C #### [facility] [address] [place] [address] Dr. Debby Mota PROF 14(COMP METB)on 023 Albumin [Mass/Vol] 2.5 g/dL Critically low 3.4-5.0 Th [facility] Comment on above: Performed By: #### C MP #### [facility] [address] [place] [address] Dr. Debby Mota Albumin/Globulin [Mass ratio] 0.6 {ratio} Normal [facility] Comment on above: Performed By: #### C MP #### [facility] [address] [place] [address] Dr. Debby Mota ALP [Catalytic activity/Vol] 96 U/L Normal 46-116 [facility] Comment on above: Performed By: #### C MP #### [facility] [address] [place] [address] Dr. Debby Mota ALT [Catalytic activity/Vol] 16 U/L Normal 14-59 [facility] Comment on above: Performed By: #### C MP #### [facility] [address] [place] [address] Dr. Debby Mota Anion gap [Moles/Vol] 14.2 mmol/L Normal Th [facility] Comment on above: Performed By: #### C MP #### [facility] [address] [address] [address] Debby Mota AST [Catalytic activity/Vol] 12 U/L Critically low 15-37 [facility] Comment on above: Performed By: #### C MP #### [facility] [address] [address] [address] Debby Mota Bilirubin [Mass/Vol] 0.4 mg/dL Normal 0.2-1.0 [facility] Comment on above: Performed By: #### C MP #### [facility] [address] [address] [address] Debby Mota Calcium [Mass/Vol] 9.2 mg/dL Normal 8.5-10.1 [facility] Comment on above: Performed By: #### C MP #### [facility] [address] [address] [address] Debby Mota Chloride [Moles/Vol] 102 mmol/L Normal 98-107 [facility] Comment on above: Performed By: #### C MP #### [facility] [address] [address] [address] Debby Mota CO2 [Moles/Vol] 24.3 mmol/L Normal 21.0-32.0 [facility] Comment on above: Performed By: #### C MP #### [facility] [address] [address] [address] Debby Mota Creatinine [Mass/Vol] 0.44 mg/dL Critically low 0.55-1.02 [facility] Comment on above: Performed By: #### C MP #### [facility] [address] [address] [address] Debby Mota EGFR-AF ICELANDIC >60 Normal >=60 [facility] Comment on above: Performed By: #### C MP #### [facility] [address] [address] [address] Debby Mota EGFR-NON AF ICELANDIC >60 Normal >=60 [facility] Comment on above: Performed By: #### C MP #### [facility] [address] [address] [address] Debby Mota Globulin (S) [Mass/Vol] 4.5 g/dL Normal [facility] Comment on above: Performed By: #### C MP #### [facility] [address] [address] [address] Debby Mota Glucose [Mass/Vol] 136 mg/dL Critically high 74-106 [facility] Comment on above: Performed By: #### C MP #### [facility] [address] [address] [address] Debby Mota Potassium [Moles/Vol] 3.5 mmol/L Normal 3.5-5.1 [facility] Comment on above: Performed By: #### C MP #### [facility] [address] [address] [address] Debby Mota Protein [Mass/Vol] 7.0 g/dL Normal 6.4-8.2 [facility] Comment on above: Performed By: #### C MP #### [facility] [address] [address] [address] Debby Mota Sodium [Moles/Vol] 137 mmol/L Normal 136-145 [facility] Comment on above: Performed By: #### C MP #### [facility] [address] [address] [address] Debby Mota Urea nitrogen [Mass/Vol] 3.0 mg/dL Critically low 7.0-18.0 [facility] Comment on above: Performed By: #### C MP #### [facility] [address] [address] [address] Debby Mota Urea nitrogen/Creatinine [Mass ratio] 6.8 mg/mg Normal [facility] Comment on above: Performed By: #### C MP #### [facility] [address] [address] [address] Debby Mota URINE T PROTEIN CREAT RATIOo n 12-25-2022 Protein (U) [Mass/Vol] 16.6 mg/dL Critically high <=12.0 [facility] Comment on above: Performed By: #### U RTPCR #### [facility] [address] [address] [address] Debby Mota UR PROT CREAT RAT 0.32 Normal [facility] Comment on above: Performed By: #### U RTPCR #### [facility] [address] [address] [address] Debby Mota URINE CREAT 51.76 mg/dL Normal 20.00-300.0 0 [facility] Comment on above: Performed By: #### U RTPCR #### [facility] [address] [address] [address] Debby Mota US PREG BIOPHY W [...] by: ELVIN DELGADILLO Date: 2022-12-23 07:46 Normal [facility] US PREG BIOPHY W NON STRESSo [...] JUAN JOSE MATIAS Date: 2022-12-15 21:43 Normal [facility] US PREG BIOPHY W NON STRESSo [...] JUAN JOSE MATIAS Date: 2022-12-08 21:41 Normal [facility] US PREG PLACENTAon 2 US PREG PLACENTA EXAM: US PREG PLACENTA [...] intraplacental or retroplacental fluid to reflect placental hemorrhage/abruption . Recommend followup imaging if symptoms worsen or persist. Electronically authenticated by: ARACELIS HO Date: 2022-09-17 14:25 Normal [facility] XR WRIST LT MIN 3 Von 2021 XR WRIST LT MIN 3 V EXAM: XR WRIST LT MIN 3 V HISTORY: Pain COMPARISON: None. TECHNIQUE: 3 views FINDINGS: No osseous lesion, fracture, dislocation or subluxation. Joint spaces are normal. No visualized effusion. No visualized soft tissue edema. IMPRESSION: Normal x-rays Electronically authenticated by: ELVIN GUNN Date: 2022-09-17 15:15 Normal [facility] Basophils Auto (Bld) [#/Vol] Ordered By: Leeroy Collazo on 07-31-2022 Basophils (Bld) [#/Vol] 0.0 10*3/uL 0.0-0.2 [facility] Basophils/100 WBC Auto (Bld) Ordered By: Leeroy Collazo on 07-31-2022 Basophils/100 WBC (Bld) 0.5 % . [facility] Bilirubin Test strip Ql (U)O rdered By: Leeroy Collazo on 07-31-2022 Bilirubin Ql (U) Negative Negative [facility] Color Auto (U)Ordered By: Cristhian Collazo on 07-31-2022 Color (U) Yellow Yellow [facility] Creatinine and Glomerular fi ltration rate.predicted panel (S/P/Bld)Ordered By: Leeroy Collazo on 07-31-2022 Creatinine [Mass/Vol] 0.54 mg/dL 0.44-1.[address] [facility] Eosinophils Auto (Bld) [#/Vo l]Ordered By: Leeroy Collazo on 07-31-2022 Eosinophils (Bld) [#/Vol] 0.1 10*3/uL 0.0-0.45 [facility] Eosinophils/100 WBC Auto (Bl d)Ordered By: Leeroy Collazo on 07-31-2022 Eosinophils/100 WBC (Bld) 0.9 % . [facility] Erythrocyte distribution wid th Auto (RBC) [Ratio]Ordered By: Leeroy Collazo on 07-31-2022 Erythrocyte distribution width (RBC) [Ratio] 18.9 % 11.9-15.3 [facility] Estimated glomerular filtrat ion rate (GFR) non- AmericanOrdered By: Leeroy Collazo on 07-31-2022 GFR/1.73 sq M.predicted among non-blacks MDRD (S/P/Bld) [Vol rate/Area] > 60 mL/Min [facility] Hematocrit Auto (Bld) [Volum e fraction]Ordered By: Leeroy Collazo on 07-31-2022 Hematocrit (Bld) [Volume fraction] 38.6 % 34.0-46.4 [facility] Hemoglobin [Mass/volume] in BloodOrdered By: Leeroy Collazo on 07-31-2022 Hemoglobin (Bld) [Mass/Vol] 12.6 g/dL 11.8-15.4 [facility] Ketones Auto test strip (U) [Mass/Vol]Ordered By: Leeroy Collazo on 07-31-2022 Ketones (U) [Mass/Vol] Negative Negative [facility] Cell countsOrdered By: Leeroy Collazo on 07-31-2022 Nucleated RBC/100 WBC (Bld) [Ratio] 0.0 % 0-0.5 [facility] Leukocytes [#/volume] in Blo od by Automated countOrdered By: Leeroy Collazo on 07-31-2022 WBC (Bld) [#/Vol] 9.3 10*3/uL 4.5-11.0 [facility] Lymphocytes Auto (Bld) [#/Vo l]Ordered By: Leeroy Collazo on 07-31-2022 Lymphocytes (Bld) [#/Vol] 2.3 10*3/uL 1.00-4.8 [facility] Lymphocytes/100 WBC Auto (Bl d)Ordered By: Leeroy Collazo on 07-31-2022 Lymphocytes/100 WBC (Bld) 24.3 % . [facility] MCH Auto (RBC) [Entitic mass ]Ordered By: Leeroy Collazo on 07-31-2022 MCH (RBC) [Entitic mass] 26.5 pg 24.7-34.3 [facility] MCHC Auto (RBC) [Mass/Vol]Or dered By: Leeroy Collazo on 07-31-2022 MCHC (RBC) [Mass/Vol] 32.5 g/dL 32.0-35.[address] [facility] MCV Auto (RBC) [Entitic vol] Ordered By: Leeroy Collazo on 07-31-2022 MCV (RBC) [Entitic vol] 81.7 fL 80-100 [facility] Monocytes Auto (Bld) [#/Vol] Ordered By: Leeroy Collazo on 07-31-2022 Monocytes (Bld) [#/Vol] 0.4 10*3/uL 0.0-0.8 [facility] Monocytes/100 WBC Auto (Bld) Ordered By: Leeroy Collazo on 07-31-2022 Monocytes/100 WBC (Bld) 4.1 % . [facility] Neutrophils Auto (Bld) [#/Vo l]Ordered By: Leeroy Collazo on 07-31-2022 Neutrophils (Bld) [#/Vol] 6.5 10*3/uL 1.8-7.7 [facility] Neutrophils/100 WBC Auto (Bl d)Ordered By: Leeroy Collazo on 07-31-2022 Neutrophils/100 WBC (Bld) 70.2 % . [facility] Nitrite Test strip Ql (U)Ord ered By: Leeroy Collazo on 07-31-2022 Nitrite Ql (U) Negative Negative [facility] No Panel InformationOrdered By: Leeroy Collazo on 07-31-2022 Estimated GFR () > 60 mL/Min [facility] Comment on above: GFR estimated refere nce range: According to KDOQI guidelines, <60 ml/min/1.73m2 is sufficient to diagnose a patient with chronic kidney disease. Pharmacy Creatinine Clearance (Chem 210.08 [facility] Platelet mean volume Auto (B ld) [Entitic vol]Ordered By: Leeroy Collazo on 07-31-2022 Platelet mean volume (Bld) [Entitic vol] 7.5 fL 6.3-10.7 [facility] Platelets Auto (Bld) [#/Vol] Ordered By: Leeroy Collazo on 07-31-2022 Platelets (Bld) [#/Vol] 274 10*3/uL 150-450 [facility] Protein Auto test strip (U) [Mass/Vol]Ordered By: Leeroy Collazo on 07-31-2022 Protein (U) [Mass/Vol] Negative Negative Fi [facility] RBC Auto (Bld) [#/Vol]Ordere d By: Leeroy Collazo on 07-31-2022 RBC (Bld) [#/Vol] 4.73 10*6/uL 3.60-5.00 [facility] Serum or plasma anion gap de terminationOrdered By: Leeroy Collazo on 07-31-2022 Anion gap [Moles/Vol] 10.2 mmol/L 6.0-15.0 Fi [facility] Serum or plasma beta choriog onadotropin measurement (units/volume)Ordered By: Leeroy Collazo on 07-31-2022 [place] [address].00 m[IU]/mL [facility] Comment on above: Approximate Approxim ate hCG Gestational Age Range (mIU/ml) (weeks)0.2-1 5-50 1-2 50-500 2-3 100-5,000 3-4 500-10,000 4-5 1,000-50,000 5-6 10,000-100,000 6-8 15,000-200,000 8-12 10,000-100,000 Serum or plasma calcium harley urement (mass/volume)Ordered By: Leeroy Collazo on 07-31-2022 Calcium [Mass/Vol] 9.2 mg/dL 8.2-10.2 [facility] Serum or plasma chloride dominga surement (moles/volume)Ordered By: Leeroy Collazo on 07-31-2022 Chloride [Moles/Vol] 104 mmol/L 95-114 [facility] Serum or plasma glucose harley urement (mass/volume)Ordered By: Leeroy Collazo on 07-31-2022 Glucose [Mass/Vol] 148 mg/dL 70-100 [facility] Comment on above: ADA recommended refe rence rangeRandom Glucose Reference Range is dependent on time and content of last meal. Glucose of more than 200 mg/dL in a nonstressed, ambulatory subject supports the diagnosis of Diabetes Mellitus. Serum or plasma potassium me asurement (moles/volume)Ordered By: Leeroy Collazo on 07-31-2022 Potassium [Moles/Vol] 3.6 mmol/L 3.5-5.[address] [facility] Serum or plasma sodium measu rement (moles/volume)Ordered By: Leeroy Collazo on 07-31-2022 Sodium [Moles/Vol] 134 mmol/L 136-146 [facility] Serum or plasma total carbon dioxide measurement (moles/volume)Ordered By: Leeroy Collazo on 07-31-2022 CO2 [Moles/Vol] 23.4 mmol/L 22.0-30.0 [facility] Serum or plasma urea nitroge n measurement (mass/volume)Ordered By: Leeroy Collaoz 07-31-2022 Urea nitrogen [Mass/Vol] 5 mg/dL 9-23 [facility] Specific gravity Auto test s trip (U) [Rel density]Ordered By: Leeroy Collazo on 07-31-2022 Specific gravity (U) [Rel density] 1.014 1.001-1.030 [facility] Urine clarity by refractomet ry automatedOrdered By: Leeroy Collazo on 07-31-2022 Clarity Refractometry automated (U) Clear Clear [facility] Urine glucose measurement by automated test strip (mass/volume)Ordered By: Leeroy oCllazo on 07-31-2022 Glucose Auto test strip (U) [Mass/Vol] Normal mg/dL Normal [facility] Urine hemoglobin detection b y automated test stripOrdered By: Leeroy Collazo on 07-31-2022 Hemoglobin Auto test strip Ql (U) Negative Negative [facility] Urine leukocyte esterase det ection by automated test stripOrdered By: Leeroy Collazo on 07-31-2022 Leukocyte esterase Auto test strip Ql (U) Negative Negative [facility] Urobilinogen Auto test strip (U) [Mass/Vol]Ordered By: Leeroy Collazo on 07-31-2022 Urobilinogen (U) [Mass/Vol] Normal mg/dL Normal [facility] pH Auto test strip (U)Ordere d By: Leeroy Collazo on 07-31-2022 pH (U) 5.5 [pH] 5.0-9.0 [facility] Basophils Auto (Bld) [#/Vol] Ordered By: RENATO Black on 07-07-2022 Basophils (Bld) [#/Vol] 0.1 10*3/uL 0.0-0.2 [facility] Basophils/100 WBC Auto (Bld) Ordered By: RENATO Black on 07-07-2022 Basophils/100 WBC (Bld) 0.9 % . [facility] Eosinophils Auto (Bld) [#/Vo l]Ordered By: RENATO Black on 07-07-2022 Eosinophils (Bld) [#/Vol] 0.1 10*3/uL 0.0-0.45 [facility] Eosinophils/100 WBC Auto (Bl d)Ordered By: RENATO Black on 07-07-2022 Eosinophils/100 WBC (Bld) 0.8 % . [facility] Erythrocyte distribution wid th Auto (RBC) [Ratio]Ordered By: RENATO Black on 07-07-2022 Erythrocyte distribution width (RBC) [Ratio] 18.4 % 11.9-15.3 [facility] Hematocrit Auto (Bld) [Volum e fraction]Ordered By: RENATO Black on 07-07-2022 Hematocrit (Bld) [Volume fraction] 40.4 % 34.0-46.4 [facility] Hemoglobin [Mass/volume] in BloodOrdered By: RENATO Black on 07-07-2022 Hemoglobin (Bld) [Mass/Vol] 12.8 g/dL 11.8-15.4 [facility] - Hematology and Cell countsOrdered By: RENATO Black on 07-07-2022 Nucleated RBC/100 WBC (Bld) [Ratio] 0.1 % 0-0.5 [facility] Leukocytes [#/volume] in Blo od by Automated countOrdered By: RENATO Black on 07-07-2022 WBC (Bld) [#/Vol] 7.4 10*3/uL 4.5-11.0 [facility] Lymphocytes Auto (Bld) [#/Vo l]Ordered By: RENATO Black on 07-07-2022 Lymphocytes (Bld) [#/Vol] 2.1 10*3/uL 1.00-4.8 [facility] Lymphocytes/100 WBC Auto (Bl d)Ordered By: RENATO Black on 07-07-2022 Lymphocytes/100 WBC (Bld) 27.6 % . [facility] MCH Auto (RBC) [Entitic mass ]Ordered By: RENATO Black on 07-07-2022 MCH (RBC) [Entitic mass] 25.4 pg 24.7-34.3 [facility] MCHC Auto (RBC) [Mass/Vol]Or dered By: RENATO Black on 07-07-2022 MCHC (RBC) [Mass/Vol] 31.6 g/dL 32.0-35.[address] [facility] MCV Auto (RBC) [Entitic vol] Ordered By: RENATO Black on 07-07-2022 MCV (RBC) [Entitic vol] 80.5 fL 80-100 [facility] Monocytes Auto (Bld) [#/Vol] Ordered By: RENATO Black on 07-07-2022 Monocytes (Bld) [#/Vol] 0.3 10*3/uL 0.0-0.8 [facility] Monocytes/100 WBC Auto (Bld) Ordered By: RENATO Black on 07-07-2022 Monocytes/100 WBC (Bld) 4.4 % . [facility] Neutrophils Auto (Bld) [#/Vo l]Ordered By: RENATO Black on 07-07-2022 Neutrophils (Bld) [#/Vol] 4.9 10*3/uL 1.8-7.7 [facility] Neutrophils/100 WBC Auto (Bl d)Ordered By: RENATO Black on 07-07-2022 Neutrophils/100 WBC (Bld) 66.3 % . [facility] Platelet mean volume Auto (B ld) [Entitic vol]Ordered By: RENATO Black on 07-07-2022 Platelet mean volume (Bld) [Entitic vol] 7.4 fL 6.3-10.7 [facility] Platelets Auto (Bld) [#/Vol] Ordered By: RENATO Black on 07-07-2022 Platelets (Bld) [#/Vol] 291 10*3/uL 150-450 [facility] RBC Auto (Bld) [#/Vol]Ordere d By: RENATO Black on 07-07-2022 RBC (Bld) [#/Vol] 5.02 10*6/uL 3.60-5.00 [facility] Serum or plasma beta choriog onadotropin measurement (units/volume)Ordered By: RENATO Black on 06-19-2022 HCG.beta subunit Qn 412.41 m[IU]/mL [facility] Comment on above: Approximate Approxim ate hCG Gestational Age Range (mIU/ml) (weeks)0.2-1 5-50 1-2 50-500 2-3 100-5,000 3-4 500-10,000 4-5 1,000-50,000 5-6 10,000-100,000 6-8 15,000-200,000 8-12 10,000-100,000 Serum or plasma beta choriog onadotropin measurement (units/volume)Ordered By: RENATO Black on 06-17-2022 HCG.beta subunit Qn 199.16 m[IU]/mL [facility] Comment on above: Approximate Approxim ate hCG Gestational Age Range (mIU/ml) (weeks)0.2-1 5-50 1-2 50-500 2-3 100-5,000 3-4 500-10,000 4-5 1,000-50,000 5-6 10,000-100,000 6-8 15,000-200,000 8-12 10,000-100,000 Serum or plasma beta choriog onadotropin measurement (units/volume)Ordered By: RENATO Black on 06-15-2022 HCG.beta subunit Qn 89.92 m[IU]/mL [facility] Comment on above: Approximate Approxim ate hCG Gestational Age Range (mIU/ml) (weeks)0.2-1 5-50 1-2 50-500 2-3 100-5,000 3-4 500-10,000 4-5 1,000-50,000 5-6 10,000-100,000 6-8 15,000-200,000 8-12 10,000-100,000 Coding Summary.on 03-08-2018 Coding Summary. CODING DATE: 03/08/2018 [facility] STATUS: PAYOR: Self Pay ADMIT DX: REASON [...] Genet Landon Date Saved: 03/08/2018 12:01 pm Normal [facility] Coding Summary.on 11-03-2017 Coding Summary. CODING DATE: 11/03/2017 [facility] STATUS: Home (Routine DC) PAYOR: Self [...] Genet Landon Date Saved: 11/03/2017 12:30 pm Normal [facility] Vital Signs Date Time Vital Sign Value Performing Clinician Brad valenzuela 11-08-2023 14:16-0500 Body height 171 cm Kim Alexoll BUILDINGS PAINTER-REVENUE FIELD AUDITOR Work Phone: [facility] 11-08-2023 14:16-0500 Body mass index (BMI) [Ratio] 39.56 kg/m2 Kim Garcia BUILDINGS PAINTER-REVENUE FIELD AUDITOR Work Phone: [facility] 11-08-2023 14:16-0500 Body weight 115.67 kg Kim Garcia BUILDINGS PAINTER-REVENUE FIELD AUDITOR Work Phone: [facility] [employer] [facility] 11-08-2023 14:16-0500 Diastolic blood pressure 77 mm[Hg] Kim Garcia BUILDINGS PAINTER-REVENUE FIELD AUDITOR Work Phone: [facility] [employer] [facility] 11-08-2023 14:16-0500 Heart rate 80 /min Kim Garcia BUILDINGS PAINTER-REVENUE FIELD AUDITOR Work Phone: [facility] 11-08-2023 14:16-0500 Systolic blood pressure 143 mm[Hg] Kim Garcia BUILDINGS PAINTER-REVENUE FIELD AUDITOR Work Phone: [facility] 10-15-2023 08:34-0500 Body height 171.5 cm Pmh 1 [facility] 10-15-2023 08:34-0500 Body mass index (BMI) [Ratio] 38.27 kg/m2 Pmh 1 [facility] 10-15-2023 08:34-0500 Body weight 112.49 kg Pmh 1 [facility] 10-12-2023 10:57-0500 Body height 170.2 cm Isabel Medeiros MD Work Phone: [facility] 10-12-2023 10:57-0500 Body mass index (BMI) [Ratio] 39.94 kg/m2 Isabel Medeiros MD Work Phone: [facility] 10-12-2023 10:57-0500 Body weight 115.67 kg Isabel Medeiros MD Work Phone: [facility] 07-31-2022 11:30-0500 Diastolic blood pressure 88 mm[Hg] MD Emery Moe Work Phone: [facility] 07-31-2022 11:30-0500 Heart rate 86 /min MD Emery Moe Work Phone: [facility] 07-31-2022 11:30-0500 Respiratory rate 20 /min MD Emery Moe Work Phone: [facility] 07-31-2022 11:30-0500 SaO2% (BldA) [Mass fraction] 98 % MD Emery Moe Work Phone: [facility] 07-31-2022 11:30-0500 Systolic blood pressure 148 mm[Hg] MD Emery Moe Work Phone: [facility] 07-31-2022 09:37-0500 Body height 170.18 cm MD Emery Moe Work Phone: [facility] 07-31-2022 09:37-0500 Body temperature 97.8 [degF] MD Emery Moe Work Phone: [facility] 07-31-2022 09:37-0500 Body weight 128 kg MD Emery Moe Work Phone: [facility] 07-14-2022 10:39-0400 Body temperature 98 [degF] MD Emery Moe Work Phone: [facility] 07-14-2022 10:39-0400 Body weight 129.22 kg MD Emery Moe Work Phone: [facility] 07-14-2022 10:39-0400 Diastolic blood pressure 79 mm[Hg] MD Emery Moe Work Phone: [facility] 07-14-2022 10:39-0400 Heart rate 86 /min MD Emery Moe Work Phone: [facility] 07-14-2022 10:39-0400 Respiratory rate 20 /min MD Emery Moe Work Phone: [facility] 07-14-2022 10:39-0400 SaO2% (BldA) [Mass fraction] 97 % MD Emery Moe Work Phone: [facility] 07-14-2022 10:39-0400 Systolic blood pressure 131 mm[Hg] MD Emery Moe Work Phone: [facility] 07-14-2022 10:31-0400 Body height 170.18 cm MD Emery Moe Work Phone: [facility] 07-07-2022 10:51-0400 Diastolic blood pressure 77 mm[Hg] MD Emery Moe Work Phone: [facility] 07-07-2022 10:51-0400 Heart rate 68 /min MD Emery Moe Work Phone: [facility] 07-07-2022 10:51-0400 Systolic blood pressure 120 mm[Hg] MD Emery Moe Work Phone: [facility] 07-07-2022 08:37-0400 Body temperature 97.1 [degF] MD Emery Moe Work Phone: [facility] 07-07-2022 08:37-0400 Respiratory rate 18 /min MD Emery Moe Work Phone: [facility] 07-07-2022 08:37-0400 SaO2% (BldA) [Mass fraction] 97 % MD Emery Moe Work Phone: [facility] Encounters Encounter Date Encounter Type Care Provider Facility Start: 07-03-2024 End: 07-03-2024 Refill Lynette Mehta ZARA Work Phone: [facility] Comment on above: Attention deficit hy peractivity disorder, predominantly inattentive type (CMS/HCC) Start: 06-23-2024 End: 06-23-2024 Bamboo flowsheet Gus Bustamante MD Work Phone: [facility] Start: 06-23-2024 End: 06-23-2024 Bamboo flowsheet Gus Bustamante MD Work Phone: [facility] Start: 06-23-2024 End: 06-23-2024 Patient encounter procedure Gus Bustamante MD Work Phone: [facility] Comment on above: Neoplasm of uncertai n behavior of skin (Primary Dx) Start: 06-23-2024 End: 06-23-2024 ambulatory GUS BUSTAMANTE Not Available Start: 06-13-2024 End: 06-13-2024 ambulatory NANCY FLOWERS Not Available Start: 06-09-2024 End: 06-09-2024 ambulatory NANCY FLOWERS Not Available Start: 05-23-2024 End: 06-02-2024 Phys/qhp telephone evaluation 21-30 min Mireille Riley Work Phone: [facility] Comment on above: Encounter for nonpro creative genetic counseling (Primary Dx); Abnormal skin morphology determined by biopsy; Family history of melanoma; Family history of kidney cancer; Family history of lung cancer Start: 05-23-2024 End: 05-23-2024 ambulatory NANCY FLOWERS Not Available Start: 05-23-2024 End: 06-02-2024 ambulatory UNKNOWN PROVIDER Facility:[facility] Start: 05-05-2024 End: 05-05-2024 ambulatory SEBASTIÁN B APLING Not Available Start: 05-01-2024 End: 05-01-2024 ambulatory SEBASTIÁN B APLING Not Available Start: 04-18-2024 End: 04-18-2024 ambulatory GUS BUSTAMANTE Not Available Start: 04-13-2024 End: 04-13-2024 [facility] Start: 11-30-2023 ambulatory [facility] Start: 11-25-2023 End: 11-25-2023 ambulatory [facility] Iraheta ABHI Not Available Start: 11-17-2023 Telephone encounter [facility] Start: 11-08-2023 End: 11-08-2023 ambulatory [facility] Start: 11-08-2023 End: 11-08-2023 [facility] PAINTER-REVENUE FIELD AUDITOR Work Phone: [facility] Comment on above: Status post laparosc opic cholecystectomy (Primary Dx) Start: 10-25-2023 End: 10-25-2023 Evaluation and management of inpatient MAINOR Cherri [facility] Start: 10-25-2023 End: 10-25-2023 Evaluation and management of inpatient [facility] Start: 10-15-2023 End: 10-16-2023 ambulatory ELVIN Iraheta AMBROSIO [facility] Start: 10-15-2023 Encounter for other preprocedural examination [facility] Start: 10-15-2023 End: 10-15-2023 Patient encounter procedure [facility] Pre-Admission Testing 1 [facility] - Pre Admit Comment on above: Preop examination (P rimary Dx); Type 2 diabetes mellitus without complication, without long-term current use of insulin ([facility] Start: 10-15-2023 End: 10-15-2023 Preprocedural examination done [facility] 1 [facility] Start: 10-12-2023 End: 10-12-2023 ambulatory [facility] Start: 10-12-2023 End: 10-12-2023 Office outpatient new 45 minutes Isaebl Medeiros MD Work Phone: [facility] Comment on above: Biliary colic (Prima ry Dx) Start: 10-06-2023 ambulatory [facility] Start: 10-05-2023 ambulatory [facility] r[facility]aheta [facility] Start: 02-09-[address] DAVIE CHURCH . Facili ty:[facility] Start: 02-02-[address] EMERY MOE Facility: [facility] Start: 01-26-[address] EMERY MOE Facility: [facility] Start: 01-20-2023 End: 01-22-2023 Evaluation and management of inpatient DR DAVIE CHURCH . Facility:[facility] Start: 01-19-[address] EMERY MOE Facility: [facility] Start: 01-14-[address] DAVIE CHURCH . Facili ty:[facility] Start: 01-12-2023 End: 01-12-[address] DAVIE CHURCH . Facility:[facility] Start: 01-08-2023 End: 01-08-[address] SHERRON MIRANDA . Facility:[facility] Start: 01-05-2023 End: 01-05-[address] EMERY MOE Facility:[facility] Start: 01-01-2023 End: 01-01-[address] EMERY MOE Facility:[facility] Start: 12-29-2022 End: 12-29-[address] SHERRON MIRANDA . Facility:[facility] Start: 12-25-2022 End: 12-26-[address] EMERY MOE Facility:[facility] Start: 12-22-2022 End: 12-22-[address] DAVIE CHURCH . Facility:[facility] Start: 12-15-2022 End: 12-15-[address] EMERY MOE Facility:[facility] Start: 12-08-2022 End: 12-08-[address] EMERY MOE Facility:[facility] Start: 09-17-2022 End: 09-17-[address] EMERY MOE Facility:[facility] Start: 09-02-2022 End: 09-02-[address] EMERY MOE Facility:[facility] Start: 07-31-2022 End: 07-31-2022 Emergency department patient visit Leeroy Collazo Facility:[facility] Start: 07-31-2022 End: 07-31-2022 Emergency department patient visit MD Emery Moe Work Phone: [facility] Start: 07-14-2022 Registered Recurring MD Emery Moe Work Phone: [facility] Start: 07-07-2022 End: 07-07-2022 ambulatory MD Emery Moe Work Phone: [facility] Work Phone: Start: 07-07-2022 End: 07-07-2022 Discharged Recurring MD Emery Moe Work Phone: [facility] - [facility] Start: 06-19-2022 End: 06-19-2022 Patient encounter procedure MD Emery Moe Work Phone: [facility] Start: 06-17-2022 End: 06-17-2022 Patient encounter procedure MD Emery Moe Work Phone: [facility] Start: 06-15-2022 End: 06-15-2022 Patient encounter procedure MD Emery Moe Work Phone: [facility] Start: 10-27-2017 End: 10-28-2017 Patient encounter Abbi Martin Facility:[facility] Start: 10-27-2017 End: 10-27-2017 Patient encounter Abbi Martin Facility:[facility] Procedures Date Procedure Procedure Detail Performing Clinician Start: 06-23-2024 SKIN EXCISION Gus Bustamante MD Work Phone: Start: 06-23-2024 SKIN REPAIR Gus Bustamante MD Work Phone: Start: 08-21-2022 Microalbumin [Mass/volume] in Urine by Test strip Isabel Medeiros MD Work Phone: Start: 07-31-2022 Diagnostic ultrasound of gravid uterus MD Emery Moe Work Phone: Start: 06-10-2022 Microscopic observation [Identifier] in Cervix by Cyto stain Mireille Riley Work Phone: History of cholecystectomy Status post laparoscopic cholecystectomy Kim Garcia BUILDINGS PAINTER-REVENUE FIELD AUDITOR Work Phone: Plan of Treatment Date Care Activity Detail Author Start: 2040 Shingles (RZV) Vaccine (1 of 2) Shingles (RZV) Vaccine (1 of 2) [facility] Start: 06-10-2027 Screening for malignant neoplasm of cervix [facility] Start: 08-26-2025 Glaucoma screening Diabetes: Retinopathy Screening [facility] Start: 06-10-2025 Screening for malignant neoplasm of cervix Pap Smear [facility] Start: 04-18-2025 End: 04-18-2025 Patient encounter procedure 04/18/2025 8:30 AM EDT Office Visit [facility] [address] [place] [address] Gus Bustamante MD [address] [place] [address] [facility] Start: 11-08-2024 Adult BMI Screening Adult BMI Screening [facility] Start: 11-08-2024 Tobacco Screening Tobacco Screening [facility] Start: 10-15-2024 Adult BMI Screening Adult BMI Screening [facility] Start: 10-15-2024 Tobacco Screening Tobacco Screening [facility] Start: 10-12-2024 Adult BMI Screening Adult BMI Screening [facility] Start: 10-12-2024 Tobacco Screening Tobacco Screening [facility] Start: 07-25-2024 End: 07-25-2024 Patient encounter procedure 07/25/2024 9:00 AM EST Office Visit [facility] [address] [facility] [address] [place] [address] Nancy Flowers DO [address] [place] [address] [facility] Start: 07-24-2024 End: 07-24-2024 Patient encounter procedure 07/24/2024 8:00 AM EST Office Visit [facility] [address] [facility] [address] [place] [address] Lisseth Villa PA [address] [facility] [address] [place] [address] [facility] Start: 07-14-2024 Hemoglobin A1c measurement Diabetes: Hemoglobin A1C [facility] Start: 07-10-2024 End: 07-10-2024 Patient encounter procedure 07/10/2024 3:05 PM EDT Office Visit [facility] [address] [place] [address] Gus Bustamante MD [address] [place] [address] [facility] Start: 07-07-2024 End: 07-07-2024 Patient encounter procedure [facility] Start: 07-06-2024 End: 07-06-2024 Patient encounter procedure 07/06/2024 9:00 AM EDT Office Visit [facility] [address] [place] [address] Davie Church DO [address] [address] [facility] Start: 06-23-2024 End: 06-23-2024 Patient encounter procedure 06/23/2024 8:30 AM EDT Office Visit [facility] [address] [place] [address] Gus Bustamante MD [address] [place] [address] Arrived [facility] Comment on above: Arrived Start: 06-20-2024 Influenza vaccination Influenza Vaccine (#1) [facility] Start: 05-21-2024 COVID-19 Vaccine () COVID-19 Vaccine () [facility] Start: 05-21-2024 Influenza vaccination Influenza Vaccine (#1) [facility] Start: 01-21-2024 Urine screening for protein Diabetes: Urine Protein Screening [facility] Start: 11-30-2023 End: 11-30-2023 Patient encounter procedure 11/30/2023 8:45 AM EDT Office Visit [facility] [address] [place] [address] Isabel Medeiros MD [address] [place] [phone] [facility] Start: 11-09-2023 End: 11-09-2023 Patient encounter procedure 11/09/2023 10:30 AM EST Office Visit [facility] [address] [place] [phone] Kim Garcia, BUILDINGS PAINTER-[facility] [address], [place] [id number] [facility] Start: 10-25-2023 End: 10-25-2023 Admission to same day surgery center 10/25/2023 9:30 AM EST - 10/25/2023 11:15 AM EST Surgery [facility] - Surgery [address] [place] [address] Isabel Medeiros MD [address] [place] [phone] DAVINCI CHOLECYSTECTOMY [09614 (CPT )] [facility] - Surgery Comment on above: DAVINCI CHOLECYSTECTOMY [45903 (CPT )] Start: 10-25-2023 End: 10-25-2023 Laparoscopy surg cholecystectomy DAVINCI CHOLECYSTECTOMY biliary colic 10/25/2023 9:30 AM [facility] Start: 10-25-2023 Subsequent hospital visit by physician 10/25/2023 9:30 AM EST Hospital Encounter [facility] - Surgery [address] [place] [phone] Isabel Medeiros MD [address] [place] [phone] [facility] - Surgery Start: 10-15-2023 End: 10-15-2023 Patient encounter procedure 10/15/2023 8:15 AM EST Procedure visit [facility] - Pre Admit [address] [place] [phone] [facility] - Pre Admit Start: 08-21-2023 Urine screening for protein Urine Microalbumin [facility] Start: 05-21-2023 COVID-19 Vaccine ( season) COVID-19 Vaccine () [facility] Start: 05-21-2023 Influenza vaccination Influenza Vaccine [facility] Start: 07-14-2022 [facility] Start: 2017 HPV Vaccine (optional start 27-45 years) HPV Vaccine (optional start 27-45 years) [facility] Start: 2011 Screening for malignant neoplasm of cervix Pap Smear [facility] Start: 2009 Hepatitis A (HAV) Vaccine (optional start 19+ years) Hepatitis A (HAV) Vaccine (optional start 19+ years) [facility] Start: 2009 Hepatitis B vaccination Hepatitis B (HBV) Vaccine (1 of 3 - 19+ 3-dose series) [facility] Start: 2008 Adult BMI Follow Up Plan Adult BMI Follow Up Plan [facility] Start: 2008 Diabetic foot examination Diabetic Foot Exam [facility] Start: 2008 Hepatitis C screening Hepatitis C Antibody [facility] Start: 2008 Tdap Booster Tdap Booster [facility] Start: 2002 Depression Screening Depression Screening [facility] Start: 2001 DTaP,Tdap and Td Vaccines (6 - Tdap) DTaP,Tdap and Td Vaccines (6 - Tdap) [facility] Start: 1990 Glaucoma screening Diabetic Ophthalmology Exam [facility] Comprehensive metabo lic 2000 panel - Serum or Plasma [facility] Dermatopathology exam Dermatopat hology exam Pathology and Cytology Timed Neoplasm of uncertain behavior of skin Release Upon Ordering for 1 Occurrences starting 06/23/2024 [facility] Work Phone: Comment on above: Release Upon Ordering for 1 Occurrences starting 06/23/2024 Ferritin [Mass/volum e] in Serum or Plasma [facility] GENETIC TESTING GENETIC TESTING Lab Routine Abnormal skin morphology determined by biopsy Family history of melanoma Family history of kidney cancer Family history of lung cancer Ordered: 05/23/2024 [facility] Work Phone: Comment on above: Ordered: 05/23/2024 Patient Education Bleeding in Ea rly ED [facility] Work Phone: Patient referral [facility] Work Phone: Thyrotropin [Units/volume] in Serum or Plasma [facility] End: 10-11-2024 Unlisted Procedure / Surgery Unlisted Procedure / Surgery Procedures Routine Biliary colic 1 Occurrences starting 10/12/2023 until 10/11/2024 [facility] Work Phone: Comment on above: 1 Occurrences starting 10/12/2023 until 10/11/2024 Immunizations Immunization Date Immunization Notes Care Provider [facility] 01-22-2023 measles, mumps and rubella virus vaccine Mireille Wheatselena Work Phone: [facility] 04-06-2003 measles, mumps and rubella virus vaccine Gus Bustamante MD Work Phone: [facility] 04-06-2003 varicella virus vaccine Laith Bustamante MD Work Phone: [facility] 11-15-1998 hepatitis B vaccine, pediatric or pediatric/adolescent dosage Gus Bustamante MD Work Phone: [facility] 06-12-1998 hepatitis B vaccine, pediatric or pediatric/adolescent dosage Gus Bustamante MD Work Phone: [facility] 05-08-1998 hepatitis B vaccine, pediatric or pediatric/adolescent dosage Gus Bustamante MD Work Phone: [facility] 02-25-1996 diphtheria, tetanus toxoids and acellular pertussis vaccine, unspecified formulation Gus Bustamante MD Work Phone: [facility] 02-25-1996 measles, mumps and rubella virus vaccine Gus Bustamante MD Work Phone: [facility] 02-25-1996 trivalent poliovirus vaccine, live, oral Gus Bustamante MD Work Phone: [facility] 07-04-1992 diphtheria, tetanus toxoids and pertussis vaccine Gus Bustamante MD Work Phone: [facility] 07-04-1992 haemophilus influenz ae type b vaccine, conjugate unspecified formulation Gus Bustamante MD Work Phone: [facility] 07-04-1992 measles, mumps and rubella virus vaccine Gus Bustamante MD Work Phone: [facility] 07-04-1992 trivalent poliovirus vaccine, live, oral Gus Bustamante MD Work Phone: [facility] 07-07-1991 diphtheria, tetanus toxoids and pertussis vaccine Gus Bustamante MD Work Phone: [facility] 07-07-1991 haemophilus influenz ae type b vaccine, conjugate unspecified formulation Gus Bustamante MD Work Phone: [facility] 02-27-1991 diphtheria, tetanus toxoids and pertussis vaccine Gus Bustamante MD Work Phone: [facility] 02-27-1991 haemophilus influenz ae type b vaccine, conjugate unspecified formulation Gus Bustamante MD Work Phone: [facility] 02-27-1991 trivalent poliovirus vaccine, live, oral Gus Bustamante MD Work Phone: [facility] 1990 diphtheria, tetanus toxoids and pertussis vaccine Gus Bustamante MD Work Phone: [facility] 1990 trivalent poliovirus vaccine, live, oral Gus Bustamante MD Work Phone: [facility] 1990 haemophilus influenz ae type b vaccine, conjugate unspecified formulation Gus Bsutamante MD Work Phone: [facility] Payers Date Payer Category Payer Private Health Insurance [id number] 2018 Self-pay 1990 Unknown [id number] 2.16.84 0.1.630056.3.579.2.593 1990 Unknown [id number] 2.16.84 0.1.451561.3.579.2.593 1990 Unknown [id number] 2.16.84 0.1.745268.3.579.2.593 1990 Unknown [id number] 2.16.84 0.1.680956.3.579.2.593 1990 Unknown [id number] 2.16.84 0.1.688985.3.579.2.593 1990 Unknown [id number] 2.16.84 0.1.887013.3.579.2.593 1990 Unknown [id number] 2.16.84 0.1.044265.3.579.2.593 1990 Unknown [id number] 2.16.84 0.1.865425.3.579.2.593 1990 Unknown [id number] 2.16.84 0.1.357735.3.579.2.593 1990 Unknown [id number] 2.16.84 0.1.095791.3.579.2.593 1990 Unknown [id number] 2.16.84 0.1.243424.3.579.2.593 1990 Unknown [id number] 2.16.84 0.1.251917.3.579.2.593 1990 Unknown [id number] 2.16.84 0.1.972429.3.579.2.593 1990 Unknown [id number] 2.16.84 0.1.519725.3.579.2.593 1990 Unknown [id number] 2.16.84 0.1.174713.3.579.2.593 1990 Unknown [id number] 2.16.84 0.1.383457.3.579.2.593 1990 Unknown [id number] 2.16.84 0.1.453056.3.579.2.593 1990 Unknown [id number] 2.16.84 0.1.954669.3.579.2.593 1990 Unknown [id number] 2.16.84 0.1.214436.3.579.2.593 1990 Unknown [id number] 2.16.8 40.1.436278.3.579.2.1286 1990 Unknown [id number] 2.16.8 40.1.035903.3.579.2.1286 1990 Unknown [id number] 2.16.8 40.1.351395.3.579.2.1286 1990 Unknown [id number] 2.16.8 40.1.294271.3.579.2.1286 1990 Unknown [id number] 2.16.8 40.1.425357.3.579.2.1286 1990 Unknown [id number] 2.16.8 40.1.569063.3.579.2.1286 1990 Unknown [id number] 2.16.8 40.1.471711.3.579.2.1286 1990 Unknown [id number] 2.16.8 40.1.879502.3.579.2.1286 1990 Unknown [id number] 2.16.84 0.1.802206.3.579.2.1286 1990 Unknown [id number] 2.16.84 0.1.016472.3.579.2.1286 1990 Unknown [id number] 2.16.84 0.1.367115.3.579.2.1286 1990 Unknown [id number] 2.16.84 0.1.995837.3.579.2.1286 1990 Unknown [id number] 2.16.8 40.1.538697.3.579.2.1286 1990 Unknown [id number] 2.16. 840.1.316063.3.579.2.732 1990 Unknown [id number] 2.16.84 0.1.419465.3.579.2.1259 1990 Unknown [id number] 2.16.84 0.1.728666.3.579.2.1259 1990 Unknown [id number] 2.16.84 0.1.285926.3.579.2.1259 1990 Unknown [id number] 2.16.84 0.1.524310.3.579.2.1259 1990 Unknown [id number] 2.16.84 0.1.804737.3.579.2.1259 1990 Unknown [id number] 2.16.84 0.1.404624.3.579.2.1259 1990 Unknown [id number] 2.16.84 0.1.577922.3.579.2.9 1990 Unknown [id number] 2.16.84 0.1.654497.3.579.2.1259 1990 Unknown [id number] 2.16.84 0.1.817712.3.579.2.9 1990 Unknown [id number] 2.16.84 0.1.297977.3.579.2.1259 1959 Medicaid [id number] 1959 Private Health Insurance [id number] 1959 Unknown [id number] 2.16.8 40.1.880503.3.579.2.531 Social History Date Type Detail Facility Tobacco smoking stat [facility] Unknown if ever smoked [facility] Work Phone: Start: 1990 Sex Assigned At Female F [facility] Start: 07-31-2022 End: 06-23-2024 Tobacco smoking status NHIS Ex-smoker (finding) [facility] End: 09-20-2016 History of tobacco use Current smoker [facility] End: 09-20-2016 History of tobacco use Cigarette Smoker [facility] Start: 07-30-2022 End: 06-23-2024 Tobacco use and exposure Smokeless tobacco non-user [facility] Start: 10-12-2023 End: 11-08-2023 Alcohol intake Ex-drinker (finding) [facility] Start: 10-12-2023 End: 06-23-2024 History of Social function [facility] Start: 10-12-2023 End: 06-23-2024 Tobacco use panel [facility] Within the past 12 months we worried whether our food would run out before we got money to buy more. Never True [facility] Start: 1990 Sex Assigned At Not on file P [facility] Start: 11-08-2023 Tobacco Comment Social smoker [facility] Tobacco smoking stat [facility] Tobacco smoking consumption unknown [facility] Start: 06-23-2024 End: 06-26-2024 Alcoholic beverage intake Lifetime non-drinker (finding) [facility] Start: 03-15-2023 Alcohol Comment Caffeine: 1-2 cups/day tea, coffee [facility] Medical Equipment Procedure Code Equipment Code Equipment Origin al Text Equipment Identifier Dates Test for ketones with blood glucose >200 [id number] Start: 11-03-2022 End: 10-12-2023 Clinical Notes 01-20-2023 to 07-03-2024 Telephone Encounter - BENITO Tejada - 07/03/2024 3:57 PM EDTTelephone Encounter - BENITO Tejada - 07/03/2024 3:57 PM EDTTelephone Encounter - Lynette Mehta LPN - 07/03/2024 2:46 PM EDT Note Date & Type Note Facility 07-03-2024 Telephone encounter Note OARRS reviewed, Rx sent into patient's pharmacy. [facility] 07-03-2024 Miscellaneous Notes OARRS reviewed, Rx sent into patient's pharmacy. She did schedule an appt with Lisseth Villa on 07/24/24 for a follow up. documented in this encounter [facility] 07-03-2024 Telephone encounter Note She did schedule an appt with Lisseth Villa on 07/24/24 for a follow up. [facility] 06-23-2024 History of Present illness Narrative Images from the original note were not included. Clarke Last is a 33 y.o. female who presents for the following: Excision. 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 No. . All pertinent medical history, medications, and allergies were reviewed. Surgical assistants: Robinson Mora LPN, Ольга Capellan MA Objective Well appearing patient in no apparent distress; mood and affect are within normal limits. Accompanied by 1. Neoplasm of uncertain behavior of skin Left Abdomen [place] macule at biopsy site Skin excision Lesion length (cm): 0.8 Lesion width (cm): 0.8 Margin per side (cm): 0.3 Total excision diameter (cm): 1.4 Informed consent: discussed and consent obtained Informed consent comment: Risks and possible complications were discussed as noted on the consent form. The consent form was signed prior to the procedure. Timeout: patient name, date of , surgical site, and procedure verified Timeout comment: Patient and provider identified site. Site was marked and excision was drawn out. Photo was taken and shown to patient, patient verified this is the correct site. Procedure prep: Patient was prepped and draped in usual sterile fashion (The planned incision lines were drawn along relaxed skin tension lines, if possible, to minimize scarring and deformity of surrounding structures.) Prep type: Chlorhexidine Anesthesia: the lesion was anesthetized in a standard fashion Anesthesia comment: The local anesthetic was injected to create a field block at the site of the procedure. Anesthetic: 1% lidocaine w/ epinephrine 1-100,000 buffered w/ 8.4% NaHCO3 Instrument used: #15 blade Instrument used comment: Incisions were made as drawn, and the surrounding tissue was undermined until the skin edges could be approximated without undue tension. Any tissue redundancies were removed. Hemostasis achieved with: suture and electrodesiccation Additional details: Amount of lidocaine used: 12.0 ml Estimated blood loss: <1.0 ml Skin repair Complexity: Intermediate Final length (cm): 5 Reason for type of repair: reduce tension to allow closure and allow closure of the large defect Undermining: edges undermined Undermining comment: The surrounding tissue was undermined until the skin edges could be approximated without undue tension. Any tissue redundancies were removed. Subcutaneous layers (deep stitches): Suture size: 3-0 Suture type comment: Biosyn Stitches: Buried horizontal mattress (Closure was performed in a layered fashion with subcutaneous tissue closed first using tension-bearing absorbable sutures to the level of the superficial fascia.) Fine/surface layer approximation (top stitches): Suture size: 4-0 Suture type: Prolene (polypropylene) Stitches: simple running Stitches comment: Epicuticular skin sutures were then placed with minimal tension. Suture removal (days): 14 Outcome: patient tolerated procedure well with no complications Post-procedure details: sterile dressing applied and wound care instructions given Post-procedure details comment: It was emphasized to the patient to contact the office for any signs of infection, uncontrollable bleeding, or complications. Dressing type: pressure dressing Specimen A - Dermatopathology exam Diagnosis: Compound nevus with congenital features Check Margins: yes Previous accession number: [id number] Follow up: 14 days for s/r documented in this encounter [facility] 05-23-2024 Note CANCER GENETIC CLINI C EVALUATION Patient Name: Pam Last : 1990 Referred by: No referring provider defined for this encounter. Documentation: Mode: Telephone Patient Patient Work Phone: Patient Cell Preferred phone: [phone] Consent: I confirmed patient understanding of the risks and benefits of telehealth visits and obtained consent to proceed with the telehealth visit. Location of Patient: Home of patient HISTORY OF PRESENT ILLNESS: Pam Last is a 33 year old female referred for a personal history of non-cancerous skin finding with loss of BAP-1 protein expression and to discuss genetic testing options. CANCER MEDICAL HISTORY: Ms. Last does not have a personal history of cancer. Ms. 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 ADDITIONAL MEDICAL HISTORY: No past medical history on file. FAMILY HISTORY: A four generation pedigree was obtained, and the significant findings are noted below. Siblings/Children: - one daughter, living at 16 months, normal development, has Josemanuel syndrome Maternal family history: - non-contributory Paternal family history: - father had non-melanoma skin cancer - paternal grandmother with melanoma 3 times in her life,first time in her 30's - paternal grandmother's siblings with kidney/lung cancers, melanoma, colon cancer, and paternal grandmother's mother with lung cancer Cancer related genetic testing previously performed in the family: none Family history will be scanned into the medical record. PHYSICAL EXAM: Deferred COUNSELING: Ms. 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 Mutations in the BAP1 gene increase one's risk to develop melanoma and non-melanoma skin cancer, mesothelioma lung cancer, and renal cell carcinomas. BAP1 cancer risks and screening options were reviewed (lung and kidney cancer screening, uveal and skin melanoma screening). If Ms. Last is positive for a mutation in BAP1 or another cancer predisposition gene, all first-degree relatives are at a 50% risk to be positive. Since Ms. Last also reported a family history of colon cancer, the option of genetic testing via a cancer panel (which would simultaneously analyze multiple cancer susceptibility genes) was presented. The CancerNext-Expanded+RNAinsight panel (71 cancer susceptibility genes) offered by [employer] was presented. We discussed that each gene on the panel has its own associated cancer types and risk levels, and that management plans would be made according to the current information regarding those risks for any gene(s) for which abnormal results areidentified. The purpose of testing and potential outcomes for Ms. Last and her family were discussed. Ms. Last was informed of the types of results obtained via genetic testing (positive, negative, and variant(s) of uncertain significance) and the implications of each for her and her family members. Lastly, we discussed the optional nature of testing. IMPRESSION: -Personal/family history reported suspicious for an inherited cancer susceptibility: yes -Risk level: high - BAP-1 protein inactivation and family history of lung, kidney, and skin cancers Genetic testing is recommended via a comprehensive cancer gene panel. Ms. Last meets NCCN guidelines for BAP1 genetic testing. -Screening recommendations: If genetic testing is positive, management recommendations will be made at that time according to available current national practice guidelines for any gene(s) in which abnormal results are obtained. If genetic testing is negative or not completed, it is recommended that Ms. Last proceed with cancer screenings as per her personal medical history and family history of cancer. For internal order use: Test portal/lab: [facility] Test name: CancerNext-Expanded+RNAinsight. 71 genes total. Test code: 8874CancerNext-Expanded Insurance billing under: Other:BAP1 Special instructions: none OUTCOME: - Genetic testing in Ms. Last's family is recommended via the CancerNext-Expanded+RNAinsight panel offered by [facility]. - [employer] insurance pre-auth process was explained. Donna will contact Ms. Last with expected OOP cost. - Ms. Last elected to proceed with testing. - Ms. Last elected to proceed via blood draw. Order placed in [facility]. - Results expected in 2-3 weeks from time of sample receipt. - Ms. Last will be contacted with her results, once available - by phone call - she agreed to this plan. - Further recommendations for Ms. Last and her family members will be made accordingly at that time. (more content not included)... [facility] 05-23-2024 History of Present illness Narrative CANCER GENETIC CLINIC EVALUATION Patient Name: Pam Last : 1990 Referred by: No referring provider defined for this encounter. Documentation: Mode: Telephone Patient Patient Work Phone: Patient Cell Preferred phone: [phone] Consent: I confirmed patient understanding of the risks and benefits of telehealth visits and obtained consent to proceed with the telehealth visit. Location of Patient: Home of patient HISTORY OF PRESENT ILLNESS: Pam Last is a 33 year old female referred for a personal history of non-cancerous skin finding with loss of BAP-1 protein expression and to discuss genetic testing options. CANCER MEDICAL HISTORY: Ms. Last does not have a personal history of cancer. Ms. 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 ADDITIONAL MEDICAL HISTORY: No past medical history on file. FAMILY HISTORY: A four generation pedigree was obtained, and the significant findings are noted below. Siblings/Children: - one daughter, living at 16 months, normal development, has Josemanuel syndrome Maternal family history: - non-contributory Paternal family history: - father had non-melanoma skin cancer - paternal grandmother with melanoma 3 times in her life,first time in her 30's - paternal grandmother's siblings with kidney/lung cancers, melanoma, colon cancer, and paternal grandmother's mother with lung cancer Cancer related genetic testing previously performed in the family: none Family history will be scanned into the medical record. PHYSICAL EXAM: Deferred COUNSELING: Ms. 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 Mutations in the BAP1 gene increase one's risk to develop melanoma and non-melanoma skin cancer, mesothelioma lung cancer, and renal cell carcinomas. BAP1 cancer risks and screening options were reviewed (lung and kidney cancer screening, uveal and skin melanoma screening). If Ms. Last is positive for a mutation in BAP1 or another cancer predisposition gene, all first-degree relatives are at a 50% risk to be positive. Since Ms. Last also reported a family history of colon cancer, the option of genetic testing via a cancer panel (which would simultaneously analyze multiple cancer susceptibility genes) was presented. The CancerNext-Expanded+RNAinsight panel (71 cancer susceptibility genes) offered by [facility] was presented. We discussed that each gene on the panel has its own associated cancer types and risk levels, and that management plans would be made according to the current information regarding those risks for any gene(s) for which abnormal results are identified. The purpose of testing and potential outcomes for Ms. Last and her family were discussed. Ms. Last was informed of the types of results obtained via genetic testing (positive, negative, and variant(s) of uncertain significance) and the implications of each for her and her family members. Lastly, we discussed the optional nature of testing. IMPRESSION: -Personal/family history reported suspicious for an inherited cancer susceptibility: yes -Risk level: high - BAP-1 protein inactivation and family history of lung, kidney, and skin cancers Genetic testing is recommended via a comprehensive cancer gene panel. Ms. Last meets NCCN guidelines for BAP1 genetic testing. -Screening recommendations: If genetic testing is positive, management recommendations will be made at that time according to available current national practice guidelines for any gene(s) in which abnormal results are obtained. If genetic testing is negative or not completed, it is recommended that Ms. Last proceed with cancer screenings as per her personal medical history and family history of cancer. For internal order use: Test portal/lab: [employer] Test name: CancerNext-Expanded+RNAinsight. 71 genes total. Test code: 8874CancerNext-Expanded Insurance billing under: Other:BAP1 Special instructions: none OUTCOME: - Genetic testing in Ms. Last's family is recommended via the CancerNext-Expanded+RNAinsight panel offered by [facility]. - Donna's insurance pre-auth process was explained. Donna will contact Ms. Last with expected OOP cost. - Ms. Last elected to proceed with testing. - Ms. Last elected to proceed via blood draw. Order placed in [facility]. - Results expected in 2-3 weeks from time of sample receipt. - Ms. Last will be contacted with her results, once available - by phone call - she agreed to this plan. - Further recommendations for Ms. Last and her family members will be made accordingly at that time. Please contact us with any additional questions or concerns. Mireille Riley, MS, [facility] Licensed Genetic Counselor I spoke to the patient and I reviewed the genetic counselor's documentation and discussed the patient with them. I agree with the counselor's medical decision making as documented in their note and made corrections as appropriate. Adore Pete MD Director, Division of Genetics and Genomics CC: No referring provider defined for this encounter. documented in this encounter [facility] 11-17-2023 Miscellaneous Notes ----- Message from Isabel Medeiros MD sent at 11/17/2023 8:49 AM EST ----- Regarding: RE: EXTREME ABDOMINAL PAIN SINCE SX. Please ask her to go to ER. Thank you ----- Message ----- From: Selene Rahman CMA Sent: 11/17/2023 8:42 AM EST To: Isabel Medeiros MD Subject: EXTREME ABDOMINAL PAIN SINCE SX. SERINA, Patient calls and states that she is having an episode of extreme pain in the same spot as before she had GB surgery on 10/25/23. She has had 3 episodes that goes on for days accompanied with 10/10 pain, & nausea. She states that she has had vomiting a few times. I asked her if she has adjusted her diet & she stated that she's even gone over 24 hrs without eating. She's not eaten for 12 hrs at this time, due to RUQ pain She says the pain is worse than before surgery. Let me know what I should tell her please. Selene Thompson Patient was on her way to the ED when I called her. She'll call us, to keep us posted. She went to [facility] so we will not have an automatic update from them. documented in this encounter [facility] 11-17-2023 Telephone encounter Note ----- Message from Isabel Medeiros MD sent at 11/17/2023 8:49 AM EST ----- Regarding: RE: EXTREME ABDOMINAL PAIN SINCE SX. Please ask her to go to ER. Thank you ----- Message ----- From: Selene Rahman CMA Sent: 11/17/2023 8:42 AM EST To: Isabel Medeiros MD Subject: EXTREME ABDOMINAL PAIN SINCE SX. HELLO, Patient calls and states that she is having an episode of extreme pain in the same spot as before she had GB surgery on 10/25/23. She has had 3 episodes that goes on for days accompanied with 10/10 pain, & nausea. She states that she has had vomiting a few times. I asked her if she has adjusted her diet & she stated that she's even gone over 24 hrs without eating. She's not eaten for 12 hrs at this time, due to RUQ pain She says the pain is worse than before surgery. Let me know what I should tell her please. Selene Thompson [facility] 11-17-2023 Telephone encounter Note Patient was on her way to the ED when I called her. She'll call us, to keep us posted. She went to [facility] so we will not have an automatic update from them. [facility] 11-08-2023 History of Present illness Narrative Images from the original note were not included. Subjective Pam Last is a 33 y.o. female status [...] Neurological: Mental Status: She is alert. Assessment Pam Last is a 33 y.o.female postop laparoscopic cholecystectomy. Plan Final pathology discussed and given to patient in office today. No heavy lifting for 4 more weeks. Nausea - patient was having this prior to surgery, could be underlying GERD, recommended omeprazole daily OTC. If symptoms persist or worsen follow-up in office. Patient verbalizes understanding. Status post laparoscopic cholecystectomy [Z90.49] GLENNY SOLITARIO [facility] [place] This note was created with the assistance of a speech recognition program. While intending to generate a timely document that accurately reflects the content of the visit, no guarantee can be provided that every grammatical or spelling mistake has been or will be identified or corrected. Thank you for your understanding. GLENNY Solitario 11/08/23 1439 documented in this encounter [facility] 10-15-2023 Instructions Sangita Newby RN - 10/15/2023 8:15 AM EST Preoperative Education Checklist- General Surgery date: 10/25/23 Surgery time: 930a Arrival time: 730a 1. Bring a photo ID and your insurance card with you the day of surgery. You will check in at the main lobby of the [facility]- registration desk is straight ahead as soon as you walk in. Tell them you are here for surgery. 2. If you have a Living Will/Durable Power of E [employer] for Health Care that is not on [...] after you have bathed. 5. NO nail syriac/acrylic on at least one finger. If you are having a hand, wrist or foot surgery then all nail syriac and artificial/acrylic nails must be removed from [...] please call the Pread[facility] Testing office at [phone], Mon.-Fri. 7 a.m.-3 p.m. Leave a voicemail [...] go swimming or use a hot tub ([employer]), or perform activities where your incision is [...] with your doctor. documented in this encounter [facility] 10-12-2023 History of Present illness Narrative Images from the original note were not included. Chief Complaint: Abdominal pain History of Present Illness: Pam Last is a 33 y.o. female who [...] cholelithiasis. 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 HPI Review of Systems Constitutional: Negative for [...] (gastroesophageal reflux disease) Type 2 diabetes mellitus ([facility]) Past Surgical History: Procedure Laterality Date SECTION [...] Cholelithiasis without evidence of acute cholecystitis. Assessment: Pam Last is a 33 y.o.female with biliary colic Biliary colic [K80.50] Plan: Robotic cholecystectomy, possible open, possible intraoperative cholangiogram Isabel Medeiros MD [facility] [place] Evaluation included: Preparing to see the patient (e.g., review of tests) Obtaining and/or reviewing separately obtained history Performing a medically appropriate examination and/or evaluation Counseling and educating the patient/family/caregiver Referring and communicating with other health home health care provider Isabel Medeiros MD [facility] [place] documented in this encounter [facility] 01-20-2023 Note DISCHARGE SUMMARY DISCHARGE DATE: [...] free and no longer on narcotics. [facility] 01-20-2023 Note OPERATIVE NOTE OPERATION DATE: 01/20/2023 PROCEDURE: Primary low transverse section. PREOPERATIVE DIAGNOSIS: 1. Intrauterine at 35 5/7 weeks. 2. Possible preeclampsia 3. Uncontrolled gestational diabetes. 4. Morbid obesity. POSTOPERATIVE DIAGNOSIS: 1. Intrauterine at 35 5/7 weeks. 2. Possible preeclampsia 3. Uncontrolled gestational diabetes. 4. Morbid obesity. ANESTHESIA: Spinal with Duramorph. SURGEON: Davie Church D.O. HAIR DRYER: SHANIA Liang URINE OUTPUT: Yellow and clear. BLOOD LOSS: 600 mL. FINDINGS: Viable . Apgars and weight unknown at this time. [...] patient's uterus and extended laterally digitally. The infant was then delivered atraumatically after the bladder blade was removed in the cephalic position. The cord was clamped and cut. Cord blood was obtained. The infant was handed off to awaiting team. The [...] the Recovery Room in stable condition. [facility] Evaluation note No assessment inform ation available [facility] Work Phone: Evaluation note Diagnosis Onset Date Hypothyroidism acute Iron deficiency acute [facility] Work Phone: Evaluation note* Diagnosis Biliary colic- Primary Calculus of gallbladder without mention of cholecystitis or obstruction Preop examination- Primary Unspecified pre-operative examination Type 2 diabetes mellitus without complication, without long-term current use of insulin ([facility] Diagnosis Preop examination- Primary Unspecified pre-operative examination Type 2 diabetes mellitus without complication, without long-term current use of insulin (CMS-HCC) Preop examination Unspecified pre-operative examination Type 2 diabetes mellitus without complication, without long-term current use of insulin (CMS-HCC) documented in this encounter [facility] Diagnosis Status post laparoscopic cholecystectomy- Primary Other postprocedural status [facility] Diagnosis Encounter for nonprocreative genetic counseling- Primary Abnormal skin morphology determined by biopsy Family history of melanoma Family history of other specified malignant neoplasm Family history of kidney cancer Family history of malignant neoplasm of kidney Family history of lung cancer Family history of malignant neoplasm of trachea, bronchus, and lung [facility] Diagnosis Neoplasm of uncertain behavior of skin- Primary documented in this encounter [facility] HealthcareEvaluation note* Diagnosis Attention deficit hyperactivity disorder, predominantly inattentive type (CMS/HCC) Type 2 diabetes mellitus with hyperglycemia, without long-term current use of insulin (CMS/HCC) Attention deficit hyperactivity disorder, predominantly inattentive type (CMS/HCC)- Primary Type 2 diabetes mellitus without complication, without long-term current use of insulin (CMS/HCC) Essential hypertension- Primary Unspecified essential hypertension Type 2 diabetes mellitus with hyperglycemia, without long-term current use of insulin (CMS/HCC) Attention deficit hyperactivity disorder, predominantly inattentive type (CMS/HCC) Memory loss Other fatigue Attention deficit hyperactivity disorder, predominantly inattentive type (CMS/HCC) documented in this encounter [facility] HealthcareHospital Discharge instructions Additional Instructions 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 Return to the ED if develop worsening [facility] Work Phone: InstructionsNot on filedocumented in this encounter [facility] [employer] zum[employer]k SystemInstructionsNot on filedocumented in this encounter [facility] zumatek SystemInstructionsNot on filedocumented in this encounter [facility] [employer] System Summary Purpose Family History Relationship Condition Age at Onset Recorded Date/T gato father Pulmonary embolism Unknown Hypertension Unknown Advance Directives Advance Directive Response Recorded Date/ Time Advance Directives No March 18 10:00am Advance Directive Response Recorded Date/ Time Advance Directives No March 18 9:00am Chief Complaint and Reason for Visit Chief Complaint O20.9 O20.9 O20.9 anemia. Chief Complaint O20.9 O20.9 O20.9 anemia. Anemia 10 wks iup, abd pain/cramps Reason for Visit Hypothyroidism Iron deficiency Reason for Referral Specialty Diagnoses / Procedures Referred By Contac t Referred To Contact Diagnoses Biliary colic Procedures Unlisted Procedure / Surgery Isabel Medeiros MD [address] [place] [address] Referral ID Status Reason Start Date Expiration Date V isits Requested Visits Authorized [id number] Pending Review 10/12/2023 10/11/2024 1 1 Specialty Diagnoses / Procedures Referred By Contac t Referred To Contact Diagnoses Preop examination Type 2 diabetes mellitus without complication, without long-term current use of insulin ([facility]) Procedures ECG 12 lead Elvin Valente MD [address] [place] [address] Referral ID Status Reason Start Date Expiration Date V isits Requested Visits Authorized [id number] Pending Review 10/12/2023 10/11/2024 1 1 Additional Source Comments INFORMATION SOURCE (unrecogn ized section and content) DATE CREATED AUTHOR 06/17/2018 [facility] DATE CREATED AUTHOR AUTHOR'S ORGANIZ ATION 02/26/2023 [facility] [place] [facility] DATE CREATED AUTHOR AUTHOR'S ORGANIZ ATION 08/21/2023 [facility] DATE CREATED AUTHOR AUTHOR'S ORGANIZ ATION 10/31/2023 [facility] DATE CREATED AUTHOR AUTHOR'S ORGANIZ ATION 12/01/2023 [facility] DATE CREATED AUTHOR AUTHOR'S ORGANIZ ATION 06/05/2024 [facility] DATE CREATED AUTHOR AUTHOR'S ORGANIZ ATION 06/25/2024 [facility] dical Specialists EPIC Care Teams (unrecognized sec tion and content) Team Status: Inactive Member Role Status Dates Emery Moe MD Primary Care Provider Active Kelly Black MD Attending Provider Active Team Status: Active Member Role Status Vonnie Moe MD Primary Care Provider Active Team Status: Inactive Member Role Status Dates Emery Moe MD Primary Care Provider Active Leeroy Collazo DO Emergency Provider Active Team Status: Active Member Role Status Dates Emery Moe MD Primary Care Provider Active Dimple Del Rosario MD Attending Provider Active Kelly Black MD Referring Provider Active School Social Worker Relationship Specialty Start Date End Date Emery Moe MD [facility] [place], [place] [id number] PCP - General Family Medicine 08/21/22 School Social Worker Relationship Specialty Start Date End Date Emery Moe MD [address] [place], [place] [id number] PCP - General Family Medicine 08/21/22 School Social Worker Relationship Specialty Start Date End Date Emery Moe MD [facility] [place], [place] [id number] PCP - General Family Medicine 08/21/22 School Social Worker Relationship Specialty Start Date End Date Emer[facility] Moe [facility] [place] [address] PCP - General Family Medicine 08/21/22 School Social Worker Relationship Specialty Start Date End Date Emery Moe MD [address] [place] [address] PCP - General Family Medicine 02/22/23 School Social Worker Relationship Specialty Start Date End Date Emery Moe MD [address] [place] [address] PCP - General Family Medicine 02/22/23 School Social Worker Relationship Specialty Start Date End Date Emery Moe MD [address] [place] [address] PCP - General Family Medicine 02/22/23 Goals (unrecognized section and content) Goals may [...] section and content) Reason Comments Cholelithiasis CHOLELITHIASIS, [facility] ER 09/30/23 Reason Comments Post-op Post op davinci chol ecystectomy performed 10/25/23 at [facility] Reason Comments Consult with specialist Reason Comments Excision Reason Onset Date Comments Med Refill 07/03/2024 FOR RECORDS PERTAINING TO PATIENTS WHO ARE [...] BE BASED ON THE PRIMARY CLINICAL RECORDS. [employer] provides no warranty or guarantee of the accuracy or completeness of information in this document.
[2024-07-13 13:08] LABS: Age Gdln ACOG Testing Note (.); HPV Aptima Negative (Negative); IGP, Aptima HPV, rfx 16/18,45 Note (.)
== END 2024-07-06 19:18 | disposition home or self-care (01) ==
LOC: LAB 19:17
PROVIDERS: Visit Provider Obstetrics & Gynecology
DX: Z01.419 Encounter for gynecological examination (general) (routine) without abnormal findings (principal)
CPT/HCPCS: 87624; 88175

== ENCOUNTER 2025-07-16 12:16 | Outpatient (REF) | payer OTHER, SELFPAY ==
--- OUTSIDE RECORDS SUMMARY | 2025-07-11 10:30 | XMS_ITS | Encounter Summary ---
Author Organization [facility] Address [address] [place] [address] Care Team Providers Care Composite Engineer Name Role Phone Claudia Gilliam MD Unavailable Lisa Bobby MD Primary Care Provider [phone] Lisseth Villa PA-C Unavailable [phone] Source Comments In the event this information is protected by the Federal Confidentiality of Alcohol and Drug AbusePatient Records regulations: The Federal rules restrict any use of the information to criminally investigate or prosecute any alcohol or drug abuse patient.[facility] Reason for Visit * ReasonCommentsConsult Encounter Details DateTypeDepartmentCare Team (Latest Contact Info)Mptarsepfgh34/22/2025 10:30 AM EDTOffice Visit Rheumatology [address] [place] [address] Siria Nair APRN.PROPERTY DAMAGE CLAIMS ADJUSTOR [address] [place] [address] Polyarthritis with positive rheumatoid factor (HCC) (Primary Dx); Raynaud's disease without gangrene; Vitamin D deficiency; Skin lesion Social History Tobacco UseTypesPacks/DayYears UsedDateSmoking Tobacco: Never AssessedPHQ-2 AnswerDate RecordedPHQ-2 xqocs047rea Deprivation IndexAnswerDate RecordedNational Score (1-100), lower number is lower ehxm281607/11/2025State Score (1-10), lower number is lower pfcs548Data from: https://www.neighborhoodatlas.medicine.[facility]/. Last address used for [address] [facility]07/11/2025CommentsUnknownSex and Gender InformationValueDate RecordedSex Assigned at BirthNot on fileLegal SexFemale 07/30/2022 12:21 PM ESTGender IdentityNot on fileSexual OrientationNot on file Travel HistoryTravel StartTravel QxeAnevobf79documented as of this encounter Last Filed Vital Signs Vital SignReadingTime TakenCommentsBlood Covtieag036/8607/11/2025 10:29 AM EDT Godef388807/11/2025 10:29 AM FXEHdldgfpgzds06.7 ??C (98 ??F)07/11/2025 10:29 AM EDTRespiratory Pnxp4988 10:29 AM EDTOxygen Cbghzaxkbe862%07/11/2025 10:29 AM EDTInhaled Oxygen Concentration--Weight--Height--Body Mass Index-- documented in this encounter Progress Notes * Siria Nair APRN.PROPERTY DAMAGE CLAIMS ADJUSTOR - 07/11/2025 10:36 AM EDT Images from the original note were not included. Rheumatology Outpatient Clinic Date of Service: 07/11/2025 Patient: Shanell Nair Medical Record: [id number] Primary Care Physician: Lisa Bobby MD, MD Referring Provider: Lisseth Villa [address] [facility] [address] [facility] [address] Last Rheumatology visit: None at [facility] Chief complaint: Consult Consultation requested by Lisseth Villa for an opinion regarding joint pain. My final recommendations will be communicated back to the requesting physician by way of shared Medical record or letter torequesting physician via US mail. Recording using [employer] software for draft documentation of the visit was discussed with the patient/authorized sales representative business courses; all questions welcomed and answered. Patient/authorized sales representative business courses agreed to proceed. History of Present Illness Shanell Nair is a 34 year old White female with medical history of DM presents on 07/11/2025 for an in-person visit for evaluation of Consult. History of present illness Shanell is a 34-year-old female with a history of DM and recent skin lesions, presenting for evaluation of joint pain and fatigue. Shanell reports a 2-3 month history of significant fatigue and migratory joint pain, primarily affecting the hips, knees, elbows, and shoulders. The pain was constant, with the most severe symptoms occurring at night, and was accompanied by morning stiffness, particularly in the upper back, requiring assistance with dressing. She describes the pain as rotating between joints, with the back pain being constant and other joint pains migrating. She also notes subtle swelling in the wrists and elbows. The pain was partially alleviated by ibuprofen but not by Tylenol. She denies any recent illness, travel, or tick bites during this period. She also reports episodes of her fingers turning white and feeling cold, primarily during the summer months, without color changes to purple. She denies any significant issues with her feet, shoulders, or Achilles tendons. Approximately one year ago, she experienced intense pain and bone marrow edema in the clavicle, which lasted 2-3 months and was confirmed by MRI. This pain resolved around the time she had a skin lesion excised from her abdomen in June. She recently had another skin lesion excised from her leg on June 11. She reports occasional zinging pain in the clavicle but is currently asymptomatic. She has a family history of autoimmune diseases, including lupus in a maternal aunt and RA and psoriasis in a paternal grandmother. Her father had both hips replaced due to arthritis and has a history of skin cancer. She has one child, almost 2.5 years old, and uses a Mirena IUD for contraception. She denies plans for additional children. Her last was complicated by severe preeclampsia, and she delivered in January 2023. She is currently taking Mounjaro for DM, with her last A1c at 5.4. She previously took Rybelsus butswitched due to insurance coverage. She is not currently taking vitamin D supplements. Review of Systems Review of Systems CONSTITUTION: Negative for: Fever and Recent weight change HEENT: Positive for: Mouth sores Negative for: Nosebleeds, Trouble swallowing and Dry mouth RESPIRATORY: Negative for: Cough, Shortness of breath and Pain with breathing GASTROINTESTINAL: Positive for: Heartburn and Abdominal pain Negative for: Melena and Diarrhea MUSCULOSKELETAL: Positive for: Arthralgias, Myalgias, Muscle weakness, Joint swelling and Morning Joint Stiffness NEUROLOGICAL: Positive for: Headaches and Memory loss Negative for: Numbness SKIN: Negative for: Rash, Skin changes, Hair loss and Nail changes EYES: Positive for: Visual disturbance Negative for: Eye pain, Eye redness and Eye dryness CARDIOVASCULAR: Negative for: Chest pain and Leg swelling GENITOURINARY: Negative for: Dysuria and Hematuria HEMATOLOGIC/LYMPHATIC: Negative for: Swollen glands Labs Labs: - May 2025 - KHOA: Negative - Anti-dsDNA: Negative - Anti-chromatin antibody: Negative - LINUX NETWORK ENGINEER: Negative - Sjogren's antibodies: Negative - Scl-70: Negative - Centromere antibody: Negative - C3: Normal - C4: Normal - Lupus anticoagulant panel: Negative - Rheumatoid factor: Negative - Rheumatoid factor IgA: Normal - Rheumatoid factor IgG: Normal - Rheumatoid factor IgM: 8 (reference <=6), borderline elevated - Anti-CCP: Negative Imaging Last XR Hand/Finger - Impression Only No resulted procedures found. Last MRI Hand - Impression Only No resulted procedures found. 05/2024 MRI left sternoclavicular joint There is bone marrow edema at the [...] unremarkable. Visualized musculature unremarkable. Lung grossly clear. Othersubcutaneous tissues grossly unremarkable. Family History Maternal aunt has lupus. Paternal grandmother had RA and psoriasis. Father has arthritis. Father and grandmother had skin cancer. No family history on file. Past Medical History No past medical history on file. Past Surgical History No past surgical history on file. Allergy ALLERGIES No Known Allergies Social History SOCIAL HISTORY[1] Medications Tried In the Past Ibuprofen, effective Current Medications Current Outpatient Medications Medication Sig empagliflozin (JARDIANCE) 25 mg tablet Take 25 mg by mouth daily with breakfast. MOUNJARO 10 mg/0.5 mL pen injector Inject 12.5 mg subcutaneously one time a week. No current facility-administered medications for this visit. Health Maintenance Current Immunizations Never Reviewed No immunizations on file. Patient-Entered Data PAIN EVALUATION 07/10/2025 1020 Description: Aching;Dull;Radiating;Sore;Stiffness Duration Amount of Time: 2 Duration Units: Months Frequency: Continuous Intervention/Comfort measure: Medication;Reposition;Distractions;Heat;Massage;Pillow support;Positioning Comments: Pain in joints and back PROMIS Assessments 07/10/2025 PROMIS Assessments Physical Health Percentile 15 Mental Health Percentile 34 Pain Score 3 Pain Interference Percentile 27 Fatigue Percentile 12 Physical Function Percentile 46 RAPID 3 [place] Activities of Daily Living 07/10/2025 10:29 AM Dress self? Without ANY difficulty Get in and out of bed? With SOME difficulty Walk outdoors? Without ANY difficulty Wash and dry body? Without ANY difficulty Get in and out of car? Without ANY difficulty RAPID 3 Disease Activity Weighed Score Levels: 0 - 1: Near Remission 1.3 - 2.0: Low Severity 2.3 - 4.0: Moderate Severity 4.3 - 10.0: High Severity 07/10/2025 RAPID-3 Weighed Score RAPID 3 Weighed Score 3.89 (Moderate severity ) Physical Exam VITAL SIGNS: BP 118/86 Pulse 86 Temp 98 Resp 16 SpO2 100% GENERAL APPEARANCE: Appears well SKIN: No rash, thickening, nodules, calcifications, discoloration. EYES: PERRL, EOMI HENT: Normal external examination of the ears and nose, lips, oropharynx and tongue. No oropharyngeal lesions, exudate, or sores. NECK: No mass or asymmetry. NEUROLOGIC: Alert and oriented x 3. Motor exam: Normal muscle strength grossly. Normal bulk and tone. Hands Wrists: pain; swelling; synovitis - MCP: pain; swelling; synovitis - PIP: pain; swelling; synovitis - DIP: pain; swelling; synovitis - MUSCULOSKELETAL EXAMINATION: Soft tissue tender points: None Upper extremities: Shoulders: Full ROM in all directions, no tenderness to palpation. No swelling or effusion. Left clavicle more prominent than right, no current pain. Elbows: Full ROM in flexion and extension. No swelling or effusion. No tenderness to palpation to the joint line, olecranon, medial or lateral epicondyles. Lower extremities: Hips: Full ROM without pain. No tenderness to palpation along greater trochanter, gluteal fossa, or piriformis. Knees: Full ROM in flexion and extension. No swelling or effusion. No tenderness to palpation. Ankles: Full ROM in all arenas. No swelling or effusion. No tenderness to palpation along the jointline, medial/lateral malleolus, ATFL, PTFL, CFL, or Achilles Tendon. Feet: Full ROM in toe flexion/extension. No effusion. No tenderness to palpation. No evidence of MTP swelling. Spine: Cervical spine: No visible abnormalities. Full ROM. No tenderness to palpation. Thoracic spine: No visible abnormalities. No tenderness to palpation. Lumbar spine: No visible abnormalities. Full ROM. No tenderness to palpation SI Joints: No tenderness to palpation. Impression and Plan M05.80 Polyarthritis with positive rheumatoid factor (HCC) (primary encounter diagnosis) I73.00 Raynaud's disease without gangrene E55.9 Vitamin D deficiency L98.9 Skin lesion # Polyarthritis with positive rheumatoid factor (HCC) (M05.80) Intermittent, migratory polyarthralgia with borderline elevated rheumatoid factor (IgM 8, normal <=6) and negative anti-CCP. Differential includes rheumatoid arthritis, palindromic rheumatism, andparaneoplastic syndrome. She is asymptomatic at this time. We can watchful wait. I am wondering if there is an association between her skin lesions and her joint pain. She did have inflammatory process over left sternoclavicular joint that was identified on MRI. Whether this is a autoimmune process or malignancy driven, itis unclear at this time. If her symptoms present more as palindromic rheumatism in the future, we can consider Plaquenil. - Repeat rheumatoid factor today. - I will review skin pathology report when available. - Advised patient to report any recurrence of joint pain promptly for expedited evaluation. - Follow-up in 6 months via virtual visit; sooner if symptoms recur. # Raynaud's disease without gangrene (I73.00) Intermittent blanching and cold sensation in fingers, without progression to cyanosis or gangrene. - Educated patient on Raynaud's phenomenon and advised monitoring for any changes or worsening of symptoms. # Vitamin D deficiency (E55.9) History of low vitamin D levels during ; not currently taking supplementation. - Order vitamin D level today. 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 - Will review pathology report of skin lesion to assess for potential paraneoplastic syndrome. Orders this visit: Office Visit on 07/11/25 VITAMIN D 25 HYDROXY RHEUMATOID FACTOR Amphetamine-Dextroamphetamine (ADDERALL) 30 mg tablet *Discontinued* empagliflozin (JARDIANCE) 25 mg tablet MOUNJARO 10 mg/0.5 mL pen injector I spent a total of 55 minutes on the date of the service which included preparing to see the patient, [id number] patient care, completing clinical documentation, obtaining and/or reviewing separately obtained history, performing a medically appropriate examination, counseling and educating the pat ient/family/caregiver, ordering medications, tests, or procedures, communicating with other HCPs (not separately reported), independently interpreting results (not separately reported), and communicating results to the patient/family/caregiver. This note was partially generated with the assistance of [employer] voice recognition software. An attempt was made to correct any dictation errors however there may be some incorrect words, spellings, and punctuation. JESSICA Saavedra Department of Rheumatic & Immunologic Diseases Medical Specialties [place] [1] documented in this encounter Plan of Treatment DateTypeDepartmentCare Team (Latest Contact Info)Ytahtqzhtwj89/23/2026 8:30 AM EDTDisHenry J. [facility] Rhe[facility]ology [address] [place] [address] Siria Nair APRN.CNP [address] [place] [address] 6 mo follow updocumented as of this encounter Results * RHEUMATOID FACTOR (07/11/2025 11:22 AM EDT)ComponentValueRef RangeTest Method Analysis TimePerformed AtPathologist SignatureRheumatoid Factor<10<16 IU/mL 07/11/2025 10:07 PM EDTCCOMMUNITY REGIONAL [facility] MAIN LABSpecimen (Source)Anatomical Location / LateralityCollection Method / VolumeCollection TimeReceived Time BloodBLOOD SPECIMEN / UnknownVenipuncture / Tttbdnj6107/11/2025 11:22 AM EDT 07/11/2025 11:23 AM EDT Narrative Authorizing ProviderResult TypeResult StatusSiria Nair APRN.CNPLABORATORY Final ResultPerforming OrganizationAddressCity/State/ZIP CodePhone Number [facility] [address] * VITAMIN D 25 HYDROXY (07/11/2025 11:22 AM EDT)ComponentValueRef RangeTest MethodAnalysis TimePerformed AtPathologist SignatureVitamin D 25 Oppjjll58.5 31.0 - 80.0 ng/mL07/11/2025 6:32 PM EDTCCOMMUNITY REGIONAL MEDICAL CENTER MAIN LABComment: Classification of 25 [place] Vitamin D status: Deficiency/Insufficiency: < or = 30 ng/ml. Sufficiency/Optimal Levels: 31-80 ng/mL Toxicity: > 100 ng/mL. Test performed by chemiluminescent immunoassay. Specimen (Source)Anatomical Location / LateralityCollection Method / Volume Collection TimeReceived TimeBloodBLOOD SPECIMEN / UnknownVenipuncture / Unknown 07/11/2025 11:22 AM EDT1 11:23 AM EDT Narrative [facility] - 07/11/2025 6:32 PM EDT The reference range interval was based on an analysis of samples from healthy adults and may not pertain to children from 0-18 years old. Authorizing ProviderResult TypeResult Jessica Nair APRN.CNPLABORATORY Final ResultPerforming OrganizationAddressCity/State/ZIP CodePhone Number [facility] [address] documented in this encounter Visit Diagnoses Diagnosis Polyarthritis with positive rheumatoid factor (HCC)- Primary Raynaud's disease without gangrene Vitamin D deficiency Unspecified vitamin D deficiency Skin lesion Unspecified disorder of skin and subcutaneous tissue documented in this encounter Care Teams Team MemberRelationshipSpecialtyStart DateEnd Date Lisa Bobby MD [address] [facility] [address] [place] [address] PCP - GeneralFamily Medicine05/03/24 Claudia Gilliam MD [address] [facility] [address] [place] [address] ReferringDermatology05/03/24 Lisseth Villa PA-C [address] [facility] [address] [place] [address] ReferringFamily Medicine06/07/25documented as of this encounter
--- OUTSIDE RECORDS SUMMARY | 2025-07-16 08:30 | XMS_ITS | Encounter Summary ---
Author Organization [facility] Address [address] [facility] [place] [address] Care Team Providers Care Wooden Frame Builder Name Role Phone Lisa Bobby MD Primary Care Provider [phone] Reason for Visit * ReasonCommentsWell Women Visit Encounter Details DateTypeDepartmentCare Team (Latest Contact Info)Hpyydnaxmsr48/27/2025 8:30 AM EDTOffice Visit [facility] [address] [place] [address] Davie Church DO [address] [facility] [address] [place], [place] [address] Well woman exam with routine gynecological exam Social History Tobacco UseTypesPacks/DayYears UsedDateSmoking Tobacco: FormerCigarettesQuit: 09/20/2016Smokeless Tobacco: NeverAlcohol UseStandard Drinks/WeekCommentsNever0 (1 standard drink = 0.6 oz pure alcohol)Caffeine: 1-2 cups/day tea, coffeePHQ-2 AnswerDate RecordedPatient Health Questionnaire-2 Anafh418 CommentsNoSex and Gender InformationValueDate RecordedSex Assigned at BirthNot on fileLegal SbrJciflu02/15/2023 7:08 PM EDTGender IdentityNot on fileSexual OrientationNot on filedocumented as of this encounter Last Filed Vital Signs Vital SignReadingTime TakenCommentsBlood Xedbkasm597/7610 8:41 AM EDT Pulse--Temperature--Respiratory Rate--Oxygen Saturation--Inhaled Oxygen Concentration--Eminod397 kg (229 lb 12.8 oz)07/16/2025 8:41 AM EDTHeight--Body Mass Index35.9909 2:00 PM EDTdocumented in this encounter Plan of Treatment DateTypeDepartmentCare Team (Latest Contact Info)Ubzydvdtgsz28/30/2026 8:35 AM EDTOffice Visit [facility] [address] [place] [address] Claudia Gilliam MD [address] [place] [address] 07/22/2026 8:30 AM ESTProcedure Visit [facility] [address] [place] [address] Davie Church DO [address] [facility] [address] [place], [place] [address] NameTypePriorityAssociated DiagnosesOrder SchedulePap SmearPathology and CytologyRoutine Well woman exam with routine gynecological exam Ordered: 07/16/2025HPV DNA probe, amplifiedMicrobiologyRoutine Well woman exam with routine gynecological exam Ordered: 07/16/2025documented as of this encounter Visit Diagnoses Diagnosis Well woman exam with routine gynecological exam Routine gynecological examination documented in this encounter Care Teams Team MemberRelationshipSpecialtyStart DateEnd Date Lisa Bboby MD [address] [facility] [address] [place] [address] PCP - GeneralFamily Medicine02/22/23documented as of this encounter
--- OUTSIDE RECORDS SUMMARY | 2025-07-16 12:19 | XMS_ITS | Encounter Summary ---
Author Organization [facility] Address [address] [place] [address] Care Team Providers Care Law Instructor Name Role Phone Lisa Bobby MD Primary Care Provider [phone] Encounter Details DateTypeDepartmentCare Team (Latest Contact Info)Oeourpvejvg04/27/2025amboo flowsheet [facility] [address] [facility] [place] [address] Davie Church DO [address] [facility] [address] [place], [facility] Social History Tobacco UseTypesPacks/DayYears UsedDateSmoking Tobacco: FormerCigarettesQuit: 09/20/2016Smokeless Tobacco: NeverAlcohol UseStandard Drinks/WeekCommentsNever0 (1 standard drink = 0.6 oz pure alcohol)Caffeine: 1-2 cups/day tea, coffeePHQ-2 AnswerDate RecordedPatient Health Questionnaire-2 Tpwvo350 CommentsNoSex and Gender InformationValueDate RecordedSex Assigned at BirthNot on fileLegal NpyDbxher91/15/2023 7:08 PM EDTGender IdentityNot on fileSexual OrientationNot on filedocumented as of this encounter Plan of Treatment DateTypeDepartmentCare Team (Latest Contact Info)Ltsfnliyiqf80/30/2026 8:35 AM EDTOffice Visit [facility] [address] [place] [address] Claudia Gilliam MD [address] [facility] [address] [place] [address] 07/22/2026 8:30 AM ESTProcedure Visit [facility] [address] [facility] [place] [address] Davie Church DO [address] [facility] [place] [address] documented as of this encounter Visit Diagnoses Not on filedocumented in this encounter Care Teams Team MemberRelationshipSpecialtyStart DateEnd Date Lisa Bobby MD [address] [facility] [address] [place] [address] PCP - GeneralFamily Medicine02/22/23documented as of this encounter
--- OUTSIDE RECORDS SUMMARY | 2025-07-16 12:19 | XMS_ITS | Encounter Summary ---
Author Organization [facility] Address [address] [place] [address] Care Team Providers Care Dag Sprayer Name Role Phone Claudia Gilliam MD Unavailable [phone] Lisa Bobby MD Primary Care Provider [phone] Lisseth Villa PA-C Unavailable [phone] Source Comments In the event this information is protected by the Federal Confidentiality of Alcohol and Drug AbusePatient Records regulations: The Federal rules restrict any use of the information to criminally investigate or prosecute any alcohol or drug abuse patient.[facility] Encounter Details DateTypeDepartmentCare Team (Latest Contact Info)Mbhahhobhgo87/24/2025Telephone Rheumatology [address] [place] [address] Siria Nair APRN.AREA FIELD PERSON [address] [place] [address] Social History Tobacco UseTypesPacks/DayYears UsedDateSmoking Tobacco: Never AssessedPHQ-2 AnswerDate RecordedPHQ-2 xyhxj519/21/2025Area Deprivation IndexAnswerDate RecordedNational Score (1-100), lower number is lower xyjq7484State Score (1-10), lower number is lower zjvl255Data from: https://www.neighborhoodatlas.medicine.[facility].edu/. Last address used for f[address] MOREAU07/11/2025CommentsUnknownSex and Gender InformationValueDate RecordedSex Assigned at BirthNot on fileLegal SexFemale 07/30/2022 12:21 PM ESTGender IdentityNot on fileSexual OrientationNot on file Travel HistoryTravel StartTravel SagCgslfbv47documented as of this encounter Miscellaneous Notes * Telephone Encounter - Michell Tapia - 07/13/2025 9:34 AM EDT Images from the original note were not included. Siria Nair APRN.AREA FIELD PERSON P Ln Rheum Schedulers Please arrange for a virtual visit with me some time. Nothing bad. I reviewed her skin path report.I would like to discuss in detail with her. Thank you! 1st attempt, lvm for patient to call back and schedule No mychart documented in this encounter Plan of Treatment DateTypeDepartmentCare Team (Latest Contact Info)Cwhoivivaxf14/23/2026 8:30 AM EDTDistan [facility] [address] [place] [address] Siria Nair APRN.AREA FIELD PERSON [address] [place] [address] 6 mo follow updocumented as of this encounter Visit Diagnoses Not on filedocumented in this encounter Care Teams Team MemberRelationshipSpecialtyStart DateEnd Date Lisa Bobby MD [address] [place] [address] PCP - GeneralFamily Medicine05/03/24 Claudia Gilliam MD [address] [place] [address] ReferringDermatology05/03/24 Lisseth Villa PA-C [address] [facility] [address] [place] [address] ReferringFamily Medicine06/07/25documented as of this encounter
--- OUTSIDE RECORDS SUMMARY | 2025-07-16 12:19 | XMS_ITS | Encounter Summary ---
Author Organization [facility] Address [address] [facility] [place] [address] Care Team Providers Care Ware Finisher Name Role Phone Lisa Bobby MD Primary Care Provider [phone] Encounter Details DateTypeDepartmentCare Team (Latest Contact Info)Smpagzwdbnq37/23/2025bstract [facility] [address] [facility] [address] [place] [phone] Lisa Bobby MD [address] [facility] [address] [place] [address] Social History Tobacco UseTypesPacks/DayYears UsedDateSmoking Tobacco: FormerCigarettesQuit: 09/20/2016Smokeless Tobacco: NeverAlcohol UseStandard Drinks/WeekCommentsNever0 (1 standard drink = 0.6 oz pure alcohol)Caffeine: 1-2 cups/day tea, coffeePHQ-2 AnswerDate RecordedPatient Health Questionnaire-2 Nxkjc521 CommentsNoSex and Gender InformationValueDate RecordedSex Assigned at BirthNot on fileLegal WdyWzxavf03/15/2023 7:08 PM EDTGender IdentityNot on fileSexual OrientationNot on filedocumented as of this encounter Plan of Treatment DateTypeDepartmentCare Team (Latest Contact Info)Ageziuqlvng41/30/2026 8:35 AM EDTOffice Visit [facility] [address] [place] [address] Claudia Gilliam MD [address] [place] [address] 07/22/2026 8:30 AM ESTProcedure Visit [facility] [address] [facility] [place] [address] Davie Church DO [address] [facility] [place] [address] documented as of this encounter Visit Diagnoses Not on filedocumented in this encounter Care Teams Team MemberRelationshipSpecialtyStart DateEnd Date Lisa Bobby MD [address] [facility] [address] [place] [address] PCP - GeneralFamily Medicine02/22/23documented as of this encounter
--- OUTSIDE RECORDS SUMMARY | 2025-07-16 12:19 | XMS_ITS | Clinical Summary ---
Author Organization [facility] Address [address] [facility] [place] [address] Care Team Providers Care Vest Tailor Name Role Phone Unavailable Primary Care Provider Unavailabl e Source Comments The following information is NOT included in Care Everywhere downloads:Psychiatric notes, ECG results, Cardiac Rehab notes, Pulmonary Function notes, data from SmartForms (includes but not limited toPregnancy data,audiograms, eye exams, pre-surgical evaluation notes, well-child exam data).[facility] Immunizations ImmunizationAdministration DatesNext DueMMR, Ryfhuty-Zgdje-Mnvoboz (CVX=03) 01/22/2023 Social History Tobacco UseTypesPacks/DayYears UsedDateSmoking Tobacco: Never Assessed CommentsUnknownSex and Gender InformationValueDate RecordedSex Assigned at Not on fileLegal CuvYmxsjl28/29/2024 10:48 AM EDTGender IdentityNot on file Sexual OrientationNot on file Plan of Treatment Health MaintenanceDue DateLast DoneCommentsHepatitis C Ynamrivx66/23/2008Tdap Vtprfwf8709/11/2008Hepatitis A (HAV) Vaccine (optional start 19+ years)2009 Hepatitis B (HBV) Vaccine (1 of 3 - 19+ 3-dose series)2009HPV Vaccine (optional start 27-45 years)2017COVID-19 Vaccine (3 - 2024- season) 501/, 09/18/2020Influenza Vaccine (#1)2025Pap Smear 5006/10/2022hingles (RZV) Vaccine (1 of 2)2040HIV TestCompleted 07/16/2022MammographyDiscontinuedPneumococcal Vaccine(s)Aged OutNo longer eligible based on patient's age to [place] [address] [place] [id number]
--- OUTSIDE RECORDS SUMMARY | 2025-07-16 12:19 | XMS_ITS | Clinical Summary ---
Author Organization [facility] Address [address] [place] [address] Care Team Providers Care Vocational Rehabilitation Specialist Name Role Phone Lisa Bobby MD Primary Care Provider [phone] Allergies Active AllergyReactionsCriticalityNoted DateCommentsMetforminGI intoleranceLow 05/23/2025Wound Dressing AhnvgxtbHwvfGwh12/17/2024 Medications MedicationSigDispense QuantityRefillsLast FilledStart DateEnd DateStatus empagliflozin (Jardiance) 25 MG Indications:Type 2 diabetes mellitus with hyperglycemia, without long-term current use of insulin (HCC)Take 1 tablet (25 mg) by mouth in the morning. 360 tablet 02/26/2023ctive Tirzepatide (Mounjaro) 12.5 MG/0.5ML solution auto-injector Indications:Type 2 diabetes mellitus with hyperglycemia, without long-term current use of insulin (HCC)Inject 12.5 mg under the skin 1 (one) time per week 6 mL 5Active amphetamine-dextroamphetamine (Adderall) 30 MG tablet Indications:Attention deficit hyperactivity disorder, predominantly inattentive typeTake 1 tablet (30 mg) by mouth Daily 30 tablet 5Active amphetamine-dextroamphetamine (Adderall) 30 MG tablet Indications:Attention deficit hyperactivity disorder, predominantly inattentive typeTake 1 tablet (30 mg) by mouth Daily 30 tablet 5006/18/2025Discontinued(Reorder) Chlorhexidine Gluconate (Hibiclens) 4 % solution Indications:Prophylactic measureUse once daily in shower, wash from the neck down only, 2 weeks prior to procedure. 30 day supply 473 mL 51DiscontinuedHospital, Clinic, or Other Facility Administered MedicationOrdered DoseRouteFrequencyStart DateEnd DateStatus Levonorgestrel intrauterine device Indications:Encounter for insertion of Mirena MCUEOOuezzasgzt89/27/2023ctive Active Problems ProblemNoted DateDiagnosed DatePolyarthritis with positive rheumatoid factor 06/04/2025lass 1 obesity due to excess calories with serious comorbidity and body mass index (BMI) of 34.0 to 34.9 in adult12/28/2024bnormal CBC12/28/2024 Ermxrhepjojykc96/10/2025Family history of systemic lupus ixpzafhznlysu77/10/2025 Memory loss04/13/2024 Assessment & Plan (04/13/2024 4:08 PM EDT): Add B12 And Folate Watch for Sleep Apnea Check Labs Other ssobyxg7204/13/2024Type 2 diabetes mellitus with hyperglycemia, without long-term current use of zyopqcy7102/26/2023 Assessment & Plan (04/13/2024 4:02 PM EDT): No Tobacco use Follow ADA 1800 diet low carbohydrate Continue Med Compliance Goal LDL less than 100Goal BP 130/80 Goal HgbA1c < 7.0% Monitor Feet, monitor for infection Needs Exercise Yearly eye exams Prior to your visit today we reviewed your chart and outlined testing and treatment needed foryour care. Reviewed poissble complications of diabetes including, loss of vision, kidney failure and increased risk of heart attacks and stroke. We made recommendations on how to control your blood sugars, and minimize your risk of these complications. We discussed your current barriers to a healthy living and importance of healthy diet and exercise. Assessment & Plan (07/06/2023 1:31 PM EDT): No Tobacco use Follow ADA 1800 diet low carbohydrate Continue Med Compliance Goal LDL less than 100Goal BP 130/80 Goal HgbA1c < 7.0% Monitor Feet, monitor for infection Needs Exercise Yearly eye exams Prior to your visit today we reviewed your chart and outlined testing and treatment needed foryour care. Reviewed poissble complications of diabetes including, loss of vision, kidney failure and increased risk of heart attacks and stroke. We made recommendations on how to control your blood sugars, and minimize your risk of these complications. We discussed your current barriers to a healthy living and importance of healthy diet and exercise. Attention deficit hyperactivity disorder, predominantly inattentive type 02/23/2023 Assessment & Plan (04/13/2024 4:02 PM EDT): Patient's Current ADD is controlled with current dose No evidence of overuse or abuse Weight has been stable Encouraged Medication Holidays PDMP reviewed F/U routinely every 4 months Assessment & Plan (11/25/2023 3:50 PM EST): Patient's Current ADD is controlled with current dose No evidence of overuse or abuse Weight has been stable Encouraged Medication Holidays PDMP reviewed F/U routinely every 4 months Assessment & Plan (07/06/2023 1:32 PM EDT): Patient's Current ADD is controlled with current dose No evidence of overuse or abuse Weight has been stable Encouraged Medication Holidays PDMP reviewed F/U routinely every 4 months Excessive or frequent xvaeldacstui82/06/2023astro-esophageal reflux disease without jcnnofrxkem66/06/2023 Resolved Problems ProblemNoted DateDiagnosed DateResolved DateEssential xpydmpfhjgmd72/09/2023 12/28/2024 Assessment & Plan (04/13/2024 4:02 PM EDT): Our specific goals, for your hypertension, is to keep your blood pressure less than 140/90, and theimportance of weight control. We made recommendations on how to control your blood pressure, and minimize your risk of these copmplications. We also discussed your current barriers to a healthy living and importance of healthy diet and exercise. Prior to your visit today we have reviewed your chart and formed a plan to assist with providing you the best possible care. We reviewed the possible complications of hypertension including, stroke, heart failure and kidney impairment. In addition, we discussed your medications, the importance of taking them as prescribed. DASH diet handouts Diabetes pvrjmrvv83Elevated blood pressure affecting in second trimester, antepartum ([facility])/hronic hypertension affecting ([facility])/06/2025Insulin resistance complicating ([facility])/06/2025Pregnancy complicated by pre-existing type 2 diabetes in third trimester ([facility]) Encounters DateTypeDepartmentCare DgyyMaxqllomwcz84/27/2025 8:30 AM EDTOffice Visit [facility] [address] [place] [address] Davie Church, DO Well woman exam with routine gynecological exam07/16/2025amboo flowsheet [facility] [address] [facility] [place] [address] Davie Church DO 07/12/2025bstract [facility] [address] [place] [address] Lisa Bobby MD 07/09/2025Orders Only [facility] [address] [facility] [place] [address] Ana Claudio LPN 06/22/2025 9:10 AM EDTOffice Visit [facility] [address] [place] [address] Myrna Lewis PA Encounter for removal of djnuwpa8406/22/2025amb flowsheet [facility] [place] [facility] [address] [place] [phone] Myrna Lewis PA 06/22/20254496Hzzcbk97/29/2025Refill [facility] [address] [place] [address] Lisseth Villa PA Attention deficit hyperactivity disorder, predominantly inattentive type 06/14/2025Results Follow-Up [facility] [address] [place] [id number] Claudia Gliliam MD Dermatopathology exam06/11/2025 10:00 AM EDTOffice Visit [facility] [address] [place] [phone] Claudia Gilliam MD Neoplasm of unspecified behavior of bone, soft tissue, and skin (Primary Dx) 06/11/2025amboo flowsheet [facility] [place] [facility] [address] [place] [phone] Claudia Gilliam MD 06/11/20257384Qlexlr89/15/2025Results Follow-Up [facility] [address] [facility] [address] [place] [address] Lisseth Villa, PA ANALYZER KHOA, IFA W/ REFLEXT TITER/PATTERN PANEL 2:00 PM EDTOffice Visit [facility] [address] [facility] [address] [place] [phone] Lisseth Villa, PA Type 2 diabetes mellitus with hyperglycemia, without long-term current use of insulin (HCC) (Primary Dx); Class 1 obesity due to excess calories with serious comorbidity and body mass index (BMI) of 34.0 to 34.9 in adult; Attention deficit hyperactivity disorder, predominantly inattentive type ; Family history of systemic lupus hcnnkerdkyeeb34/03/2025amb flowsheet [facility] [address] [facility] [address] [place] [phone] Lisseth Villa PA 05/23/20252262Ktkiue03/02/2025Results Follow-Up [facility] [place] [facility] [address] [place] [phone] Claudia Gilliam MD Dermatopathology exam05/17/2025Telephone [facility] [place] [facility] [address] [place] [phone] Marisabel Walker LPN Ewcqeoq0804/25/2025Telephone [facility] [place] [facility] [address] [place] [phone] Ada Mora LPN Yigjtph5404/18/2025 8:[address] [facility] [address] [place] [address] Claudia Gilliam MD Melanocytic nevus of trunk (Primary Dx); Lentigines; Melanocytic nevus of face, other location; Neoplasm of unspecified behavior of bone, soft tissue, and skin; History of nevus ztwbvisj85/30/2025amboo flowsheet [facility] [address] [facility] [address] [place] [phone] Claudia Gilliam MD 04/18/20257316Uiinvp41/29/2025Refill [facility] [address] [facility] [address] [place] [address] Le Mcclendon LPN Attention deficit hyperactivity disorder, predominantly inattentive type ; Type 2 diabetes mellitus with hyperglycemia, without long-term current use of insulin (HCC)from Last 3 Months Immunizations ImmunizationAdministration DatesNext PxmPNU26,07/07/1991,02/27/1991, 1990DTaP, Kxgazqpyfgm80/07/1996Hep B, Adolescent or Enhbphdib86/26/1999, 06/12/1998,05/08/1998HiB, tizznvddhyz42/15/1992,07/07/1991,02/27/1991,1990 MMR01/22/2023,04/06/2003,02/25/1996,07/04/1992OPV02/25/1996,07/04/1992, 02/27/1991,12/16/1990Prraflhic04/18/2003 Family History Medical HistoryRelationNameCommentsNo Known ProblemsBrother(2)ArthritisFather Deep vein thrombosisFatherHypertensionFatherPulmonary embolismFatherNo Known ProblemsMotherDiabetesOtherMaternal AuntThyroid diseasePaternal Grandmother RelationNameStatusCommentsBrother(2)DaughterWillowAliveFatherAliveMotherAlive OtherMaternal AuntAlivePaternal GrandmotherAlive Social History Tobacco UseTypesPacks/DayYears UsedDateSmoking Tobacco: FormerCigarettesQuit: 09/20/2016Smokeless Tobacco: Never Tobacco Cessation:Counseling Given: Not Answered Alcohol UseStandard Drinks/WeekCommentsNever0 (1 standard drink = 0.6 oz pure alcohol)Caffeine: 1-2 cups/day tea, coffeePHQ-2AnswerDate RecordedPatient Health Questionnaire-2 Jibtr788CommentsNoSex and Gender Information ValueDate RecordedSex Assigned at BirthNot on fileLegal OkyLsrdqx79/15/2023 7:08 PM EDTGender IdentityNot on fileSexual OrientationNot on file Last Filed Vital Signs Vital SignReadingTime TakenCommentsBlood Gseebdpw136/7610 8:41 AM EDT Nccee2364/03/2025 2:00 PM HECGgututpqfrs21.1 ??C (98.8 ??F)08/31/2024 1:32 PM ESTRespiratory Umgo172505/23/2025 2:00 PM EDTOxygen Asbolfxzjw74%05/23/2025 2:00 PM EDTInhaled Oxygen Concentration--Hsdlwm354 kg (229 lb 12.8 oz)07/16/2025 8:41 AM YXFUdvkdn690.2 cm (5' 7 )05/23/2025 2:00 PM EDTBody Mass Index35.9909 2:00 PM EDT Plan of Treatment DateTypeDepartmentCare Team (Latest Contact Info)Izxdlylycna75/30/2026 8:35 AM EDTOffice Visit [facility] [address] [place] [address] Claudia Gilliam MD [address] [place] [address] 07/22/2026 8:30 AM ESTProcedure Visit [facility] [address] [facility] [facility] [place] [address] Davie Church, DO [address] [place] [address] Health MaintenanceDue DateLast DoneCommentsInfluenza Vaccine (#1)05/21/2025 Diabetes: Hemoglobin A1C/11/2024, 12/28/2024, 04/13/2024, Additional history existsDiabetes: Retinopathy Shmzlydmp11/03/2023, 11/25/2020 Diabetes: Urine Protein Mcogwcctj81/08/2024, 12/25/2022, 12/25/2022, Additional history existsHPV/Zozcdt29ervical Cancer Screening 07/06/2027Pap Smear, 06/10/2022 Procedures Procedure NamePriorityDate/TimeAssociated DiagnosisCommentsSKIN REPAIRRoutine 06/11/2025 10:24 AM EDT Neoplasm of unspecified behavior of bone, soft tissue, and skin SKIN OLOTUETKSqhylaj70/22/2025 10:24 AM EDT Neoplasm of unspecified behavior of bone, soft tissue, and skin DERMATOPATHOLOGY FWIHXpxbacp94/22/2025 12:00 AM EDT Neoplasm of unspecified behavior of bone, soft tissue, and skin ANALYZER KHOA, IFA W/ REFLEXT TITER/PATTERN PANEL 4Adnkydt53/04/2025 3:59 PM EDT POCT GLYCATED HEMOGLOBIN, IJPRGAtviryp24/03/2025 2:02 PM EDT Type 2 diabetes mellitus with hyperglycemia, without long-term current use of insulin (HCC) SKIN / NAIL SVESYAVhsstcb19/30/2025 8:42 AM EDT Neoplasm of unspecified behavior of bone, soft tissue, and skin SKIN / NAIL USPMNSDlmlqav04/30/2025 8:38 AM EDT Neoplasm of unspecified behavior of bone, soft tissue, and skin ZZDERMATOPATHOLOGY EXAM MVBFSQEBBEXTawuahu42/30/2025 12:00 AM EDT Melanocytic nevus of trunk Neoplasm of unspecified behavior of bone, soft tissue, and skin DERMATOPATHOLOGY YSSWKdsnqik99/30/2025 12:00 AM EDT Neoplasm of unspecified behavior of bone, soft tissue, and skin MICROALBUMIN / CREATININE URINE HHRMFXpdqrkf24/12/2024 2:57 PM EST Type 2 diabetes mellitus with hyperglycemia, without long-term current use of insulin (HCC) PAP TEST, JCOFJTNDYmebnkp11/17/2024 12:00 AM EDTDIABETIC RETINOPATHY SCREENING - OU - BOTH MLLHXnranph08/07/2023 THINPREP TIS PAP REFLEX HPV MRNA E6/E7 (48396)Mygdkfe8406/10/2022 from Last 3 Months or Most Recently Relevant to Health Maintenance Results * Skin repair (06/11/2025 10:24 AM EDT) Narrative Katherin Capellan MA - 06/11/2025 10:24 AM EDT Complexity: Intermediate Final length (cm): ??3 Reason for type of repair: allow closure of the large defect ?? Undermining: edges undermined ?? Undermining comment: ??The surrounding tissue was undermined until the skin edges could be approximated without undue tension. Any tissue redundancies were removed. Subcutaneous layers (deep stitches): Suture size: ??3-0 Suture type comment: ??Biosyn Stitches: ??Buried horizontal mattress (Closure was performed in a layered fashion with subcutaneous tissue closed first using tension-bearing absorbable sutures to the level of the superficial fascia.) Fine/surface layer approximation (top stitches): Suture size: ??4-0 Suture type: Prolene (polypropylene) ?? Stitches: simple running ?? Stitches comment: ??Epicuticular skin sutures were then placed with minimal tension. Suture removal (days): ??14 Outcome: patient tolerated procedure well with no complications ?? Post-procedure details: sterile dressing applied and wound care instructions given ?? Post-procedure details comment: ??It was emphasized to the patient to contact the office for any signs of infection, uncontrollable bleeding, or complications. Dressing type: bandage ?? Authorizing ProviderResult TypeResult StatusEmily A Petitti MDDERM PROCEDURE ORDERABLESFinal Result * Skin excision (06/11/2025 10:24 AM EDT) Fede VyasSTIVEN jansen - 06/11/2025 10:24 AM EDT Lesion length (cm): 0.5 Lesion width (cm): ??0.5 Margin per side (cm): ??0.3 Total excision diameter (cm): ??1.1 Informed consent: discussed and consent obtained ?? Informed consent comment: ??Risks and possible complications were discussed as noted on the consent form. The consent form was signed prior to the procedure. Timeout: patient name, date of , surgical site, and procedure verified ?? Timeout comment: ??Patient and provider identified site. Site was marked and excision was drawn out. Photo was taken and shown to patient, patient verified this is the correct site. Procedure prep: ??Patient was prepped and draped in usual sterile fashion (The planned incision lines were drawn along relaxed skin tension lines, if possible, to minimize scarring and deformity of surrounding structures.) Prep type: ??Chlorhexidine Anesthesia: the lesion was anesthetized in a standard fashion ?? Anesthesia comment: ??The local anesthetic was injected to create a field block at the site of the procedure. Anesthetic: ??1% lidocaine w/ epinephrine 1-100,000 buffered w/ 8.4% NaHCO3 Instrument used: #15 blade ?? Instrument used comment: ??Incisions were made as drawn, and the surrounding tissue was undermined until the skin edges could be approximated without undue tension. Any tissue redundancies were removed. Hemostasis achieved with: electrodesiccation ?? Additional details: ??Amount of lidocaine used: 8.0 ml Estimated blood loss: <1.0 ml Authorizing ProviderResult TypeResult StatusEmily A Petitti MDDERM PROCEDURE ORDERABLESFinal Result * Dermatopathology exam (06/11/2025 12:00 AM EDT)ComponentValueRef RangeTest MethodAnalysis TimePerformed AtPathologist SignatureSPECIMEN TYPE SPECIMEN: LEFT THIGH - ANTERIOR [facility] ICD10 CodeD23.70AURORA DIAGNOSTICSPROTOCOLEXC - EXCISIONAURORA DIAGNOSTICS Final DiagnosisSCAR AND WOUND REPAIR REACTION, EXCISED (SEE COMMENT). COMMENT: A residual or recurrent melanocytic lesion is not seen. This case is reviewed in conjunction with the previous biopsy as listed in the case history summary. [facility] DIAGNOSTICSGross Text 0.5x0.5cm scar 0.3cm from margin 2 blocks, (tips in 1) (4 in 2) (nilsa/carlin) (06/13/25) [facility]NOSTICSMicroscopic DescriptionMicroscopic examination performed. [facility] SWUMROJGTCQVML24157*1AUR[facility]A DIAGNOSTICSSpecimen (Source)Anatomical Location / LateralityCollection Method / VolumeCollection TimeReceived TimeSkin Topography unknown / Cgnyvto8306/11/2025 10:24 AM EDTComment:Differential Diagnosis: Moderately atypical nevus Check Margins: Yes Size of lesion: 0.5 x 0.5 cm Previous accession number: [id number] Narrative Authorizing ProviderResult TypeResult StatusEmily Cherri [place] PATHOLOGY ORDERABLESFinal ResultPerforming OrganizationAddressCity/State/ZIP CodePhone Number [facility] * (ABNORMAL) ANALYZER KHOA, IFA W/ REFLEXT TITER/PATTERN PANEL 1 (05/24/2025 3:59 PM EDT)ComponentValueRef RangeTest MethodAnalysis TimePerformed AtPathologist SignatureANA SCREEN, IFANEGATIVENEGATIVEQUESTComment: KHOA IFA is a first line screen for detecting the presence of up to approximately 150 autoantibodies in various autoimmune diseases. A negative KHOA IFA result suggests an KHOA-associated autoimmune disease is not present at this time, but is not definitive. If there is high clinical suspicion for Sjogren's syndrome, testing for anti-SS-A/Ro antibody should be considered. Anti-Ludivina-1 antibody should be considered for clinically suspected inflammatory myopathies. AC-0: Negative International Consensus on KHOA Patterns https://doi.org/10.[facility]5/symw-7643-9355 For additional information, please refer to http://education.[employer]/faq/UXM651 (This link is being provided for informational/educational purposes only.) DNA AB (DS) CRITHIDIA,IFANEGATIVENEGATIVEQUESTCHROMATIN (NUCLEOSOMAL) ANTIBODY <1.0 NEG<1.0 NEGATIVE AIQUESTSM ANTIBODY<1.0 NEG<1.0 NEGATIVE AIQUESTSM/CONSUMER SALES REPRESENTATIVE ANTIBODY<1.0 NEG<1.0 NEGATIVE AIQUESTRNP ANTIBODY<1.0 NEG<1.0 NEGATIVE AIQUEST SJOGREN'S ANTIBODY (SS-A)<1.0 NEG<1.0 NEGATIVE AIQUESTSJOGREN'S ANTIBODY (SS-B) <1.0 NEG<1.0 NEGATIVE AIQUESTSCL-70 ANTIBODY<1.0 NEG<1.0 NEGATIVE AIQUESTJO-1 ANTIBODY<1.0 NEG<1.0 NEGATIVE AIQUESTCENTROMERE B ANTIBODY<1.0 NEG<1.0 NEGATIVE AIQUESTCOMPLEMENT COMPONENT [id number] - 193 mg/dLQUESTCOMPLEMENT COMPONENT C4C17 15 - 57 mg/dLQUESTCARDIOLIPIN AB (IGA)<2.0APL-U/mLQUESTComment: Value ?Interpretation ----- ? <20.0 Antibody not detected > or = 20.0 Antibody detected CARDIOLIPIN AB (IGG)<2.0GPL-U/mLQUESTComment: Value ?Interpretation ----- ? <20.0 Antibody not detected > or = 20.0 Antibody detected CARDIOLIPIN AB (IGM)<2.0MPL-U/mLQUESTComment: Value ?Interpretation ----- ? <20.0 Antibody not detected > or = 20.0 Antibody detected B2 GLYCOPROTEIN I (IGA)AB<2.0U/mLQUESTComment: Value ?Interpretation ----- ? <20.0 Antibody not detected > or = 20.0 Antibody detected B2 GLYCOPROTEIN I (IGG)AB<2.0U/mLQUESTComment: Value ?Interpretation ----- ? <20.0 Antibody not detected > or = 20.0 Antibody detected B2 GLYCOPROTEIN I (IGM)AB<2.0U/mLQUESTComment: The antiphospholipid antibody syndrome (APS) is a clinical-pathologic correlation that includes a clinical event (e.g. arterial or venous thrombosis, morbidity) and persistent positive antiphospholipid antibodies (IgM, IgG Cardiolipin or b2GPI antibodies greater than the 99th percentile; or a lupus anticoagulant). International consensus guidelines for APS suggest waiting at least 12 weeks before retesting to confirm antibody persistence. The Systemic Lupus International Collaborating Clinics immunological classification criteria for systemic lupus erythematosus (SLE) include testing for isotype IgA, which has yet to be incorporated into APS criteria. Low level antiphospholipid antibodies may sometimes be detected in the setting of infection, drug therapy or aging. For additional information, please refer to http://education.[employer]MyForex.com/faq/JUB776 (This link is being provided for informational/educational purposes only.) Value ?Interpretation ----- ? <20.0 Antibody not detected > or = 20.0 Antibody detected RHEUMATOID FACTOR (IGA)<5UQUESTComment: ?Reference Range: <=6 NEGATIVE >6 POSITIVE RHEUMATOID FACTOR (IGG)5UQUESTComment: ?Reference Range: <=6 NEGATIVE >6 POSITIVE RHEUMATOID FACTOR (IGM)8(H)UQUESTComment: ?Reference Range: <=6 NEGATIVE >6 POSITIVE CYCLIC CITRULLINATED PEPTIDE (CCP) AB (IGG)<16UnitsQUESTComment: ?Reference Range: ?NEGATIVE: <20 ?WEAK POSITIVE: ? 20-39 ?MODERATE POSITIVE: ? 40-59 ?STRONG POSITIVE >59 MUTATED CITRULLINATED VIMENTIN (MCV) AB<20<20 U/mLQUESTComment: Anti-mutated citrullinated vimentin antibody may be used as a second-line marker of rheumatoid arthritis, in addition to rheumatoid factor and anti-cyclic citrullinated peptide (CCP). THYROID PEROXIDASE ANTIBODIES<1<9 IU/mLQUESTSpecimen (Source)Anatomical Location / LateralityCollection Method / VolumeCollection TimeReceived Time05/24/2025 3:59 PM EDT05/24/2025 4:00 PM EDT Narrative Resulting Agency Comment Performing Organization Information ?Site ID: [id number] ?Name: [facility], ?Address: [address] [place] [address] ?Director: Elsie Grayson MD,PhD,MARQUEZ Authorizing ProviderResult TypeResult StatusLisseth Villa PALAB BLOOD ORDERABLESFinal ResultPerforming OrganizationAddressCity/State/ZIP CodePhone Number [facility] * POCT Glycated hemoglobin, total (05/23/2025 2:02 PM EDT)ComponentValueRef RangeTest MethodAnalysis TimePerformed AtPathologist SignatureHemoglobin A1C 5.1Specimen (Source)Anatomical Location / LateralityCollection Method / Volume Collection TimeReceived QrwkSwhot28/03/2025 2:02 PM EDT Narrative Authorizing ProviderResult TypeResult Luca Villa PAPOINT OF CARE TEST ENTER/EDIT ORDERABLESFinal Result * Lesion biopsy (04/18/2025 8:42 AM EDT) Narrative Olive Olguin MA - 04/18/2025 8:42 AM EDT Type of biopsy: tangential Informed consent: discussed and consent obtained ?? Informed consent comment: ??The risks and benefits of the biopsy were discussed. Risks include but are not limited to bleeding, infection, scarring, pain, and nerve damage. An opportunity to ask questions prior to the procedure was permitted and all questions were answered. Patient was prepped and draped in usual sterile fashion: area cleansed with alcohol. Anesthesia: the lesion was anesthetized in a standard fashion ?? Anesthetic: ??1% lidocaine w/ epinephrine 1-100,000 buffered w/ 8.4% NaHCO3 Instrument used: DermaBlade ?? Hemostasis achieved with: electrodesiccation ?? Outcome: patient tolerated procedure well ?? Outcome comment: ??The specimen was placed in a prelabeled formalin container to be sent for pathology Post-procedure details: sterile dressing applied and wound care instructions given ?? Post-procedure details comment: ??Emphasized need to contact clinic for any signs of infection, uncontrollable bleeding, or complications. Dressing type: bandage ?? Additional details: ??Photo taken Amount of lidocaine used: 1.0 cc Authorizing ProviderResult TypeResult StatusEmphillip Gilliam MDDERM PROCEDURE ORDERABLESFinal Result * Lesion biopsy (04/18/2025 8:38 AM EDT) Narrative Olive Olguin MA - 04/18/2025 8:38 AM EDT Type of biopsy: tangential Informed consent: discussed and consent obtained ?? Informed consent comment: ??The risks and benefits of the biopsy were discussed. Risks include but are not limited to bleeding, infection, scarring, pain, and nerve damage. An opportunity to ask questions prior to the procedure was permitted and all questions were answered. Patient was prepped and draped in usual sterile fashion: area cleansed with alcohol. Anesthesia: the lesion was anesthetized in a standard fashion ?? Anesthetic: ??1% lidocaine w/ epinephrine 1-100,000 buffered w/ 8.4% NaHCO3 Instrument used: DermaBlade ?? Hemostasis achieved with: suture and electrodesiccation ?? Outcome: patient tolerated procedure well ?? Outcome comment: ??The specimen was placed in a prelabeled formalin container to be sent for pathology Post-procedure details: sterile dressing applied and wound care instructions given ?? Post-procedure details comment: ??Emphasized need to contact clinic for any signs of infection, uncontrollable bleeding, or complications. Dressing type: bandage ?? Additional details: ??Photo taken Amount of lidocaine used: 1.0 cc Authorizing ProviderResult TypeResult StatusEmily A Petitti MDDERM PROCEDURE ORDERABLESFinal Result * Dermatopathology exam (04/18/2025 12:00 AM EDT)ComponentValueRef RangeTest MethodAnalysis TimePerformed AtPathologist SignatureSPECIMEN TYPE SPECIMEN: LEFT THIGH-ANTERIOR VLAD [id number] Code D48.5AURORA DIAGNOSTICSPROTOCOLF - FLATAURORA DIAGNOSTICSFinal Diagnosis ATYPICAL COMPOUND MELANOCYTIC NEOPLASM (SEE COMMENT). COMMENT: This material was reviewed with [id number] B from the abdomen, which showed a compound nevuswith focal epithelioid cell change and BAP 1 inactivation. ??Although the current lesion shows BAP 1 preservation, loss of BAP 1 expression may be seen in patients at risk for additional melanomas, including uveal melanomas. Although the current lesion shows focal architectural features reminiscent of a Spitz nevus, there is significant atypia and disarray. ??The immunohistochemical profile with focal loss of p16, PRAME positivity and negative BRAF studies are not diagnostic of melanoma. FISH analysis indicates a borderline positive melanocytic lesion. ??The possibility ofevolving melanoma was considered, however, the above-noted workup is not diagnostic. ?? Full-thickness reexcision with a margin of uninvolved skin and clinical follow-up of this patient are recommended. ??This material was reviewed with Bonnie. Nakul Tamayo Winfield and Augusto. The FISH analysis report is sent under separate cover.VLAD DIAGNOSTICSGross TextAURORA DIAGNOSTICSMicroscopic DescriptionThis bisected shave-type specimen shows a proliferation of large, pleomorphic epithelioid melanocytes arranged in nests along the dermal epidermal junction. ??They are focally noted in inter rete spaces and around follicular epithelium. ??The dermis contains nests of similar and slightly smaller melanocytes, which extend in an interstitial distribution among collagen bundles and are associated with patchy lymphocytic infiltrates. ??Deeper sections show a similar melanocytic proliferation. Immunohistochemical stains to further delineate the nature of this process were obtained at [facility], [address] [place] [address] and read at [facility]. ??P16 stains with adequate controls, which were repeated because of technical problems, show partial loss of p16 staining of the dermal component. ??PRAME stains with adequate controls show nuclear staining within the epidermis and intradermal melanocytes.??BRAF V 600 E with adequate controls fails to hodan melanocytes and show focal collections of melanin within multinucleated giant cells. ??BAP 1 stainswith adequate controls show preservation of BAP 1 expression. FISH stains were obtained and show borderline positive features. 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.VLAD DIAGNOSTICSGross TextAURORA DIAGNOSTICSMicroscopic DescriptionMicroscopic examination performed.VLAD GFPLWVUVQTFPOL40235*2 A57287*3 F04143*1 VLAD DIAGNOSTICSSpecimen (Source)Anatomical Location / LateralityCollection Method / VolumeCollection TimeReceived TimeSkin (tissue) specimen (specimen) Topography unknown / Afazzvd6204/18/2025 8:38 AM EDTComment:Differential Diagnosis: atypical mole vs melanoma Check Margins: No Size of lesion: 0.5 x 0.5 cm Diagnosis: (D22.5) Melanocytic nevus of trunk (primary encounter diagnosis) (L81.4) Lentigines (D22.39) Melanocytic nevus of face, other location (D49.2) Neoplasm of unspecified behavior of bone, soft tissue, and skin Plan: Lesion biopsy Skin (tissue) specimen (specimen)Topography unknown / Qfixgfc5004/18/2025 8:42 AM EDTComment:Differential Diagnosis: inflamed nevus vs acrochordon Check Margins: No Size of lesion: 0.4 x 0.4 cm Diagnosis: (D22.5) Melanocytic nevus of trunk (primary encounter diagnosis) (L81.4) Lentigines (D22.39) Melanocytic nevus of face, other location (D49.2) Neoplasm of unspecified behavior of bone, soft tissue, and skin Plan: Lesion biopsy, Lesion biopsy Narrative Authorizing ProviderResult TypeResult StatusEmily Cherri [facility] PATH[facility]Y ORDERABLESFinal ResultPerforming OrganizationAddressCity/State/ZIP CodePhone Number [facility] * Microalbumin / creatinine, urine ratio (08/31/2024 2:57 PM EST)ComponentValue Ref RangeTest MethodAnalysis TimePerformed AtPathologist SignatureCREATININE, RANDOM [id number] - 275 mg/dLQUESTALBUMIN, URINE0.4See Note: mg/dLQUESTComment: Reference Range: Reference Range Not established ALBUMIN/CREATININE RATIO, RANDOM URINE6<30 mg/g creatQUESTComment: The ADA defines abnormalities in albumin excretion as follows: Albuminuria Category ?Result (mg/g creatinine) Normal to Mildly increased <30 Moderately increased ? 30-299 Severely increased > OR = 300 The ADA recommends that at least two of three specimens collected within a 3-6 month period be abnormal before considering a patient to be within a diagnostic category. Specimen (Source)Anatomical Location / LateralityCollection Method / Volume Collection TimeReceived TimeUrineUrine specimen obtained by clean catch procedure / Gyrlabu0508/31/2024 2:57 PM EST08/31/2024 2:57 PM EST Narrative [facility] - 09/01/2024 2:55 PM EST FASTING:UNKNOWN FASTING: UNKNOWN Resulting Agency Comment Performing Organization Information ?Site ID: [id number] ?Name: [facility] ?Address: [address] [place] [address], [address] [place] [id number] ?Director: Ke Galeana MD Authorizing ProviderResult TypeResult StatusLisseth Iraheta Hemmigel PALAB URINE ORDERABLESFinal ResultPerforming OrganizationAddressCity/State/ZIP CodePhone Number [facility] * PAP TEST, EXTERNAL (07/06/2024 12:00 AM EDT) Narrative Authorizing ProviderResult TypeResult StatusFazio Nurse Noms Bcp ObLAB CYTOLOGY ORDERABLESFinal ResultPerforming OrganizationAddressCity/State/ZIP CodePhone Number EXTERNAL LAB * Diabetic Retinopathy Screening - OU - Both Eyes (08/26/2023)Anatomical Region LateralityModalityHeadOtherSpecimen (Source)Anatomical Location / Laterality Collection Method / VolumeCollection TimeReceived Time08/26/2023 Narrative 08/26/2023 10:56 AM EST normal Authorizing ProviderResult TypeResult StatusLisa Bobby MDOPHTH PHOTOGRAPHY Final Result * THINPREP TIS PAP REFLEX HPV MRNA E6/E7 (44838) (06/10/2022)ComponentValueRef RangeTest MethodAnalysis TimePerformed AtPathologist SignatureCLINICAL INFORMATION:None givenNOMS LEGACY EXTERNAL LABLMP:NONE GIVENNOMS LEGACY EXTERNAL LABPREV. PAP:NONE GIVENNOMS LEGACY EXTERNAL LABPREV. BX:NONE GIVEN [facility] EXTERNAL LABSOURCE:None givenNOMS LEGACY EXTERNAL LABSTATEMENT OF ADEQUACY:SEE COMMENTNOMS LEGACY EXTERNAL LABComment: Satisfactory for evaluation. Endocervical/transformation zone component present. INTERPRETATION/RESULT:Negative for intraepithelial lesion or malignancy.[facility] EXTERNAL LABINFECTION:Shift in vaginal tania suggestive of bacterial vaginosis.[facility] EXTERNAL LABCOMMENT:This Pap test has been evaluated with computer assisted technology.[facility] EXTERNAL LABCYTOTECHNOLOGIST:SEE COMMENTNOMS LEGACY EXTERNAL LABComment: BH, CT(ASCP) CT screening location: [facility], [address] [place] [address]. COMMENTSEE COMMENTNOMS LEGACY EXTERNAL LABComment: EXPLANATORY NOTE: The Pap is a screening test for cervical cancer. It is not a diagnostic test and is subject to false negative and false positive results. It is most reliable when a satisfactory sample, regularly obtained, is submitted with relevant clinical findings and history, and when the Pap result is evaluated along with historic and current clinical information. Specimen (Source)Anatomical Location / LateralityCollection Method / Volume Collection TimeReceived Time06/10/2022 Narrative Authorizing ProviderResult TypeResult StatusKelly REYES LABSFinal ResultPerforming OrganizationAddressCity/State/ZIP CodePhone Number [facility] from Last 3 Months or Most Recently Relevant to Health [place] [address] Care Teams Team MemberRelationshipSpecialtyStart DateEnd Date Lisa Bobby MD [address] [facility] 110 [place] [address] [facility]CP [facility]02/22/23
--- OUTSIDE RECORDS SUMMARY | 2025-07-16 12:19 | XMS_ITS | Encounter Summary ---
Author Organization [facility] Address [address] [place] [address] Care Team Providers Care Water Resource Manager Name Role Phone Claudia Gilliam MD Unavailable [phone] Lisa Bobby MD Primary Care Provider [phone] Lisseth Villa PA-C Unavailable [phone] Source Comments In the event this information is protected by the Federal Confidentiality of Alcohol and Drug AbusePatient Records regulations: The Federal rules restrict any use of the information to criminally investigate or prosecute any alcohol or drug abuse patient.[facility] Encounter Details DateTypeDepartmentCare Team (Latest Contact Info)Uesseeciuxu64/24/2025Results Follow-Up Rheumatology [address] [place] [address] Siria Nair APRN.SERVICE OR WORK DISPATCHER CHIEF [address] [place], [place] [id number] Social History Tobacco UseTypesPacks/DayYears UsedDateSmoking Tobacco: Never AssessedPHQ-2 AnswerDate RecordedPHQ-2 rorue486/21/2025Area Deprivation IndexAnswerDate RecordedNational Score (1-100), lower number is lower iotw2017State Score (1-10), lower number is lower dzgl170Data from: https://www.neighborhoodatlas.medicine.[facility].edu/. Last address used for lzaypj[address]07/11/2025CommentsUnknownSex and Gender InformationValueDate RecordedSex Assigned at BirthNot on fileLegal SexFemale 07/30/2022 12:21 PM ESTGender IdentityNot on fileSexual OrientationNot on file Travel HistoryTravel StartTravel VdoCldhzid20documented as of this encounter Plan of Treatment DateTypeDepartmentCare Team (Latest Contact Info)Balrdehckfj08/23/2026 8:30 [facility] [address] [place], [place] [id number] Siria Nair APRN.SERVICE OR WORK DISPATCHER CHIEF [address] [place] [address] 6 mo follow updocumented as of this encounter Visit Diagnoses Not on filedocumented in this encounter Care Teams Team MemberRelationshipSpecialtyStart DateEnd Date Lisa Bobby MD [address] [facility] 110 [place] [address] PCP - GeneralFamily Medicine05/03/24 Claudia Gilliam MD [address] [facility] [address] [place] [address] ReferringDermatology05/03/24 Lisseth Villa PA-C [address] [facility] [address] [place] [address] ReferringFamily Medicine06/07/25documented as of this encounter
--- OUTSIDE RECORDS SUMMARY | 2025-07-16 12:19 | XMS_ITS | Clinical Summary ---
Author Organization [facility] Address [address] [place] [address] Care Team Providers Care Stave Planer Tender Name Role Phone Claudia Gillima MD Unavailable [phone] Lisa Bobby MD Primary Care Provider Lisseth Villa PA-C Unavailable [phone] Allergies No known active allergies Medications MedicationSigDispense QuantityRefillsLast FilledStart DateEnd DateStatus empagliflozin (JARDIANCE) 25 mg tablet Take 25 mg by mouth daily with breakfast.02/26/2023ctive MOUNJARO 10 mg/0.5 mL pen injector Inject 12.5 mg subcutaneously one time a week.Active Amphetamine-Dextroamphetamine (ADDERALL) 30 mg tablet Take 30 mg by mouth once daily./iscontinued(Parker Duplicate Med) Active Problems ProblemNoted DateDiagnosed XhdhIotmzjmtsbhqve49/22/2025Family history of systemic lupus vhfcnulprujru99/10/2025Type 2 diabetes mellitus with hyperglycemia, without long-term current use of dncfyew9002/26/2023astro- esophageal reflux disease without vrpjnnutgby32/06/2023ttention deficit hyperactivity disorder, predominantly inattentive type02/23/2023hronic hypertension affecting gjlgvibmw10/21/2023 Encounters DateTypeDepartmentCare PizkEyqquizvavw56/24/2025Telephone Rheumatology [address] [place] [phone] Siria Nair APRN.COURT LIAISON 07/13/2025Results Follow-Up Rheumatology [address] [place] [address] Siria Nair APRN.COURT LIAISON 07/11/2025 10:30 AM EDTOffice Visit Rheumatology [address] [facility] [place] [address] Siria Nair APRN.COURT LIAISON 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 Last address used for dgmlbnrrejo[address] [facility]07/11/2025CommentsUnknownSex and Gender InformationValueDate RecordedSex Assigned at BirthNot on fileLegal SexFemale 07/30/2022 12:21 PM ESTGender IdentityNot on fileSexual OrientationNot on file Travel HistoryTravel StartTravel MwyJnnltju70/06/622113 Last Filed Vital Signs Vital SignReadingTime TakenCommentsBlood Oesccczd929/8607/11/2025 10:29 AM EDT Ggrlu954407/11/2025 10:29 AM ZSTZbvtqaxknat95.7 ??C (98 ??F)07/11/2025 10:29 AM EDTRespiratory Unsx1557 10:29 AM EDTOxygen Zihqgmqxrv735%07/11/2025 10:29 AM EDTInhaled Oxygen Concentration--Weight--Height--Body Mass Index-- Plan of Treatment DateTypeDepartmentCare Team (Latest Contact Info)Gdudooicjdd39/23/2026 8:30 AM EDTDistance Health Rheumatology [address] [facility] [place] [address] Siria Nair APRN.COURT LIAISON [address] [place] [address] 6 mo follow upHealth MaintenanceDue DateLast DoneCommentsDiabetic Foot Exam 2000Dilated Retinal Exam2000DTaP,Tdap,Td Vaccine (6 - Tdap) , 07/04/1992, 07/07/1991, Additional history existsAnnual PCP Team Chronic Disease Visit2008nxiety Idhdrkpis14/23/2008Depression Zyoaxuwnu94/23/2008HIV Gvmstjvya75/23/2008Hepatitis C Sewbinzqj13/23/2008LDL Kqgdtuoihlv03/23/2008Pneumococcal Vaccine (1 of 2 - PCV)2009Cervical Cancer Dcfeinrxi27/23/2011HPV Vaccine (1 - 3-dose SCDM series)2017Urine Albumin:Creatinine Ratio/, 11/05/2022, 09/04/2022, Additional history existsCovid-19 Vaccine (3 - 2024- season)501/, 09/18/2020Influenza Vaccine (#1)05/21/20257720IaV0C06/11/2024, 04/13/2024 Hepatitis B FwbftalLgwbthzmw16/26/1999, 06/12/1998, 05/08/1998 Procedures Procedure NamePriorityDate/TimeAssociated DiagnosisCommentsRHEUMATOID FACTOR BL Bbrrxup3007/11/2025 11:22 AM EDT Polyarthritis with positive rheumatoid factor (HCC) VITAMIN D 25 USSBJAWZhkaixm65/22/2025 11:22 AM EDT Vitamin D deficiency from Last 3 Months Results * VITAMIN D 25 HYDROXY (07/11/2025 11:22 AM EDT)ComponentValueRef RangeTest MethodAnalysis TimePerformed AtPathologist SignatureVitamin D 25 Duttcfe80.5 31.0 - 80.0 ng/mL07/11/2025 6:32 PM EDTCHOLZER MEDICAL CENTER [facility] MAIN LABComment: Classification of 25 [place] Vitamin D status: Deficiency/Insufficiency: < or = 30 ng/ml. Sufficiency/Optimal Levels: 31-80 ng/mL Toxicity: > 100 ng/mL. Test performed by chemiluminescent immunoassay. Specimen (Source)Anatomical Location / LateralityCollection Method / Volume Collection TimeReceived TimeBloodBLOOD SPECIMEN / UnknownVenipuncture / Unknown 07/11/2025 11:22 AM EDT1 11:23 AM EDT Narrative [facility] - 07/11/2025 6:32 PM EDT The reference range interval was based on an analysis of samples from healthy adults and may not pertain to children from 0-18 years old. Authorizing ProviderResult TypeResult StatusSiria Nair APRN.CNPLABORATORY Final ResultPerforming OrganizationAddressCity/State/ZIP CodePhone Number [facility] [address] * RHEUMATOID FACTOR (07/11/2025 11:22 AM EDT)ComponentValueRef RangeTest Method Analysis TimePerformed AtPathologist SignatureRheumatoid Factor<10<16 IU/mL 07/11/2025 10:07 PM EDTCPARKVIEW HEALTH [facility]ONTPELI[facility] LABSpecimen (Source)Anatomical Location / LateralityCollection Method / VolumeCollection TimeReceived Time BloodBLOOD SPECIMEN / UnknownVenipuncture / Fjrqpyc1407/11/2025 11:22 AM EDT 07/11/2025 11:23 AM EDT Narrative Authorizing ProviderResult TypeResult StatusSiria Nair APRN.CNPLABORATORY Final ResultPerforming OrganizationAddressCity/State/ZIP CodePhone Number [facility] [address] from Last [address] [address] Care Teams Team MemberRelationshipSpecialtyStart DateEnd Date Lisa Bobby MD [address] [facility] [address] [place] [address] PCP - GeneralFamily Medicine05/03/24 Claudia Gilliam MD [address] [facility] 350 [place], [place] [phone] ReferringDermatology05/03/24 Lisseth Villa, PA-C [address] [facility] [address] [place] [address] ReferringGr[facility] Medicine06/07/25
--- OUTSIDE RECORDS SUMMARY | 2025-07-16 12:19 | XMS_ITS | Encounter Summary ---
Author Organization [facility] Address [address] [place] [address] Care Team Providers Care Manager Perioperative Name Role Phone Lisa Bobby MD Primary Care Provider [phone] Encounter Details DateTypeDepartmentCare Team (Latest Contact Info)Sygixijlziw66/20/2025Orders Only [facility] [address] [place] [address] Ana Claudio LPN [address] [facility] Social History Tobacco UseTypesPacks/DayYears UsedDateSmoking Tobacco: FormerCigarettesQuit: 09/20/2016Smokeless Tobacco: NeverAlcohol UseStandard Drinks/WeekCommentsNever0 (1 standard drink = 0.6 oz pure alcohol)Caffeine: 1-2 cups/day tea, coffeePHQ-2 AnswerDate RecordedPatient Health Questionnaire-2 Lohfd826 CommentsNoSex and Gender InformationValueDate RecordedSex Assigned at BirthNot on fileLegal BtnHphdka64/15/2023 7:08 PM EDTGender IdentityNot on fileSexual OrientationNot on filedocumented as of this encounter Plan of Treatment DateTypeDepartmentCare Team (Latest Contact Info)Htbrthpbusl61/30/2026 8:35 AM EDTOffice Visit [facility] [address] [place] [phone] Claudia Gilliam MD [address] [place] [address] [place] [address] 07/22/2026 8:30 AM ESTProcedure Visit [facility] [address] [facility] [place] [address] Davie Church DO [address] [facility] [place] [address] documented as of this encounter Procedures Procedure NamePriorityDate/TimeAssociated DiagnosisCommentsPAP TEST, EXTERNAL Hxqjxri2807/06/2024 12:00 AM EDTdocumented in this encounter Results * PAP TEST, EXTERNAL (07/06/2024 12:00 AM EDT) Narrative Authorizing ProviderResult TypeResult StatusFazio Nurse Noms Bcp ObLAB CYTOLOGY ORDERABLESFinal ResultPerforming OrganizationAddressCity/State/ZIP CodePhone Number EXTERNAL LAB documented in this encounter Visit Diagnoses Not on filedocumented in this encounter Care Teams Team MemberRelationshipSpecialtyStart DateEnd Date Lisa Bobby MD [address] [facility] 110 [place] [address] PCP - GeneralFamily Medicine02/22/23documented as of this encounter
--- OUTSIDE RECORDS SUMMARY | 2025-07-16 12:19 | XMS_ITS | Encounter Summary ---
Author Organization [facility] Address [address] [place] [address] Care Team Providers Care Tai Chi Instructor Name Role Phone Claudia Gilliam MD Unavailable [phone] Lisa Bobby MD Primary Care Provider [phone] Lisseth Villa PA-C Unavailable [phone] Source Comments In the event this information is protected by the Federal Confidentiality of Alcohol and Drug AbusePatient Records regulations: The Federal rules restrict any use of the information to criminally investigate or prosecute any alcohol or drug abuse patient.[facility] Encounter Details DateTypeDepartmentCare Team (Latest Contact Info)Jvgnblnbffd26/21/2025Travel Social History Tobacco UseTypesPacks/DayYears UsedDateSmoking Tobacco: Never AssessedPHQ-2 AnswerDate RecordedPHQ-2 bkkym298/21/2025Area Deprivation IndexAnswerDate RecordedNational Score (1-100), lower number is lower hdxq828407/11/2025State Score (1-10), lower number is lower cfez402Data from: https://www.neighborhoodatlas.medicine.[facility].edu/. Last address used for ykqyrgyobgv[address] [place]07/11/2025CommentsUnknownSex and Gender InformationValueDate RecordedSex Assigned at BirthNot on fileLegal SexFemale 07/30/2022 12:21 PM ESTGender IdentityNot on fileSexual OrientationNot on file Travel HistoryTravel StartTravel RxvYiumwlf64documented as of this encounter Plan of Treatment DateTypeDepartmentCare Team (Latest Contact Info)Caibuimcfse12/23/2026 8:30 AM EDTDistan Health Rheumatology [address] [facility] [place] [address] Siria Nair APRN.TITLE EXAMINER [address] [facility] [address] [place] [address] 6 mo follow updocumented as of this encounter Visit Diagnoses Not on filedocumented in this encounter Care Teams Team MemberRelationshipSpecialtyStart DateEnd Date Lisa Bobby MD [address] [facility] 110 [place] [address] PCP - GeneralFamily Medicine05/03/24 Claudia Gilliam MD [address] [facility] 350 [place] [address] ReferringDermatology05/03/24 Lisseth Villa PA-C [address] [facility] [address] [place] [address] ReferringFamily Medicine06/07/25documented as of this encounter
[2025-07-18 15:08] LABS: Age Gdln ACOG Testing Note (.); IGP, Aptima HPV, rfx 16/18,45 Note (.)
== END 2025-07-16 12:17 | disposition home or self-care (01) ==
LOC: LAB 12:16
PROVIDERS: Visit Provider Physician Assistant
DX: Z01.419 Encounter for gynecological examination (general) (routine) without abnormal findings (principal)
CPT/HCPCS: 87624; 88175